=== PATIENT | female | born 1965 | race African-American/Black ===

== ENCOUNTER 2017-01-22 09:29 | Emergency (ER) | payer MEDICAID ==
[~2017-01-22] VITALS: Ht 162.6 cm; Wt 55.0 kg
[~2017-01-22 09:29] MED LIST: DIPH25CA83 PO; FLUO10CA63 PO; GEMF600T PO; HYDR-519 PO; OMEP40CA34 PO; ONDA4TAB5 PO; QUET100T PO
[2017-01-22 09:32] VITALS: BP 106/66
[2017-01-22] MEDS ORDERED: SODIUM CHLORIDE 0.9% 1,000 ML IV ONE (10:42)
[2017-01-22] MEDS ORDERED: MORPHINE SULFATE 4 MG/ML CPJ (NOT FOR IM USE) IV STA (10:42)
[2017-01-22 11:25] LABS: BASOPHILS % 0.6 % (0.0-2.0); EOSINOPHILS % 0.7 % (0.0-5.0); HEMATOCRIT. 37.7 % (36.0-48.0); HEMOGLOBIN. 12.4 g/dL (12.0-16.0); LYMPHOCYTES % 27.5 % (20.0-50.0); MEAN CORPUSCULAR HEMOGLOBIN 30.3 pg (28.0-32.0); MEAN CORPUSCULAR HGB CONC 32.9 g/dL (31.0-37.0); MEAN CORPUSCULAR VOLUME 92.3 fL (81.0-99.0); MEAN PLATELET VOLUME 6.6 fl (7.4-10.4); MONOCYTES % 7.1 % (2.0-8.0); NEUTROPHILS % 64.1 % (40.0-76.0); PLATELET 407 x1000/uL (130-400); RED BLOOD CELL COUNT 4.09 mill/uL (4.2-5.4); RED CELL DISTRIBUTION WIDTH 16.2 % (11.6-14.6); WHITE BLOOD COUNT 6.9 x1000/uL (4.5-11.0)
[2017-01-22 11:32] LABS: PROTHROMBIN TIME 10.5 sec
[2017-01-22 11:40] LABS: ALANINE AMINOTRANSFERASE 18 IU/L (13-61); ANION GAP 9; CALCIUM 8.9 mg/dL (8.5-10.1); CARBON DIOXIDE 29 mEq/L (21-32); CHLORIDE 106 mEq/L (98-107); INDEX HEMOLYSI 1 (1-3); INDEX ICTERIC 1 (1-4); INDEX LIPEMIC 1 (1-3); LIPASE 259 IU/L (73-393); UREA NITROGEN BLOOD 16 mg/dL (7-21); eGFR > 60 mL/min (>60)
[2017-01-22] MEDS ORDERED: DIPHENHYDRAMINE 50MG/ML VIAL IV ONE (12:00)
[2017-01-22] MEDS ORDERED: ONDANSETRON HCL 4MG/2ML VIAL IV ONE (12:00)
[2017-01-22] MEDS ORDERED: MORPHINE SULFATE 4 MG/ML CPJ (NOT FOR IM USE) IV ONE (12:45)
== END 2017-01-22 13:50 | disposition home or self-care (01) ==
LOC: ER 10:26
DX: R10.84 Generalized abdominal pain (principal); R11.2 Nausea with vomiting, unspecified; J44.9 Chronic obstructive pulmonary disease, unspecified; K59.00 Constipation, unspecified; Z87.19 Personal history of other diseases of the digestive system; Z98.890 Other specified postprocedural states; F17.210 Nicotine dependence, cigarettes, uncomplicated
CPT/HCPCS: 36415; 74176; 80053; 83690; 85025; 85610; 96361; 96374; 96375; 96376; 99285; J1200; J2270; J2405; J7030; Z7610

== ENCOUNTER 2017-01-22 13:57 | Emergency (ER) | payer MEDICAID | END 2017-01-22 16:07 | disposition left against medical advice (07) | LOC: ER 15:56 | DX: R07.9 Chest pain, unspecified (principal); R10.9 Unspecified abdominal pain; Z53.21 Procedure and treatment not carried out due to patient leaving prior to being seen by health care provider ==

== ENCOUNTER 2017-02-27 13:39 | Emergency (ER) | payer MEDICAID ==
[~2017-02-27] VITALS: Ht 162.6 cm; Wt 55.0 kg
[2017-02-27] MEDS ORDERED: SODIUM CHLORIDE 0.9% 1,000 ML IV ONE (14:51)
[2017-02-27] MEDS ORDERED: ONDANSETRON HCL 4MG/2ML VIAL IV STA (14:51)
[2017-02-27] MEDS ORDERED: MORPHINE SULFATE 4 MG/ML CPJ (NOT FOR IM USE) IV STA (14:51)
[2017-02-27] MEDS ORDERED: FAMOTIDINE 20MG/2ML VIAL IV ONE (15:00)
[2017-02-27 15:20] LABS: BASOPHILS % 0.6 % (0.0-2.0); HEMATOCRIT. 34.9 % (36.0-48.0); HEMOGLOBIN. 11.7 g/dL (12.0-16.0); LYMPHOCYTES % 33.7 % (20.0-50.0); MEAN CORPUSCULAR HEMOGLOBIN 30.2 pg (28.0-32.0); MEAN CORPUSCULAR HGB CONC 33.5 g/dL (31.0-37.0); MEAN CORPUSCULAR VOLUME 90.1 fL (81.0-99.0); MEAN PLATELET VOLUME 6.5 fl (7.4-10.4); NEUTROPHILS % 58.7 % (40.0-76.0); PLATELET 411 x1000/uL (130-400); RED BLOOD CELL COUNT 3.88 mill/uL (4.2-5.4); RED CELL DISTRIBUTION WIDTH 15.1 % (11.6-14.6); WHITE BLOOD COUNT 8.3 x1000/uL (4.5-11.0)
[2017-02-27 15:26] LABS: PROTHROMBIN TIME 10.7 sec
[2017-02-27 15:27] LABS: ALBUMIN 3.9 g/dL (3.4-5.0); CHLORIDE 108 mEq/L (98-107); INDEX HEMOLYSI 1 (1-3); INDEX ICTERIC 1 (1-4); INDEX LIPEMIC 1 (1-3); LIPASE 170 IU/L (73-393)
[2017-02-27 15:29] LABS: CLARITY URINE CLEAR (CLEAR); COLOR URINE YELLOW (YELLOW); GLUCOSE URINE NEGATIVE (NEGATIVE); KETONES URINE TRACE (NEGATIVE); LEUKOCYTE ESTERASE URINE TRACE (NEGATIVE); NITRITE URINE NEGATIVE (NEGATIVE); OCCULT BLOOD URINE NEGATIVE (NEGATIVE); PH URINE 5.5 (4.5-8.0); PROTEIN URINE NEGATIVE (NEGATIVE); SPECIFIC GRAVITY URINE 1.041 (1.005-1.030)
[2017-02-27 15:31] LABS: HCG SCREEN NEGATIVE
[2017-02-27 15:36] LABS: ALANINE AMINOTRANSFERASE 10 IU/L (13-61); ANION GAP 12; CARBON DIOXIDE 25 mEq/L (21-32); ETHANOL BLOOD < 10 mg/dL; NT PRO B-TYPE NATRIURETIC PEP 79 pg/mL (5-125); TROPONIN I < 0.02 ng/mL (0.00-0.04); UREA NITROGEN BLOOD 15 mg/dL (7-21); eGFR > 60 mL/min (>60)
[2017-02-27 15:43] LABS: SQUAMOUS EPITHELIAL CELL URINE 1+ /lpf (RARE/1+)
[2017-02-27 15:44] LABS: BACTERIA URINE 2+; RBC URINE 0-2 /hpf (0-2)
[2017-02-27 15:53] LABS: *AMPHETAMINES SCREEN URINE NEGATIVE (NEGATIVE); *BARBITURATES SCREEN URINE NEGATIVE (NEGATIVE); *BENZODIAZEPINES SCREEN URINE NEGATIVE (NEGATIVE); *COCAINE SCREEN URINE NEGATIVE (NEGATIVE); CANNABINOID URINE SCREEN NEGATIVE (NEGATIVE); ECSTASY MDMA SCREEN URINE NEGATIVE (NEGATIVE); METHADONE URINE SCREEN NEGATIVE (NEGATIVE); OPIATES URINE SCREEN PRESUMTIVE POSITIVE (NEGATIVE); PHENCYCLIDINE URINE SCREEN NEGATIVE (NEGATIVE)
[2017-02-27] MEDS ORDERED: KETOROLAC 15MG/ML VIAL IV ONE (17:00)
[2017-02-27 17:10] VITALS: BP 148/64
== END 2017-02-27 17:25 | disposition home or self-care (01) ==
LOC: ER 14:41
DX: R07.89 Other chest pain (principal); R11.2 Nausea with vomiting, unspecified; K85.90 Acute pancreatitis without necrosis or infection, unspecified; J44.9 Chronic obstructive pulmonary disease, unspecified; M19.90 Unspecified osteoarthritis, unspecified site; F17.200 Nicotine dependence, unspecified, uncomplicated; Z93.3 Colostomy status; Z88.6 Allergy status to analgesic agent
CPT/HCPCS: 36415; 71010; 80053; 80305; 81001; 83605; 83690; 83880; 84484; 84703; 85025; 85610; 93005; 96374; 96375; 99285; G0482; J1885; J2270; J2405; J3490; J7030; Z7610

== ENCOUNTER 2017-04-24 17:59 | Emergency (ER) | payer MEDICAID ==
[~2017-04-24] VITALS: Ht 162.6 cm; Wt 56.8 kg
[2017-04-24] MEDS ORDERED: MORPHINE SULFATE 4 MG/ML CPJ (NOT FOR IM USE) IV STA (19:51)
[2017-04-24] MEDS ORDERED: METHYLPREDNISOLONE SOD SUCC 125 MG/2 ML VIAL IV STA (19:51)
[2017-04-24] MEDS ORDERED: ONDANSETRON HCL 4MG/2ML VIAL IV STA (19:51)
[2017-04-24] MEDS ORDERED: LEVOFLOXACIN 500MG TABLET PO ONE (20:00)
[2017-04-24] MEDS ORDERED: IPRATROPIUM/ALBUTEROL 0.5-3(2.5)MG/3ML NEB HHN ONE (20:00)
[2017-04-24 20:16] LABS: BASOPHILS % 1.2 % (0.0-2.0); EOSINOPHILS % 0.7 % (0.0-5.0); HEMATOCRIT. 37.2 % (36.0-48.0); HEMOGLOBIN. 12.5 g/dL (12.0-16.0); LYMPHOCYTES % 35.1 % (20.0-50.0); MEAN CORPUSCULAR HEMOGLOBIN 29.7 pg (28.0-32.0); MEAN CORPUSCULAR VOLUME 88.6 fL (81.0-99.0); MEAN PLATELET VOLUME 6.8 fl (7.4-10.4); MONOCYTES % 7.2 % (2.0-8.0); NEUTROPHILS % 55.8 % (40.0-76.0); PLATELET 479 x1000/uL (130-400)
[2017-04-24 20:23] LABS: PARTIAL THROMBOPLASTIN TIME 30.3 sec (24.0-34.0); PROTHROMBIN TIME 10.4 sec
[2017-04-24 20:25] LABS: CARBON DIOXIDE 26 mEq/L (21-32); CHLORIDE 106 mEq/L (98-107)
[2017-04-24 20:28] LABS: CREATINE KINASE 147 IU/L (26-192)
[2017-04-24 20:30] LABS: TROPONIN I < 0.02 ng/mL (0.00-0.04)
[2017-04-24 21:54] LABS: BG BASE EXCESS -1.5 mmol/L (-2.0-2.0); BG CARBOXYHEMOGLOBIN 4.2 % (0.5-1.5); BG DEOXYHEMOGLOBIN 5.5 % (0.0-5.0); BG FRACTION INSPIRED OXYGEN 21; BG HCO3 ACT 23.3 mmol/L (22.0-26.0); BG METHEMOGLOBIN 0.3 % (0.0-1.5); BG OXYGEN SATURATION 94.2 % (92.0-98.5); BG PCO2 39.7 mmHg (35.0-45.0); BG PH 7.387 (7.350-7.450); BG PO2 75.5 mmHg (75.0-100.0); BG SAMPLE SITE RIGHT BRACHIAL; BG TOTAL HEMOGLOBIN 13.8 g/dL (12.0-18.0); BG VENT MODE ROOM AIR
[2017-04-24] MEDS ORDERED: VISCOUS LIDOCAINE 2% 15 ML UDC PO STA (22:27)
[2017-04-24] MEDS ORDERED: MAGNESIUM/ALUMINUM HYDROXIDE/SIMETHICONE 30ML UDC PO STA (22:27)
[2017-04-24] MEDS ORDERED: DICYCLOMINE 10 MG/5 ML ORAL SYR PO STA (22:27)
[2017-04-24] MEDS ORDERED: FAMOTIDINE 20MG/2ML VIAL IV ONE (22:30)
[2017-04-24 23:05] VITALS: BP 126/85
== END 2017-04-25 00:15 | disposition home or self-care (01) ==
LOC: ER 04-25 00:14
DX: J44.1 Chronic obstructive pulmonary disease with (acute) exacerbation (principal); R07.89 Other chest pain; K21.9 Gastro-esophageal reflux disease without esophagitis; M19.90 Unspecified osteoarthritis, unspecified site; K29.70 Gastritis, unspecified, without bleeding; F17.210 Nicotine dependence, cigarettes, uncomplicated; Z71.6 Tobacco abuse counseling; Z87.11 Personal history of peptic ulcer disease; Z98.890 Other specified postprocedural states; Z88.6 Allergy status to analgesic agent
CPT/HCPCS: 36415; 36600; 71010; 80053; 82375; 82550; 82805; 83605; 83690; 83880; 84443; 84484; 85025; 85610; 85730; 87040; 93005; 94640; 96374; 96375; 99285; J2270; J2405; J2930; J3490; Z7610; J7620

== ENCOUNTER 2017-04-26 00:50 | Emergency (ER) | payer MEDICAID ==
[~2017-04-26] VITALS: Ht 162.6 cm; Wt 55.0 kg
[2017-04-26] MEDS ORDERED: ACETAMINOPHEN 325MG TABLET PO ONE (02:00)
[2017-04-26] MEDS ORDERED: DIPHENHYDRAMINE 25MG CAPSULE PO ONE (02:00)
[2017-04-26 02:23] LABS: BASOPHILS % 0.5 % (0.0-2.0); EOSINOPHILS % 0.2 % (0.0-5.0); HEMATOCRIT. 33.9 % (36.0-48.0); HEMOGLOBIN. 11.2 g/dL (12.0-16.0); LYMPHOCYTES % 28.4 % (20.0-50.0); MEAN CORPUSCULAR HEMOGLOBIN 29.5 pg (28.0-32.0); MEAN CORPUSCULAR VOLUME 89.2 fL (81.0-99.0); MEAN PLATELET VOLUME 6.4 fl (7.4-10.4); MONOCYTES % 6.9 % (2.0-8.0); PLATELET 408 x1000/uL (130-400); RED CELL DISTRIBUTION WIDTH 15.1 % (11.6-14.6)
[2017-04-26 02:28] LABS: INR 1.1
[2017-04-26 02:33] LABS: CARBON DIOXIDE 25 mEq/L (21-32); CHLORIDE 104 mEq/L (98-107)
[2017-04-26 03:40] VITALS: BP 152/81
== END 2017-04-26 04:31 | disposition home or self-care (01) ==
LOC: ER 00:50
DX: R10.13 Epigastric pain (principal); K21.9 Gastro-esophageal reflux disease without esophagitis; J44.9 Chronic obstructive pulmonary disease, unspecified; Z87.11 Personal history of peptic ulcer disease; Z88.6 Allergy status to analgesic agent
CPT/HCPCS: 36415; 74176; 80053; 85025; 85610; 93005; 99285; Z7610; Q0163

== ENCOUNTER 2017-06-27 20:42 | Emergency (ER) | payer MEDICAID, OTHER ==
[~2017-06-27] VITALS: Ht 162.6 cm; Wt 59.0 kg
[~2017-06-27 20:42] MED LIST changes: +CARI350T27 PO; +DIPH25CA6 PO; -DIPH25CA83 PO; -FLUO10CA63 PO; -GEMF600T PO; -HYDR-519 PO; -ONDA4TAB5 PO; +ONDA4TAB51 PO; +PROM6.25 PO; -QUET100T PO; +TRAZ-132 PO
[2017-06-27 22:57] LABS: BASOPHILS % 0.6 % (0.0-2.0); HEMATOCRIT. 28.6 % (36.0-48.0); HEMOGLOBIN. 9.6 g/dL (12.0-16.0); LYMPHOCYTES % 34.4 % (20.0-50.0); MEAN CORPUSCULAR HEMOGLOBIN 28.8 pg (28.0-32.0); MEAN CORPUSCULAR VOLUME 86.3 fL (81.0-99.0); MEAN PLATELET VOLUME 6.7 fl (7.4-10.4); MONOCYTES % 10.3 % (2.0-8.0); NEUTROPHILS % 52.7 % (40.0-76.0); PLATELET 492 x1000/uL (130-400); RED BLOOD CELL COUNT 3.31 mill/uL (4.2-5.4); RED CELL DISTRIBUTION WIDTH 16.7 % (11.6-14.6)
[2017-06-27 23:02] LABS: PROTHROMBIN TIME 10.5 sec (9.4-11.6)
[2017-06-27 23:05] LABS: CARBON DIOXIDE 24 mEq/L (21-32); CHLORIDE 109 mEq/L (98-107)
[2017-06-27 23:06] LABS: ETHANOL BLOOD < 10 mg/dL
[2017-06-27 23:12] LABS: TROPONIN I < 0.02 ng/mL (0.00-0.04)
[2017-06-27] MEDS ORDERED: ACETAMINOPHEN 325MG TABLET PO ONE (23:30)
[2017-06-28 00:03] VITALS: BP 128/72
== END 2017-06-28 00:10 | disposition left against medical advice (07) ==
LOC: ER 22:18
DX: R07.9 Chest pain, unspecified (principal); K21.9 Gastro-esophageal reflux disease without esophagitis; F41.9 Anxiety disorder, unspecified; F31.9 Bipolar disorder, unspecified; F17.200 Nicotine dependence, unspecified, uncomplicated; Z88.6 Allergy status to analgesic agent
CPT/HCPCS: 36415; 71010; 80053; 83880; 84484; 85025; 85610; 93005; 99285; G0482

== ENCOUNTER 2017-10-09 17:56 | Emergency (ER) | payer MEDICAID ==
[~2017-10-09] VITALS: Ht 162.6 cm; Wt 61.5 kg
[2017-10-09] MEDS ORDERED: HYDR-519 PO (18:26)
[2017-10-09] MEDS ORDERED: MORPHINE SULFATE 4 MG/ML CPJ (NOT FOR IM USE) IV STA (18:54)
[2017-10-09] MEDS ORDERED: SODIUM CHLORIDE 0.9% 1,000 ML IV ONE (18:54)
[2017-10-09] MEDS ORDERED: ONDANSETRON HCL 4MG/2ML VIAL IV STA (18:54)
[2017-10-09 19:28] LABS: BASOPHILS % 1.1 % (0.0-2.0); EOSINOPHILS % 1.9 % (0.0-5.0); HEMOGLOBIN. 11.1 g/dL (12.0-16.0); LYMPHOCYTES % 49.8 % (20.0-50.0); MEAN CORPUSCULAR HEMOGLOBIN 26.5 pg (28.0-32.0); MEAN CORPUSCULAR VOLUME 83.3 fL (81.0-99.0); MEAN PLATELET VOLUME 6.5 fl (7.4-10.4); MONOCYTES % 8.8 % (2.0-8.0); NEUTROPHILS % 38.4 % (40.0-76.0); PLATELET 394 x1000/uL (130-400); RED CELL DISTRIBUTION WIDTH 17.1 % (11.6-14.6)
[2017-10-09 19:33] LABS: PROTHROMBIN TIME 10.7 sec (9.4-11.6)
[2017-10-09 19:43] LABS: CARBON DIOXIDE 26 mEq/L (21-32); CHLORIDE 105 mEq/L (98-107); TROPONIN I < 0.02 ng/mL (0.00-0.04)
[2017-10-09 19:51] LABS: CLARITY URINE CLEAR (CLEAR); COLOR URINE YELLOW (YELLOW); GLUCOSE URINE NEGATIVE (NEGATIVE); KETONES URINE NEGATIVE (NEGATIVE); LEUKOCYTE ESTERASE URINE NEGATIVE (NEGATIVE); NITRITE URINE NEGATIVE (NEGATIVE); OCCULT BLOOD URINE NEGATIVE (NEGATIVE); PH URINE 5.5 (4.5-8.0); PROTEIN URINE NEGATIVE (NEGATIVE); SPECIFIC GRAVITY URINE 1.025 (1.005-1.030); UROBILINOGEN URINE 0.2 E.U./dL (0.2-1.0)
[2017-10-09 22:00] VITALS: BP 122/80
== END 2017-10-10 02:12 | disposition home or self-care (01) ==
LOC: ER 17:56
DX: R07.89 Other chest pain (principal); R11.0 Nausea; R19.7 Diarrhea, unspecified; K21.9 Gastro-esophageal reflux disease without esophagitis; J43.9 Emphysema, unspecified; F17.210 Nicotine dependence, cigarettes, uncomplicated; Z87.11 Personal history of peptic ulcer disease; Z87.19 Personal history of other diseases of the digestive system; K83.8 Other specified diseases of biliary tract
CPT/HCPCS: 36415; 71010; 74177; 76705; 80053; 81003; 83880; 84484; 85025; 85610; 93005; 96361; 96374; 96375; 99285; J2270; J2405; J7030; Z7610

== ENCOUNTER 2017-10-31 11:37 | Emergency (ER) | payer MEDICAID ==
[~2017-10-31] VITALS: Ht 162.6 cm; Wt 59.0 kg
[~2017-10-31 11:37] MED LIST changes: +HYDR-519 PO
[2017-10-31] MEDS ORDERED: MORPHINE SULFATE 4 MG/ML CPJ (NOT FOR IM USE) IV STA (15:43)
[2017-10-31] MEDS ORDERED: SODIUM CHLORIDE 0.9% 1,000 ML IV ONE (15:43)
[2017-10-31] MEDS ORDERED: ONDANSETRON HCL 4MG/2ML VIAL IV STA (15:43)
[2017-10-31 16:05] LABS: BASOPHILS % 1.3 % (0.0-2.0); EOSINOPHILS % 1.3 % (0.0-5.0); HEMATOCRIT. 35.1 % (36.0-48.0); HEMOGLOBIN. 11.4 g/dL (12.0-16.0); LYMPHOCYTES % 41.9 % (20.0-50.0); MEAN CORPUSCULAR HEMOGLOBIN 26.8 pg (28.0-32.0); MEAN PLATELET VOLUME 6.5 fl (7.4-10.4); MONOCYTES % 7.1 % (2.0-8.0); NEUTROPHILS % 48.4 % (40.0-76.0); PLATELET 492 x1000/uL (130-400); RED BLOOD CELL COUNT 4.24 mill/uL (4.2-5.4); RED CELL DISTRIBUTION WIDTH 17.4 % (11.6-14.6)
[2017-10-31 16:08] LABS: INR 1.1
[2017-10-31 16:12] LABS: CHLORIDE 106 mEq/L (98-107)
[2017-10-31 16:18] LABS: CARBON DIOXIDE 24 mEq/L (21-32)
[2017-10-31] MEDS ORDERED: IOHEXOL-300 100 ML BOTTLE ONE (16:42)
[2017-10-31] MEDS ORDERED: DIPHENHYDRAMINE 50MG/ML VIAL IV ONE (16:45)
[2017-10-31 19:04] LABS: KETONES URINE NEGATIVE (NEGATIVE); LEUKOCYTE ESTERASE URINE NEGATIVE (NEGATIVE); NITRITE URINE NEGATIVE (NEGATIVE); OCCULT BLOOD URINE NEGATIVE (NEGATIVE); PROTEIN URINE NEGATIVE (NEGATIVE); SPECIFIC GRAVITY URINE 1.026 (1.005-1.030); UROBILINOGEN URINE 0.2 E.U./dL (0.2-1.0)
[2017-10-31 19:06] LABS: CLARITY URINE CLEAR (CLEAR); COLOR URINE YELLOW (YELLOW)
[2017-10-31 19:25] VITALS: BP 113/54
== END 2017-10-31 19:55 | disposition home or self-care (01) ==
LOC: ER 13:04
DX: R10.84 Generalized abdominal pain (principal); G89.29 Other chronic pain; R11.2 Nausea with vomiting, unspecified; R19.7 Diarrhea, unspecified; K21.9 Gastro-esophageal reflux disease without esophagitis; I51.7 Cardiomegaly; F17.210 Nicotine dependence, cigarettes, uncomplicated; Z87.19 Personal history of other diseases of the digestive system; Z86.59 Personal history of other mental and behavioral disorders; Z88.6 Allergy status to analgesic agent
CPT/HCPCS: 36415; 74177; 80053; 81003; 81025; 83690; 85025; 85610; 93005; 96361; 96374; 96375; 99285; J1200; J2270; J2405; Q9967; J7030

== ENCOUNTER 2017-11-12 09:52 | Inpatient (IN) | payer MEDICAID ==
[~2017-11-12] VITALS: Ht 162.6 cm; Wt 59.9 kg
[2017-11-12] MEDS ORDERED: ONDANSETRON HCL 4MG/2ML VIAL IV STA (11:50)
[2017-11-12] MEDS ORDERED: MORPHINE SULFATE 4 MG/ML CPJ (NOT FOR IM USE) IV STA (11:50)
[2017-11-12] MEDS ORDERED: SODIUM CHLORIDE 0.9% 1,000 ML IV ONE (11:50)
[2017-11-12 12:22] LABS: HEMATOCRIT. 36.5 % (36.0-48.0); HEMOGLOBIN. 11.8 g/dL (12.0-16.0); LYMPHOCYTES % 22.9 % (20.0-50.0); MEAN CORPUSCULAR HEMOGLOBIN 26.8 pg (28.0-32.0); MEAN PLATELET VOLUME 6.5 fl (7.4-10.4); MONOCYTES % 5.9 % (2.0-8.0); NEUTROPHILS % 69.5 % (40.0-76.0); PLATELET 491 x1000/uL (130-400); RED CELL DISTRIBUTION WIDTH 18.1 % (11.6-14.6)
[2017-11-12 12:23] LABS: BASOPHILS % 0.4 % (0.0-2.0); EOSINOPHILS % 1.3 % (0.0-5.0)
[2017-11-12 12:28] LABS: PROTHROMBIN TIME 10.7 sec (9.4-11.6)
[2017-11-12 12:33] LABS: CARBON DIOXIDE 24 mEq/L (21-32); CHLORIDE 104 mEq/L (98-107); ETHANOL BLOOD < 10 mg/dL
[2017-11-12] MEDS ORDERED: IOHEXOL-300 100 ML BOTTLE ONE (13:42)
[2017-11-12] MEDS ORDERED: DIPHENHYDRAMINE 50MG/ML VIAL IV ONE (14:30)
[2017-11-12 14:54] LABS: CLARITY URINE CLEAR (CLEAR); COLOR URINE YELLOW (YELLOW); KETONES URINE NEGATIVE (NEGATIVE); LEUKOCYTE ESTERASE URINE NEGATIVE (NEGATIVE); NITRITE URINE NEGATIVE (NEGATIVE); OCCULT BLOOD URINE NEGATIVE (NEGATIVE); PH URINE 5.5 (4.5-8.0); PROTEIN URINE NEGATIVE (NEGATIVE); SPECIFIC GRAVITY URINE 1.014 (1.005-1.030); UROBILINOGEN URINE 0.2 E.U./dL (0.2-1.0)
[2017-11-12 15:15] LABS: *AMPHETAMINES SCREEN URINE NEGATIVE (NEGATIVE); *BARBITURATES SCREEN URINE NEGATIVE (NEGATIVE); *BENZODIAZEPINES SCREEN URINE NEGATIVE (NEGATIVE); *COCAINE SCREEN URINE NEGATIVE (NEGATIVE); CANNABINOID URINE SCREEN NEGATIVE (NEGATIVE); METHADONE URINE SCREEN NEGATIVE (NEGATIVE); OPIATES URINE SCREEN PRESUMTIVE POSITIVE (NEGATIVE); PHENCYCLIDINE URINE SCREEN NEGATIVE (NEGATIVE)
[2017-11-12] MEDS ORDERED: MORPHINE SULFATE 4 MG/ML CPJ (NOT FOR IM USE) IV ONE (16:00)
[2017-11-12] MEDS: DIPHENHYDRAMINE 50MG/ML VIAL IV PRN (23:24)
[2017-11-12] MEDS: MORPHINE SULFATE 4 MG/ML CPJ (NOT FOR IM USE) IV PRN (23:24)
[2017-11-12] MEDS ORDERED: SERTRALINE HCL 50MG TABLET PO NR (23:28)
[2017-11-13 02:00] VITALS: BP 95/59
[2017-11-13] MEDS ORDERED: LORA-250 PO (02:03)
[2017-11-13 02:29] VITALS: BP 95/59
[2017-11-13] MEDS ORDERED: DIPHENHYDRAMINE 25MG CAPSULE PO PRN (03:45)
[2017-11-13] MEDS ORDERED: ONDANSETRON 4MG ODT PO PRN (03:45)
[2017-11-13] MEDS ORDERED: HYDROCODONE/ACETAMINOPHEN 10/325MG TABLET PO PRN (03:45)
[2017-11-13] MEDS ORDERED: PROMETHAZINE HCL 6.25 MG/5 ML 118ML PO PRN (05:00)
[2017-11-13] MEDS: MORPHINE SULFATE 4 MG/ML CPJ (NOT FOR IM USE) IV PRN ×4 (05:39→20:26)
[2017-11-13] MEDS: DIPHENHYDRAMINE 50MG/ML VIAL IV PRN ×2 (07:53→20:25)
[2017-11-13] MEDS: OMEPRAZOLE 20MG CAPSULE EXTENDED RELEASE PO SCH (07:53)
[2017-11-13 08:00] VITALS: BP 109/73
[2017-11-13] MEDS ORDERED: MEDICATION NOT ON FORMULARY EA (Omeprazole 40 MG) PO SCH (09:00)
[2017-11-13] MEDS: CARISOPRODOL 350 MG TABLET PO SCH ×3 (09:56→18:36)
[2017-11-13] MEDS: LORAZEPAM 1MG TABLET PO PRN (11:59)
[2017-11-13 12:00] VITALS: BP 94/61
[2017-11-13 16:00] VITALS: BP 104/61
[2017-11-14] VITALS: BP 115/76
[2017-11-14] MEDS: TRAZODONE HCL 100MG TABLET PO PRN ×2 (00:50→22:31)
[2017-11-14] MEDS: MORPHINE SULFATE 4 MG/ML CPJ (NOT FOR IM USE) IV PRN ×5 (00:51→20:45)
[2017-11-14] MEDS: DIPHENHYDRAMINE 50MG/ML VIAL IV PRN ×3 (04:04→22:31)
[2017-11-14 04:18] VITALS: BP 110/67
[2017-11-14] MEDS: OMEPRAZOLE 20MG CAPSULE EXTENDED RELEASE PO SCH (07:20)
[2017-11-14 08:00] VITALS: BP 110/66
[2017-11-14] MEDS: CARISOPRODOL 350 MG TABLET PO SCH ×2 (09:31→13:04)
[2017-11-14 12:00] VITALS: BP 111/64
[2017-11-14] MEDS: LORAZEPAM 1MG TABLET PO PRN (14:02)
[2017-11-14 16:00] VITALS: BP 88/55
[2017-11-14] MEDS ORDERED: CARISOPRODOL 350 MG TABLET PO PRN (17:15)
[2017-11-14] MEDS: SODIUM CHLORIDE 0.9% 1,000 ML IV SCH (18:14)
[2017-11-14 20:00] VITALS: BP 109/64
[2017-11-15] VITALS: BP 103/61
[2017-11-15] MEDS: MORPHINE SULFATE 4 MG/ML CPJ (NOT FOR IM USE) IV PRN ×3 (01:29→09:58)
[2017-11-15 04:00] VITALS: BP 107/63
[2017-11-15] MEDS: OMEPRAZOLE 20MG CAPSULE EXTENDED RELEASE PO SCH (07:38)
[2017-11-15 08:00] VITALS: BP 106/63
[2017-11-15] MEDS: SODIUM CHLORIDE 0.9% 1,000 ML IV SCH (08:04)
[2017-11-15] MEDS: DIPHENHYDRAMINE 50MG/ML VIAL IV PRN (08:14)
[2017-11-15 12:00] VITALS: BP 124/71
[2017-11-15 13:20] VITALS: BP 124/71
== END 2017-11-15 13:45 | disposition home or self-care (01) | DRG 241 ==
LOC: ER 10:35 → 6EST 14:22 → EDBEDREQ 14:25 → ENRESERV 11-13 00:09 → EDBEDREQ 11-13 00:23
PROVIDERS: ADMIT Internal Medicine; ATTEND Internal Medicine
DX: K29.70 Gastritis, unspecified, without bleeding (principal); K31.1 Adult hypertrophic pyloric stenosis; J43.9 Emphysema, unspecified; D64.9 Anemia, unspecified; K21.9 Gastro-esophageal reflux disease without esophagitis; F17.210 Nicotine dependence, cigarettes, uncomplicated; F41.9 Anxiety disorder, unspecified; Z87.11 Personal history of peptic ulcer disease; Z79.899 Other long term (current) drug therapy; Z88.6 Allergy status to analgesic agent; Z93.3 Colostomy status
CPT/HCPCS: 36415; 74177; 80053; 80305; 81003; 83690; 84484; 85025; 85610; 85730; 93005; 96374; 96375; 96376; 99285; G0482; J1200; J2270; J2405; J7030; Q0169; Q9967

== ENCOUNTER 2017-12-13 13:48 | Emergency (ER) | payer MEDICAID ==
[~2017-12-13] VITALS: Ht 162.6 cm; Wt 61.0 kg
[~2017-12-13 13:48] MED LIST changes: +LORA-250 PO
[2017-12-13] MEDS ORDERED: ONDANSETRON HCL 4MG/2ML VIAL IV STA (16:55)
[2017-12-13] MEDS ORDERED: MORPHINE SULFATE 4 MG/ML CPJ (NOT FOR IM USE) IV STA (16:55)
[2017-12-13] MEDS ORDERED: SODIUM CHLORIDE 0.9% 1,000 ML IV ONE (16:55)
[2017-12-13 17:25] LABS: BASOPHILS % 0.4 % (0.0-2.0); EOSINOPHILS % 1.8 % (0.0-5.0); HEMATOCRIT. 34.4 % (36.0-48.0); HEMOGLOBIN. 11.1 g/dL (12.0-16.0); LYMPHOCYTES % 44.4 % (20.0-50.0); MEAN CORPUSCULAR HEMOGLOBIN 26.8 pg (28.0-32.0); MEAN CORPUSCULAR VOLUME 83.1 fL (81.0-99.0); MEAN PLATELET VOLUME 6.5 fl (7.4-10.4); MONOCYTES % 7.9 % (2.0-8.0); NEUTROPHILS % 45.5 % (40.0-76.0); PLATELET 393 x1000/uL (130-400); RED BLOOD CELL COUNT 4.14 mill/uL (4.2-5.4); RED CELL DISTRIBUTION WIDTH 19.5 % (11.6-14.6)
[2017-12-13 17:34] LABS: CHLORIDE 107 mEq/L (98-107)
[2017-12-13] MEDS ORDERED: MECLIZINE 25MG TABLET PO ONE (18:15)
[2017-12-13 18:27] LABS: CLARITY URINE CLEAR (CLEAR); COLOR URINE YELLOW (YELLOW); KETONES URINE NEGATIVE (NEGATIVE); LEUKOCYTE ESTERASE URINE TRACE (NEGATIVE); NITRITE URINE NEGATIVE (NEGATIVE); OCCULT BLOOD URINE NEGATIVE (NEGATIVE); PH URINE 5.5 (4.5-8.0); PROTEIN URINE NEGATIVE (NEGATIVE); SPECIFIC GRAVITY URINE 1.018 (1.005-1.030); UROBILINOGEN URINE 0.2 E.U./dL (0.2-1.0)
[2017-12-13 18:38] LABS: *AMPHETAMINES SCREEN URINE NEGATIVE (NEGATIVE); *BARBITURATES SCREEN URINE NEGATIVE (NEGATIVE); *BENZODIAZEPINES SCREEN URINE NEGATIVE (NEGATIVE); *COCAINE SCREEN URINE NEGATIVE (NEGATIVE); CANNABINOID URINE SCREEN NEGATIVE (NEGATIVE); METHADONE URINE SCREEN NEGATIVE (NEGATIVE); OPIATES URINE SCREEN PRESUMTIVE POSITIVE (NEGATIVE); PHENCYCLIDINE URINE SCREEN NEGATIVE (NEGATIVE)
[2017-12-13 19:40] VITALS: BP 123/74
== END 2017-12-13 20:02 | disposition home or self-care (01) ==
LOC: ER 13:48
DX: R10.9 Unspecified abdominal pain (principal); R19.7 Diarrhea, unspecified; R11.0 Nausea; R42 Dizziness and giddiness; M79.1 Myalgia; K21.9 Gastro-esophageal reflux disease without esophagitis; F41.9 Anxiety disorder, unspecified; F17.200 Nicotine dependence, unspecified, uncomplicated; Z88.6 Allergy status to analgesic agent
CPT/HCPCS: 36415; 71045; 80053; 80305; 81001; 81025; 83690; 85025; 93005; 96361; 96374; 96375; 99285; J2270; J2405; J7030; Z7610; J8597

== ENCOUNTER 2017-12-23 07:23 | Inpatient (IN) | payer MEDICAID ==
[~2017-12-23] VITALS: Ht 162.6 cm; Wt 63.5 kg
[~2017-12-23 07:23] MED LIST changes: -PROM6.25 PO; +PROM6.254 PO; -TRAZ-132 PO; +TRAZ-213 PO
[2017-12-23] MEDS ORDERED: MORPHINE SULFATE 4 MG/ML CPJ (NOT FOR IM USE) IV STA (08:20)
[2017-12-23] MEDS ORDERED: ONDANSETRON HCL 4MG/2ML INJ IV STA (08:20)
[2017-12-23] MEDS ORDERED: ASPIRIN 81MG TABLET PO STA (08:20)
[2017-12-23] MEDS: NITROGLYCERIN 0.4MG TABLET SL SL PRN ×2 (08:39→08:46)
[2017-12-23 09:05] LABS: EOSINOPHILS % 1.9 % (0.0-5.0); HEMATOCRIT. 34.3 % (36.0-48.0); HEMOGLOBIN. 11.2 g/dL (12.0-16.0); LYMPHOCYTES % 22.1 % (20.0-50.0); MEAN CORPUSCULAR HEMOGLOBIN 27.7 pg (28.0-32.0); MEAN CORPUSCULAR VOLUME 84.8 fL (81.0-99.0); MEAN PLATELET VOLUME 6.5 fl (7.4-10.4); MONOCYTES % 6.1 % (2.0-8.0); NEUTROPHILS % 68.9 % (40.0-76.0); PLATELET 418 x1000/uL (130-400); RED BLOOD CELL COUNT 4.05 mill/uL (4.2-5.4); RED CELL DISTRIBUTION WIDTH 18.4 % (11.6-14.6)
[2017-12-23 09:16] LABS: CHLORIDE 107 mEq/L (98-107); PARTIAL THROMBOPLASTIN TIME 31.7 sec (23.4-31.0); PROTHROMBIN TIME 10.2 sec (9.4-11.6)
[2017-12-23] MEDS ORDERED: MORPHINE SULFATE 4 MG/ML CPJ (NOT FOR IM USE) IV PRN ×2 (12:10→16:00)
[2017-12-23] MEDS ORDERED: QUET300T2 PO (14:02)
[2017-12-23] MEDS ORDERED: MAGN296S49 PO (14:02)
[2017-12-23 14:14] VITALS: BP 100/50
[2017-12-23] MEDS ORDERED: ONDANSETRON HCL 4MG/2ML INJ IV PRN (15:00)
[2017-12-23] MEDS ORDERED: MAGNESIUM/ALUMINUM HYDROXIDE/SIMETHICONE 30ML UDC PO PRN (15:00)
[2017-12-23] MEDS ORDERED: LORAZEPAM 0.5MG TABLET PO PRN (15:00)
[2017-12-23] MEDS ORDERED: HYDROMORPHONE HCL/PF 2MG/ML CPJ IV PRN (15:00)
[2017-12-23] MEDS ORDERED: CLONIDINE 0.1MG TABLET PO PRN (15:00)
[2017-12-23] MEDS ORDERED: ACETAMINOPHEN 650MG/20.3ML UDC GT PRN (15:00)
[2017-12-23] MEDS: DEXT 5%/0.45% NACL 1000ML 1,000 ML IV SCH (16:58)
[2017-12-23] MEDS: ENOXAPARIN 40MG/0.4ML SYR SUBCUT SCH (16:58)
[2017-12-23] MEDS: HYDROCODONE/ACETAMINOPHEN 5/325MG TABLET PO PRN (18:35)
[2017-12-23 20:00] VITALS: BP 103/62
[2017-12-23] MEDS: LORAZEPAM 2MG/ML CPJ IV PRN (20:48)
[2017-12-23] MEDS ORDERED: ONDANSETRON 4MG ODT PO PRN (22:15)
[2017-12-23] MEDS ORDERED: HYDROCODONE/ACETAMINOPHEN 10/325MG TABLET PO PRN (22:15)
[2017-12-23] MEDS ORDERED: LORAZEPAM 1MG TABLET PO PRN (22:15)
[2017-12-23] MEDS ORDERED: DIPHENHYDRAMINE 25MG CAPSULE PO PRN (22:15)
[2017-12-23] MEDS ORDERED: TRAZODONE HCL 100MG TABLET PO PRN (22:15)
[2017-12-24] VITALS: BP 98/62
[2017-12-24] MEDS ORDERED: PROMETHAZINE HCL 6.25 MG/5 ML 118ML PO PRN
[2017-12-24] MEDS: MORPHINE SULFATE 4 MG/ML CPJ (NOT FOR IM USE) IV PRN ×6 (00:33→21:36)
[2017-12-24] MEDS: LORAZEPAM 2MG/ML CPJ IV PRN (02:12)
[2017-12-24 04:00] VITALS: BP 115/63
[2017-12-24] MEDS: OMEPRAZOLE 20MG CAPSULE EXTENDED RELEASE PO SCH (06:03)
[2017-12-24] MEDS: HYDROCODONE/ACETAMINOPHEN 5/325MG TABLET PO PRN ×2 (06:04→11:08)
[2017-12-24 06:34] LABS: BASOPHILS % 0.6 % (0.0-2.0); EOSINOPHILS % 2.2 % (0.0-5.0); HEMATOCRIT. 32.1 % (36.0-48.0); HEMOGLOBIN. 10.4 g/dL (12.0-16.0); LYMPHOCYTES % 35.7 % (20.0-50.0); MEAN CORPUSCULAR HEMOGLOBIN 27.3 pg (28.0-32.0); MEAN CORPUSCULAR VOLUME 84.6 fL (81.0-99.0); MEAN PLATELET VOLUME 6.7 fl (7.4-10.4); MONOCYTES % 9.3 % (2.0-8.0); NEUTROPHILS % 52.2 % (40.0-76.0); PLATELET 409 x1000/uL (130-400); RED CELL DISTRIBUTION WIDTH 18.4 % (11.6-14.6)
[2017-12-24 06:59] LABS: CHLORIDE 103 mEq/L (98-107)
[2017-12-24 07:07] LABS: PHOSPHORUS 4.8 mg/dL (2.5-4.9)
[2017-12-24 08:00] VITALS: BP 99/54
[2017-12-24] MEDS ORDERED: CARISOPRODOL 350 MG TABLET PO SCH (09:00)
[2017-12-24] MEDS: MAGNESIUM CITRATE 300ML SOLUTION PO SCH ×3 (09:54→17:00)
[2017-12-24] MEDS ORDERED: SODIUM POLYSTYRENE SULFONATE 15 G/60 ML BOT PO SCH (10:15)
[2017-12-24] MEDS: CARISOPRODOL 350 MG TABLET PO SCH ×2 (10:36→18:48)
[2017-12-24] MEDS: DEXT 5%/0.45% NACL 1000ML 1,000 ML IV SCH (11:14)
[2017-12-24 11:20] LABS: *AMPHETAMINES SCREEN URINE NEGATIVE (NEGATIVE); *BARBITURATES SCREEN URINE NEGATIVE (NEGATIVE); *BENZODIAZEPINES SCREEN URINE NEGATIVE (NEGATIVE); *COCAINE SCREEN URINE NEGATIVE (NEGATIVE); CANNABINOID URINE SCREEN NEGATIVE (NEGATIVE); METHADONE URINE SCREEN NEGATIVE (NEGATIVE); OPIATES URINE SCREEN PRESUMTIVE POSITIVE (NEGATIVE); PHENCYCLIDINE URINE SCREEN NEGATIVE (NEGATIVE)
[2017-12-24 12:00] VITALS: BP 123/59
[2017-12-24] MEDS: ENOXAPARIN 40MG/0.4ML SYR SUBCUT SCH (15:59)
[2017-12-24 16:00] VITALS: BP 92/52
[2017-12-24 18:40] LABS: *AMPHETAMINES SCREEN URINE NEGATIVE (NEGATIVE); *BARBITURATES SCREEN URINE NEGATIVE (NEGATIVE); *BENZODIAZEPINES SCREEN URINE NEGATIVE (NEGATIVE); *COCAINE SCREEN URINE NEGATIVE (NEGATIVE); CANNABINOID URINE SCREEN NEGATIVE (NEGATIVE); METHADONE URINE SCREEN NEGATIVE (NEGATIVE); OPIATES URINE SCREEN PRESUMTIVE POSITIVE (NEGATIVE); PHENCYCLIDINE URINE SCREEN NEGATIVE (NEGATIVE)
[2017-12-24 20:00] VITALS: BP 103/46
[2017-12-25] VITALS: BP 112/58
[2017-12-25] MEDS: MORPHINE SULFATE 4 MG/ML CPJ (NOT FOR IM USE) IV PRN ×4 (01:44→13:59)
[2017-12-25] MEDS: OMEPRAZOLE 20MG CAPSULE EXTENDED RELEASE PO SCH (05:49)
[2017-12-25 08:00] VITALS: BP 116/69
[2017-12-25] MEDS: DEXT 5%/0.45% NACL 1000ML 1,000 ML IV SCH (08:55)
[2017-12-25] MEDS: CARISOPRODOL 350 MG TABLET PO SCH (09:00)
[2017-12-25] MEDS: MAGNESIUM CITRATE 300ML SOLUTION PO SCH ×2 (09:00→13:00)
[2017-12-25 12:00] VITALS: BP 107/60
[2017-12-25] MEDS: ENOXAPARIN 40MG/0.4ML SYR SUBCUT SCH (15:17)
[2017-12-25 16:00] VITALS: BP 107/52
[2017-12-25 16:24] VITALS: BP 116/69
[2017-12-25 16:31] LABS: BASOPHILS % 0.4 % (0.0-2.0); EOSINOPHILS % 2.8 % (0.0-5.0); LYMPHOCYTES % 40.1 % (20.0-50.0); MEAN CORPUSCULAR HEMOGLOBIN 28.2 pg (28.0-32.0); MEAN CORPUSCULAR VOLUME 84.9 fL (81.0-99.0); MEAN PLATELET VOLUME 6.6 fl (7.4-10.4); MONOCYTES % 11.9 % (2.0-8.0); NEUTROPHILS % 44.8 % (40.0-76.0); PLATELET 414 x1000/uL (130-400); RED BLOOD CELL COUNT 3.88 mill/uL (4.2-5.4); RED CELL DISTRIBUTION WIDTH 18.3 % (11.6-14.6)
[2017-12-25 16:43] LABS: CHLORIDE 102 mEq/L (98-107)
[2018-03-22] MEDS ORDERED: TRAZ-213 PO (13:57)
[2018-03-22] MEDS ORDERED: FOLI-43 PO (13:57)
[2018-03-22] MEDS ORDERED: THIA100T72 PO (13:57)
[2018-03-22] MEDS ORDERED: LORA-250 PO (13:57)
[2018-03-22] MEDS ORDERED: PROM-177 PO (13:57)
[2018-03-22] MEDS ORDERED: OMEP20CA10 PO (13:57)
[2018-04-16] MEDS ORDERED: MULT-1146 PO (08:48)
== END 2017-12-25 17:00 | disposition home or self-care (01) | DRG 241 ==
LOC: ER 07:53 → 5WST 09:56 → EDBEDREQTM 09:58 → EDBEDREQ 09:58 → ENRESERV 13:36
PROVIDERS: ADMIT Internal Medicine Nephrology; ATTEND Internal Medicine Nephrology
DX: K29.70 Gastritis, unspecified, without bleeding (principal); J43.9 Emphysema, unspecified; D50.9 Iron deficiency anemia, unspecified; F41.9 Anxiety disorder, unspecified; F17.200 Nicotine dependence, unspecified, uncomplicated; G89.29 Other chronic pain; R07.89 Other chest pain; K21.9 Gastro-esophageal reflux disease without esophagitis; Z76.5 Malingerer [conscious simulation]; Z88.8 Allergy status to other drugs, medicaments and biological substances; Z79.899 Other long term (current) drug therapy; Z72.89 Other problems related to lifestyle
CPT/HCPCS: 36415; 71045; 74018; 80048; 80305; 83735; 84100; 84484; 86850; 86900; 93005; 96374; 96375; 96376; 99285; J1170; J1650; J2060; J2270; J2405; J3490; Q0169

== ENCOUNTER 2018-01-07 11:21 | Emergency (ER) | payer MEDICAID ==
[~2018-01-07] VITALS: Ht 162.6 cm; Wt 61.0 kg
[~2018-01-07 11:21] MED LIST changes: +MAGN296S49 PO; +PROM6.25 PO; -PROM6.254 PO; +QUET300T2 PO; +TRAZ-132 PO; -TRAZ-213 PO
[2018-01-07 14:36] LABS: CLARITY URINE CLEAR (CLEAR); COLOR URINE YELLOW (YELLOW); KETONES URINE NEGATIVE (NEGATIVE); LEUKOCYTE ESTERASE URINE NEGATIVE (NEGATIVE); NITRITE URINE NEGATIVE (NEGATIVE); OCCULT BLOOD URINE NEGATIVE (NEGATIVE); PROTEIN URINE NEGATIVE (NEGATIVE); SPECIFIC GRAVITY URINE 1.034 (1.005-1.030); UROBILINOGEN URINE 0.2 E.U./dL (0.2-1.0)
[2018-01-07 14:42] LABS: BASOPHILS % 0.6 % (0.0-2.0); EOSINOPHILS % 1.5 % (0.0-5.0); HEMATOCRIT. 33.8 % (36.0-48.0); HEMOGLOBIN. 11.2 g/dL (12.0-16.0); LYMPHOCYTES % 40.2 % (20.0-50.0); MEAN CORPUSCULAR HEMOGLOBIN 27.6 pg (28.0-32.0); MEAN CORPUSCULAR VOLUME 83.2 fL (81.0-99.0); MEAN PLATELET VOLUME 6.5 fl (7.4-10.4); MONOCYTES % 7.8 % (2.0-8.0); NEUTROPHILS % 49.9 % (40.0-76.0); PLATELET 491 x1000/uL (130-400); RED BLOOD CELL COUNT 4.06 mill/uL (4.2-5.4); RED CELL DISTRIBUTION WIDTH 18.1 % (11.6-14.6)
[2018-01-07 14:44] LABS: CHLORIDE 109 mEq/L (98-107)
[2018-01-07] MEDS ORDERED: ONDANSETRON HCL 4MG/2ML VIAL IV ONE (14:45)
[2018-01-07] MEDS ORDERED: SODIUM CHLORIDE 0.9% 1,000 ML IV ONE (14:45)
[2018-01-07] MEDS ORDERED: HYDROCODONE/ACETAMINOPHEN 5/325MG TABLET PO ONE (14:45)
[2018-01-07] MEDS ORDERED: MORPHINE SULFATE 2 MG/ML CPJ (NOT FOR IM USE) IV ONE (15:00)
[2018-01-07 15:15] LABS: HCG SCREEN NEGATIVE
[2018-01-07] MEDS ORDERED: MORPHINE SULFATE 4 MG/ML CPJ (NOT FOR IM USE) IV ONE (15:15)
[2018-01-07] MEDS ORDERED: IOHEXOL-300 100 ML BOTTLE ONE (15:52)
[2018-01-07 17:26] VITALS: BP 108/66
== END 2018-01-07 18:24 | disposition home or self-care (01) ==
LOC: ER 12:15
DX: R10.84 Generalized abdominal pain (principal); D50.9 Iron deficiency anemia, unspecified; G89.29 Other chronic pain; F17.200 Nicotine dependence, unspecified, uncomplicated; Z76.5 Malingerer [conscious simulation]; Z87.19 Personal history of other diseases of the digestive system; Z88.6 Allergy status to analgesic agent; Z98.890 Other specified postprocedural states
CPT/HCPCS: 36415; 71046; 74177; 80053; 81003; 83690; 84703; 85025; 87804; 96361; 96374; 96375; 99285; J2270; J2405; J7030; Q9967; Z7610

== ENCOUNTER 2018-01-24 17:32 | Emergency (ER) | payer MEDICAID ==
[~2018-01-24] VITALS: Ht 162.6 cm; Wt 60.0 kg
[2018-01-24 17:46] VITALS: BP 112/81
[2018-01-24 18:49] LABS: BASOPHILS % 0.9 % (0.0-2.0); EOSINOPHILS % 2.3 % (0.0-5.0); HEMATOCRIT. 37.8 % (36.0-48.0); HEMOGLOBIN. 12.6 g/dL (12.0-16.0); MEAN CORPUSCULAR HEMOGLOBIN 28.3 pg (28.0-32.0); MEAN CORPUSCULAR VOLUME 84.7 fL (81.0-99.0); MEAN PLATELET VOLUME 6.3 fl (7.4-10.4); MONOCYTES % 8.1 % (2.0-8.0); NEUTROPHILS % 43.7 % (40.0-76.0); PLATELET 575 x1000/uL (130-400); RED BLOOD CELL COUNT 4.46 mill/uL (4.2-5.4); RED CELL DISTRIBUTION WIDTH 18.8 % (11.6-14.6)
[2018-01-24 18:53] LABS: CHLORIDE 108 mEq/L (98-107)
[2018-01-24 18:56] LABS: PROTHROMBIN TIME 10.2 sec (9.4-11.6)
== END 2018-01-24 23:00 | disposition left against medical advice (07) ==
LOC: ER 18:29
DX: F17.200 Nicotine dependence, unspecified, uncomplicated (principal); Z98.890 Other specified postprocedural states; Z88.6 Allergy status to analgesic agent
CPT/HCPCS: 36415; 80053; 83690; 85025; 85610; 99284

== ENCOUNTER 2018-03-18 14:27 | Emergency (ER) | payer MEDICAID ==
[~2018-03-18] VITALS: Ht 162.6 cm; Wt 62.0 kg
[2018-03-18] MEDS ORDERED: KETOROLAC 30MG/ML VIAL IV STA (14:43)
[2018-03-18] MEDS ORDERED: SODIUM CHLORIDE 0.9% 1,000 ML IV ONE (14:43)
[2018-03-18] MEDS ORDERED: ONDANSETRON HCL 4MG/2ML VIAL IV STA (14:43)
[2018-03-18 14:56] LABS: BASOPHILS % 0.4 % (0.0-2.0); EOSINOPHILS % 0.5 % (0.0-5.0); HEMATOCRIT. 38.4 % (36.0-48.0); HEMOGLOBIN. 12.6 g/dL (12.0-16.0); LYMPHOCYTES % 12.5 % (20.0-50.0); MEAN CORPUSCULAR HEMOGLOBIN 28.3 pg (28.0-32.0); NEUTROPHILS % 82.6 % (40.0-76.0); PLATELET 578 x1000/uL (130-400); RED BLOOD CELL COUNT 4.46 mill/uL (4.2-5.4); RED CELL DISTRIBUTION WIDTH 17.8 % (11.6-14.6)
[2018-03-18 15:01] LABS: CHLORIDE 105 mEq/L (98-107)
[2018-03-18 19:11] LABS: CLARITY URINE CLEAR (CLEAR); COLOR URINE YELLOW (YELLOW); KETONES URINE TRACE (NEGATIVE); LEUKOCYTE ESTERASE URINE NEGATIVE (NEGATIVE); NITRITE URINE NEGATIVE (NEGATIVE); OCCULT BLOOD URINE NEGATIVE (NEGATIVE); PH URINE 5.5 (4.5-8.0); PROTEIN URINE NEGATIVE (NEGATIVE); SPECIFIC GRAVITY URINE 1.036 (1.005-1.030); UROBILINOGEN URINE 0.2 E.U./dL (0.2-1.0)
[2018-03-18] MEDS ORDERED: ACETAMINOPHEN WITH CODEINE 300/30MG TABLET PO ONE (19:45)
[2018-03-18 20:32] VITALS: BP 120/75
[2018-03-22] MEDS ORDERED: THIA100T72 PO (13:57)
[2018-03-22] MEDS ORDERED: OMEP20CA10 PO (13:57)
[2018-03-22] MEDS ORDERED: FOLI-43 PO (13:57)
[2018-03-22] MEDS ORDERED: PROM-177 PO (13:57)
[2018-03-22] MEDS ORDERED: LORA-250 PO (13:57)
[2018-03-22] MEDS ORDERED: TRAZ-132 PO (13:57)
== END 2018-03-18 20:41 | disposition home or self-care (01) ==
LOC: ER 16:09
DX: R07.89 Other chest pain (principal); R10.13 Epigastric pain; R06.02 Shortness of breath; R11.2 Nausea with vomiting, unspecified; F17.210 Nicotine dependence, cigarettes, uncomplicated; J43.9 Emphysema, unspecified; Z86.59 Personal history of other mental and behavioral disorders; K21.9 Gastro-esophageal reflux disease without esophagitis; I51.7 Cardiomegaly; Z88.6 Allergy status to analgesic agent; Z98.890 Other specified postprocedural states
CPT/HCPCS: 36415; 71045; 74176; 80053; 81003; 83690; 84484; 85025; 93005; 96361; 96374; 96375; 99285; J1885; J2405; J7030

== ENCOUNTER 2018-05-07 14:30 | Emergency (ER) | payer MEDICAID ==
[~2018-05-07] VITALS: Ht 162.6 cm; Wt 64.0 kg
[~2018-05-07 14:30] MED LIST changes: +FOLI-43 PO; -HYDR-519 PO; -MAGN296S49 PO; +MULT-1146 PO; -ONDA4TAB51 PO; +THIA100T72 PO
[2018-05-07 15:18] LABS: BASOPHILS % 0.2 % (0.0-2.0); EOSINOPHILS % 1.4 % (0.0-5.0); HEMOGLOBIN. 12.3 g/dL (12.0-16.0); MEAN CORPUSCULAR HEMOGLOBIN 28.8 pg (28.0-32.0); MEAN CORPUSCULAR VOLUME 86.8 fL (81.0-99.0); MEAN PLATELET VOLUME 6.8 fl (7.4-10.4); NEUTROPHILS % 53.4 % (40.0-76.0); PLATELET 528 x1000/uL (130-400); RED BLOOD CELL COUNT 4.26 mill/uL (4.2-5.4); RED CELL DISTRIBUTION WIDTH 17.5 % (11.6-14.6)
[2018-05-07 15:20] LABS: CHLORIDE 111 mEq/L (98-107)
[2018-05-07 15:24] LABS: INR 1.1; PROTHROMBIN TIME 10.9 sec (9.4-11.6)
[2018-05-07] MEDS ORDERED: ONDANSETRON HCL 4MG/2ML VIAL IV ONE (17:30)
[2018-05-07] MEDS ORDERED: FAMOTIDINE 20MG/2ML VIAL IV ONE (17:30)
[2018-05-07 17:43] LABS: CLARITY URINE CLEAR (CLEAR); COLOR URINE YELLOW (YELLOW); KETONES URINE TRACE (NEGATIVE); LEUKOCYTE ESTERASE URINE NEGATIVE (NEGATIVE); NITRITE URINE NEGATIVE (NEGATIVE); OCCULT BLOOD URINE NEGATIVE (NEGATIVE); PROTEIN URINE TRACE (NEGATIVE); SPECIFIC GRAVITY URINE 1.046 (1.005-1.030)
[2018-05-07 17:54] LABS: *AMPHETAMINES SCREEN URINE NEGATIVE (NEGATIVE); *BARBITURATES SCREEN URINE NEGATIVE (NEGATIVE)
[2018-05-07 17:55] LABS: *BENZODIAZEPINES SCREEN URINE NEGATIVE (NEGATIVE); *COCAINE SCREEN URINE NEGATIVE (NEGATIVE); METHADONE URINE SCREEN NEGATIVE (NEGATIVE); OPIATES URINE SCREEN NEGATIVE (NEGATIVE); PHENCYCLIDINE URINE SCREEN NEGATIVE (NEGATIVE)
[2018-05-07 17:56] LABS: CANNABINOID URINE SCREEN NEGATIVE (NEGATIVE)
[2018-05-07 18:42] VITALS: BP 124/80
== END 2018-05-07 18:43 | disposition home or self-care (01) ==
LOC: ER 15:00
DX: R10.13 Epigastric pain (principal); R07.89 Other chest pain; R11.2 Nausea with vomiting, unspecified; N28.89 Other specified disorders of kidney and ureter; Z87.19 Personal history of other diseases of the digestive system
CPT/HCPCS: 36415; 71045; 80053; 80305; 81003; 83690; 84484; 85025; 85610; 85730; 93005; 96374; 96375; 99285; G0482; J2405; J3490

== ENCOUNTER 2018-06-30 06:41 | Emergency (ER) | payer MEDICAID ==
[~2018-06-30] VITALS: Ht 162.6 cm; Wt 64.0 kg
[~2018-06-30 06:41] MED LIST changes: -PROM6.25 PO; +PROM6.254 PO; -TRAZ-132 PO; +TRAZ-213 PO
[2018-06-30] MEDS ORDERED: SODIUM CHLORIDE 0.9% 1,000 ML IV ONE (08:51)
[2018-06-30] MEDS ORDERED: TRAMADOL 50MG TABLET PO ONE (09:00)
[2018-06-30] MEDS ORDERED: MORPHINE SULFATE 4 MG/ML CPJ (NOT FOR IM USE) IV STA (09:39)
[2018-06-30] MEDS ORDERED: CYCLOBENZAPRINE 10MG TABLET PO ONE (09:45)
[2018-06-30 09:56] LABS: BASOPHILS % 0.3 % (0.0-2.0); EOSINOPHILS % 1.5 % (0.0-5.0); HEMATOCRIT. 39.1 % (36.0-48.0); HEMOGLOBIN. 12.8 g/dL (12.0-16.0); LYMPHOCYTES % 26.4 % (20.0-50.0); MEAN CORPUSCULAR HEMOGLOBIN 29.2 pg (28.0-32.0); MEAN PLATELET VOLUME 7.4 fl (7.4-10.4); MONOCYTES % 6.2 % (2.0-8.0); NEUTROPHILS % 65.6 % (40.0-76.0); PLATELET 377 x1000/uL (130-400); RED BLOOD CELL COUNT 4.39 mill/uL (4.2-5.4); RED CELL DISTRIBUTION WIDTH 17.7 % (11.6-14.6)
[2018-06-30 10:01] LABS: CHLORIDE 109 mEq/L (98-107)
[2018-06-30] MEDS ORDERED: IOHEXOL-300 100 ML BOTTLE ONE (11:55)
[2018-06-30 13:30] VITALS: BP 124/90
== END 2018-06-30 13:40 | disposition home or self-care (01) ==
LOC: ER 06:41
DX: S09.8XXA Other specified injuries of head, initial encounter (principal); M54.5 Low back pain; M54.2 Cervicalgia; R07.89 Other chest pain; R10.2 Pelvic and perineal pain; M47.897 Other spondylosis, lumbosacral region; F17.200 Nicotine dependence, unspecified, uncomplicated; Z88.6 Allergy status to analgesic agent; V43.52XA Car driver injured in collision with other type car in traffic accident, initial encounter; Y93.89 Activity, other specified; Y92.488 Other paved roadways as the place of occurrence of the external cause
CPT/HCPCS: 36415; 70450; 71045; 72100; 72125; 74177; 80053; 85025; 96374; 99285; J2270; J7030; Q9967

== ENCOUNTER 2018-08-03 18:53 | Inpatient (IN) | payer MEDICAID ==
[~2018-08-03] VITALS: Ht 162.6 cm; Wt 63.5 kg
[2018-08-03] MEDS ORDERED: METHYLPREDNISOLONE SOD SUCC 125 MG/2 ML VIAL IV STA (19:38)
[2018-08-03] MEDS ORDERED: MORPHINE SULFATE 4 MG/ML CPJ (NOT FOR IM USE) IV STA (19:38)
[2018-08-03] MEDS ORDERED: FAMOTIDINE 20MG/2ML VIAL IV STA (19:38)
[2018-08-03] MEDS ORDERED: SODIUM CHLORIDE 0.9% 1,000 ML IV ONE (19:38)
[2018-08-03] MEDS ORDERED: MAGNESIUM/ALUMINUM HYDROXIDE/SIMETHICONE 30ML UDC PO STA (19:38)
[2018-08-03] MEDS ORDERED: ONDANSETRON HCL 4MG/2ML INJ IV STA (19:38)
[2018-08-03] MEDS ORDERED: LEVOFLOXACIN 500MG PREMIX 100 ML IV ONE (19:45)
[2018-08-03] MEDS ORDERED: IPRATROPIUM/ALBUTEROL 0.5-3(2.5)MG/3ML NEB HHN ONE (19:45)
[2018-08-03 20:02] LABS: CLARITY URINE CLEAR (CLEAR); COLOR URINE YELLOW (YELLOW); KETONES URINE TRACE (NEGATIVE); LEUKOCYTE ESTERASE URINE TRACE (NEGATIVE); NITRITE URINE NEGATIVE (NEGATIVE); OCCULT BLOOD URINE NEGATIVE (NEGATIVE); PROTEIN URINE NEGATIVE (NEGATIVE); SPECIFIC GRAVITY URINE 1.028 (1.005-1.030); UROBILINOGEN URINE 0.2 E.U./dL (0.2-1.0)
[2018-08-03 20:32] LABS: *AMPHETAMINES SCREEN URINE NEGATIVE (NEGATIVE); *BARBITURATES SCREEN URINE NEGATIVE (NEGATIVE); *BENZODIAZEPINES SCREEN URINE NEGATIVE (NEGATIVE); *COCAINE SCREEN URINE NEGATIVE (NEGATIVE); METHADONE URINE SCREEN NEGATIVE (NEGATIVE)
[2018-08-03 20:33] LABS: CANNABINOID URINE SCREEN PRESUMTIVE POSITIVE (NEGATIVE); OPIATES URINE SCREEN NEGATIVE (NEGATIVE); PHENCYCLIDINE URINE SCREEN NEGATIVE (NEGATIVE)
[2018-08-03 20:33] LABS: BG BASE EXCESS -1.7 mmol/L (-2.0-2.0); BG CARBOXYHEMOGLOBIN 3.2 % (0.5-1.5); BG DEOXYHEMOGLOBIN 5.1 % (0.0-5.0); BG FRACTION INSPIRED OXYGEN 21; BG HCO3 ACT 22.2 mmol/L (22.0-26.0); BG METHEMOGLOBIN 0.3 % (0.0-1.5); BG OXYGEN SATURATION 94.7 % (92.0-98.5); BG OXYHEMOGLOBIN 91.4 % (94.0-97.0); BG PO2 79.5 mmHg (75.0-100.0); BG SAMPLE SITE LEFT BRACHIAL; BG TOTAL HEMOGLOBIN 13.1 g/dL (12.0-18.0); BG VENT MODE ROOM AIR
[2018-08-03 20:36] LABS: BASOPHILS % 0.9 % (0.0-2.0); CHLORIDE 106 mEq/L (98-107); EOSINOPHILS % 1.8 % (0.0-5.0); HEMATOCRIT. 40.1 % (36.0-48.0); HEMOGLOBIN. 13.4 g/dL (12.0-16.0); LYMPHOCYTES % 46.6 % (20.0-50.0); MEAN CORPUSCULAR HEMOGLOBIN 29.8 pg (28.0-32.0); MEAN CORPUSCULAR VOLUME 89.2 fL (81.0-99.0); MEAN PLATELET VOLUME 6.9 fl (7.4-10.4); MONOCYTES % 6.6 % (2.0-8.0); NEUTROPHILS % 44.1 % (40.0-76.0); PLATELET 366 x1000/uL (130-400); RED CELL DISTRIBUTION WIDTH 17.4 % (11.6-14.6)
[2018-08-03 20:44] LABS: D-DIMER < 0.19 mg/L FEU (<0.50); ETHANOL BLOOD < 10 mg/dL; PROTHROMBIN TIME 10.2 sec (9.1-11.1)
[2018-08-03 20:52] LABS: HCG SCREEN NEGATIVE
[2018-08-03] MEDS ORDERED: MORPHINE SULFATE 4 MG/ML CPJ (NOT FOR IM USE) IV ONE (23:15)
[2018-08-03] MEDS ORDERED: ONDANSETRON HCL 4MG/2ML INJ IV ONE (23:15)
[2018-08-04] MEDS ORDERED: IPRATROPIUM/ALBUTEROL 0.5-3(2.5)MG/3ML NEB INH PRN (00:30)
[2018-08-04] MEDS ORDERED: ACETAMINOPHEN 325MG TABLET PO PRN ×2 (00:30→16:15)
[2018-08-04] MEDS ORDERED: ACETAMINOPHEN 650MG SUPP PR PRN (00:30)
[2018-08-04] MEDS ORDERED: DOCUSATE SODIUM 100MG CAPSULE PO PRN (00:30)
[2018-08-04] MEDS ORDERED: ACETAMINOPHEN 650MG/20.3ML UDC GT PRN (00:30)
[2018-08-04] MEDS ORDERED: CLONIDINE 0.1MG TABLET PO PRN (00:30)
[2018-08-04] MEDS ORDERED: MAGNESIUM/ALUMINUM HYDROXIDE/SIMETHICONE 30ML UDC PO PRN (00:30)
[2018-08-04] MEDS ORDERED: HYDROCODONE/ACETAMINOPHEN 10/325MG TABLET PO PRN (00:30)
[2018-08-04] MEDS ORDERED: NA PHOS,M-B/NA PHOS,DI-BA ENEMA 118ML PR PRN (00:30)
[2018-08-04] MEDS ORDERED: HYDROCODONE/ACETAMINOPHEN 5/325MG TABLET PO PRN (00:30)
[2018-08-04] MEDS ORDERED: ONDANSETRON HCL 4MG/2ML INJ IV PRN (00:30)
[2018-08-04] MEDS: IPRATROPIUM/ALBUTEROL 0.5-3(2.5)MG/3ML NEB INH SCH ×4 (02:59→20:38)
[2018-08-04 04:00] VITALS: BP 105/59
[2018-08-04 04:37] VITALS: BP 105/69
[2018-08-04] MEDS: GUAIFENESIN 200MG/10ML SUGAR FREE UDC PO PRN ×2 (05:12→09:49)
[2018-08-04] MEDS ORDERED: METHYLPREDNISOLONE SOD SUCC 125 MG/2 ML VIAL IV SCH (06:00)
[2018-08-04] MEDS: SODIUM CHLORIDE 0.9% INJ 3ML FLUSH IVF SCH ×3 (06:48→21:35)
[2018-08-04] MEDS: DIPHENHYDRAMINE 50MG/ML VIAL IV PRN ×3 (07:57→18:57)
[2018-08-04 08:00] VITALS: BP 130/87
[2018-08-04] MEDS ORDERED: MEDICATION NOT ON FORMULARY EA (Carisoprodol 350 MG) PO SCH (09:15)
[2018-08-04] MEDS ORDERED: THIAMINE MONONITRATE 100 MG PO SCH (09:15)
[2018-08-04] MEDS ORDERED: MEDICATION NOT ON FORMULARY EA (Trazodone Hcl 100 MG) PO PRN (09:15)
[2018-08-04] MEDS ORDERED: LORAZEPAM 1 MG PO PRN (09:15)
[2018-08-04] MEDS: FOLIC ACID 1MG TABLET PO SCH (09:49)
[2018-08-04] MEDS: THIAMINE HCL 100MG TABLET PO SCH (09:49)
[2018-08-04] MEDS: SODIUM CHLORIDE 0.9% 1,000 ML IV SCH ×2 (09:51→20:43)
[2018-08-04] MEDS: HYDROCODONE/ACETAMINOPHEN 10/325MG TABLET PO PRN ×4 (09:51→22:50)
[2018-08-04] MEDS: LORAZEPAM 1MG TABLET PO PRN ×2 (11:29→20:20)
[2018-08-04 12:00] VITALS: BP 116/70
[2018-08-04] MEDS ORDERED: CARISOPRODOL 350 MG TABLET PO NR (12:15)
[2018-08-04] MEDS: PANTOPRAZOLE SODIUM 40 MG/VIAL IV SCH (13:30)
[2018-08-04] MEDS ORDERED: ACETAMINOPHEN 650MG/20.3ML UDC PO PRN (16:15)
[2018-08-04] MEDS ORDERED: POTASSIUM CHLORIDE 20MEQ TABLET SR PO ONE (16:15)
[2018-08-04 16:57] LABS: HEMOGLOBIN 12.1 g/dL (12.0-16.0); MEAN CORPUSCULAR HEMOGLOBIN 30.2 pg (28.0-32.0); MEAN CORPUSCULAR VOLUME 89.8 fL (81.0-99.0); PLATELET 349 x1000/uL (130-400); RED BLOOD CELL COUNT 4.01 mill/uL (4.2-5.4); RED CELL DISTRIBUTION WIDTH 17.3 % (11.6-14.6)
[2018-08-04 16:59] LABS: CHLORIDE 105 mEq/L (98-107)
[2018-08-04] MEDS ORDERED: MEDICATION NOT ON FORMULARY EA (Quetiapine Fumarate (Seroquel) 1 TAB) PO SCH (17:00)
[2018-08-04] MEDS ORDERED: MAGNESIUM CITRATE 300ML SOLUTION PO NR (17:30)
[2018-08-04] MEDS: METOCLOPRAMIDE HCL 10MG/2ML VIAL IV SCH (18:04)
[2018-08-04 20:00] VITALS: BP 112/72
[2018-08-04] MEDS ORDERED: METHYLPREDNISOLONE SOD SUCC 40 MG/ML VIAL IV SCH (21:00)
[2018-08-04] MEDS ORDERED: TRAZODONE HCL 100MG TABLET PO PRN (21:00)
[2018-08-04] MEDS ORDERED: QUETIAPINE FUMARATE 100MG TABLET PO SCH (21:00)
[2018-08-04] MEDS: METHYLPREDNISOLONE SOD SUCC 40 MG/ML VIAL IV SCH (21:34)
[2018-08-05] VITALS: BP 110/74
[2018-08-05] MEDS: DIPHENHYDRAMINE 50MG/ML VIAL IV PRN ×3 (00:46→13:24)
[2018-08-05] MEDS: METOCLOPRAMIDE HCL 10MG/2ML VIAL IV SCH ×4 (00:46→17:37)
[2018-08-05 04:00] VITALS: BP 109/65
[2018-08-05] MEDS: HYDROCODONE/ACETAMINOPHEN 10/325MG TABLET PO PRN ×3 (04:11→16:25)
[2018-08-05] MEDS: SODIUM CHLORIDE 0.9% INJ 3ML FLUSH IVF SCH ×2 (06:13→13:24)
[2018-08-05] MEDS: METHYLPREDNISOLONE SOD SUCC 40 MG/ML VIAL IV SCH (06:13)
[2018-08-05 07:42] LABS: BASOPHILS % 0.2 % (0.0-2.0); HEMATOCRIT. 34.8 % (36.0-48.0); HEMOGLOBIN. 11.6 g/dL (12.0-16.0); MEAN CORPUSCULAR VOLUME 89.9 fL (81.0-99.0); MEAN PLATELET VOLUME 7.3 fl (7.4-10.4); MONOCYTES % 3.5 % (2.0-8.0); NEUTROPHILS % 86.3 % (40.0-76.0); PLATELET 330 x1000/uL (130-400); RED BLOOD CELL COUNT 3.87 mill/uL (4.2-5.4); RED CELL DISTRIBUTION WIDTH 16.8 % (11.6-14.6)
[2018-08-05 07:47] LABS: CHLORIDE 105 mEq/L (98-107)
[2018-08-05 07:56] LABS: LDL CHOLESTEROL 82 mg/dL (5-100)
[2018-08-05 07:58] LABS: HDL CHOLESTEROL 80 mg/dL (40-59)
[2018-08-05 08:00] VITALS: BP 101/60
[2018-08-05] MEDS: FOLIC ACID 1MG TABLET PO SCH (08:00)
[2018-08-05] MEDS: IPRATROPIUM/ALBUTEROL 0.5-3(2.5)MG/3ML NEB INH SCH ×2 (08:00→14:25)
[2018-08-05] MEDS: THIAMINE HCL 100MG TABLET PO SCH (08:00)
[2018-08-05] MEDS: PANTOPRAZOLE SODIUM 40 MG/VIAL IV SCH (08:01)
[2018-08-05] MEDS ORDERED: MEDICATION NOT ON FORMULARY EA (Folic Acid 1 MG) PO SCH (09:00)
[2018-08-05] MEDS ORDERED: MAGNESIUM CITRATE 300ML SOLUTION PO SCH (10:30)
[2018-08-05] MEDS: SODIUM CHLORIDE 0.9% 1,000 ML IV SCH (10:45)
[2018-08-05 12:00] VITALS: BP 112/69
[2018-08-05] MEDS: LORAZEPAM 1MG TABLET PO PRN (12:10)
[2018-08-05] MEDS ORDERED: PREDNISONE 20MG TABLET PO SCH (13:15)
[2018-08-05] MEDS ORDERED: AZITHROMYCIN 500 MG TABLET PO SCH (13:15)
[2018-08-05] MEDS ORDERED: LACTULOSE 20G/30ML UDC PO NR (15:45)
[2018-08-05 16:25] VITALS: BP 117/72
[2018-08-05] MEDS ORDERED: DIPHENHYDRAMINE 25MG CAPSULE PO PRN (17:15)
[2018-08-05] MEDS ORDERED: HYDROCODONE/ACETAMINOPHEN 10/325MG TABLET PO PRN (17:30)
[2018-08-05] MEDS: MAGNESIUM CITRATE 300ML SOLUTION PO NR ×2 (17:37→17:44)
== END 2018-08-05 17:55 | disposition left against medical advice (07) | DRG 140 ==
LOC: ER 18:53 → 5WST 08-04 00:03 → EDBEDREQTM 08-04 00:07 → EDBEDREQ 08-04 00:07 → ENRESERV 08-04 02:31
PROVIDERS: ADMIT Family Medicine; ATTEND Family Medicine
DX: J44.1 Chronic obstructive pulmonary disease with (acute) exacerbation (principal); F12.90 Cannabis use, unspecified, uncomplicated; F17.210 Nicotine dependence, cigarettes, uncomplicated; F32.9 Major depressive disorder, single episode, unspecified; F41.9 Anxiety disorder, unspecified; G89.29 Other chronic pain; I10 Essential (primary) hypertension; K21.9 Gastro-esophageal reflux disease without esophagitis; Z82.49 Family history of ischemic heart disease and other diseases of the circulatory system; Z88.6 Allergy status to analgesic agent; Z90.49 Acquired absence of other specified parts of digestive tract; Z93.3 Colostomy status; Z87.11 Personal history of peptic ulcer disease; K29.70 Gastritis, unspecified, without bleeding; K59.00 Constipation, unspecified
CPT/HCPCS: 36415; 36600; 71045; 74018; 74176; 80061; 80305; 82375; 82805; 83880; 84484; 84703; 85027; 85379; 93005; 94640; 96374; 96375; 99285; C9113; G0482; J1200; J1956; J2270; J2405; J2765; J2920; J2930; J3490; J7030; J7512; J7620

== ENCOUNTER 2018-09-25 18:50 | Emergency (ER) | payer MEDICAID ==
[~2018-09-25] VITALS: Ht 162.6 cm; Wt 67.0 kg
[2018-09-25 19:09] VITALS: BP 125/64
== END 2018-09-25 22:00 | disposition left against medical advice (07) ==
LOC: ER 18:50
DX: Z53.21 Procedure and treatment not carried out due to patient leaving prior to being seen by health care provider (principal)

== ENCOUNTER 2018-11-09 15:23 | Emergency (ER) | payer MEDICAID ==
[~2018-11-09] VITALS: Ht 162.6 cm; Wt 64.0 kg
[2018-11-09] MEDS ORDERED: ONDANSETRON HCL 4MG/2ML INJ IV STA (17:39)
[2018-11-09] MEDS ORDERED: MORPHINE SULFATE 4 MG/ML CPJ (NOT FOR IM USE) IV STA (17:39)
[2018-11-09] MEDS ORDERED: SODIUM CHLORIDE 0.9% 1,000 ML IV ONE (17:39)
[2018-11-09 18:09] LABS: BASOPHILS % 0.5 % (0.0-2.0); CHLORIDE 106 mEq/L (98-107); EOSINOPHILS % 0.9 % (0.0-5.0); HEMATOCRIT. 39.9 % (36.0-48.0); LYMPHOCYTES % 35.2 % (20.0-50.0); MEAN CORPUSCULAR HEMOGLOBIN 30.2 pg (28.0-32.0); MEAN CORPUSCULAR VOLUME 92.3 fL (81.0-99.0); MEAN PLATELET VOLUME 7.2 fl (7.4-10.4); MONOCYTES % 4.7 % (2.0-8.0); NEUTROPHILS % 58.7 % (40.0-76.0); PLATELET 459 x1000/uL (130-400); RED BLOOD CELL COUNT 4.32 mill/uL (4.2-5.4)
[2018-11-09 18:11] LABS: PROTHROMBIN TIME 10.3 sec (9.1-11.1)
[2018-11-09] MEDS ORDERED: HYDROCODONE/ACETAMINOPHEN 5/325MG TABLET PO ONE (20:00)
[2018-11-09] MEDS ORDERED: FAMOTIDINE 20MG/2ML VIAL IV ONE (20:00)
[2018-11-09 20:36] LABS: CLARITY URINE CLEAR (CLEAR); COLOR URINE YELLOW (YELLOW); KETONES URINE TRACE (NEGATIVE); LEUKOCYTE ESTERASE URINE NEGATIVE (NEGATIVE); NITRITE URINE NEGATIVE (NEGATIVE); OCCULT BLOOD URINE NEGATIVE (NEGATIVE); PH URINE 6.5 (4.5-8.0); PROTEIN URINE NEGATIVE (NEGATIVE); SPECIFIC GRAVITY URINE 1.019 (1.005-1.030); UROBILINOGEN URINE 0.2 E.U./dL (0.2-1.0)
[2018-11-09 21:06] VITALS: BP 119/68
== END 2018-11-09 21:29 | disposition home or self-care (01) ==
LOC: ER 15:23 → CANBEDREQ 23:42
DX: R10.84 Generalized abdominal pain (principal); K59.00 Constipation, unspecified; F41.9 Anxiety disorder, unspecified; F32.9 Major depressive disorder, single episode, unspecified; K21.9 Gastro-esophageal reflux disease without esophagitis; R06.02 Shortness of breath; R07.89 Other chest pain; Z93.3 Colostomy status; Z98.890 Other specified postprocedural states; Z79.899 Other long term (current) drug therapy; Z88.6 Allergy status to analgesic agent
CPT/HCPCS: 36415; 71045; 74176; 80053; 81003; 81025; 83605; 84484; 85025; 85610; 93005; 96374; 96375; 99284; J2270; J2405; J3490; J7030

== ENCOUNTER 2019-03-03 15:30 | Inpatient (IN) | payer MEDICAID ==
[~2019-03-03] VITALS: Ht 162.6 cm; Wt 64.0 kg
[2019-03-03 18:18] LABS: EOSINOPHILS % 1.3 % (0.0-5.0); HEMATOCRIT. 40.8 % (36.0-48.0); HEMOGLOBIN. 13.4 g/dL (12.0-16.0); LYMPHOCYTES % 34.6 % (20.0-50.0); MEAN CORPUSCULAR HEMOGLOBIN 29.9 pg (28.0-32.0); MEAN CORPUSCULAR VOLUME 90.9 fL (81.0-99.0); MEAN PLATELET VOLUME 6.9 fl (7.4-10.4); MONOCYTES % 6.9 % (2.0-8.0); NEUTROPHILS % 56.2 % (40.0-76.0); PLATELET 398 x1000/uL (130-400); RED BLOOD CELL COUNT 4.49 mill/uL (4.2-5.4); RED CELL DISTRIBUTION WIDTH 16.3 % (11.6-14.6)
[2019-03-03 18:26] LABS: CHLORIDE 108 mEq/L (98-107)
[2019-03-03] MEDS ORDERED: ONDANSETRON HCL 4MG/2ML INJ IV STA (18:26)
[2019-03-03] MEDS ORDERED: MORPHINE SULFATE 4 MG/ML CPJ (NOT FOR IM USE) IV STA (18:26)
[2019-03-03] MEDS ORDERED: SODIUM CHLORIDE 0.9% 1,000 ML IV ONE (18:26)
[2019-03-03] MEDS ORDERED: FAMOTIDINE 20MG/2ML VIAL IV STA (18:26)
[2019-03-03 18:30] LABS: ETHANOL BLOOD < 10 mg/dL
[2019-03-03 18:50] LABS: PARTIAL THROMBOPLASTIN TIME 31.1 sec (23.4-31.0); PROTHROMBIN TIME 10.1 sec (9.6-11.0)
[2019-03-03] MEDS ORDERED: HYDROCODONE/ACETAMINOPHEN 5/325MG TABLET PO ONE (21:00)
[2019-03-03] MEDS ORDERED: ASPIRIN 81MG TABLET PO ONE (21:15)
[2019-03-03] MEDS ORDERED: NITROGLYCERIN OINT 1GM/INCH UDPKT TD ONE (21:15)
[2019-03-03] MEDS ORDERED: IPRATROPIUM/ALBUTEROL 0.5-3(2.5)MG/3ML NEB INH PRN (22:15)
[2019-03-03] MEDS ORDERED: CLONIDINE 0.1MG TABLET PO PRN (22:15)
[2019-03-03] MEDS ORDERED: ACETAMINOPHEN 325MG TABLET PO PRN (22:15)
[2019-03-03] MEDS ORDERED: HYDROCODONE/ACETAMINOPHEN 5/325MG TABLET PO PRN (22:15)
[2019-03-03] MEDS ORDERED: MAGNESIUM/ALUMINUM HYDROXIDE/SIMETHICONE 30ML UDC PO PRN (22:15)
[2019-03-03] MEDS ORDERED: DOCUSATE SODIUM 100MG CAPSULE PO PRN (22:15)
[2019-03-03 22:18] LABS: CHLORIDE 112 mEq/L (98-107)
[2019-03-03] MEDS: MORPHINE SULFATE 4 MG/ML CPJ (NOT FOR IM USE) IV PRN (23:07)
[2019-03-03] MEDS: ENOXAPARIN 40MG/0.4ML SYR SUBCUT SCH (23:55)
[2019-03-04] MEDS: MORPHINE SULFATE 4 MG/ML CPJ (NOT FOR IM USE) IV PRN ×6 (04:08→20:41)
[2019-03-04 05:01] LABS: BASOPHILS % 0.5 % (0.0-2.0); EOSINOPHILS % 2.2 % (0.0-5.0); HEMATOCRIT. 35.1 % (36.0-48.0); HEMOGLOBIN. 11.5 g/dL (12.0-16.0); LYMPHOCYTES % 51.8 % (20.0-50.0); MEAN CORPUSCULAR HEMOGLOBIN 29.7 pg (28.0-32.0); MEAN CORPUSCULAR VOLUME 90.7 fL (81.0-99.0); MEAN PLATELET VOLUME 6.9 fl (7.4-10.4); MONOCYTES % 6.6 % (2.0-8.0); NEUTROPHILS % 38.9 % (40.0-76.0); PLATELET 356 x1000/uL (130-400); RED BLOOD CELL COUNT 3.87 mill/uL (4.2-5.4); RED CELL DISTRIBUTION WIDTH 16.2 % (11.6-14.6)
[2019-03-04 05:13] LABS: HDL CHOLESTEROL 58 mg/dL (40-59)
[2019-03-04 05:14] LABS: CREATINE KINASE 75 IU/L (26-192); LDL CHOLESTEROL 76 mg/dL (5-100)
[2019-03-04 05:15] LABS: CREATINE KINASE MB FRACTION < 1.0 ng/mL (0.5-3.6)
[2019-03-04] MEDS: ONDANSETRON HCL 4MG/2ML INJ IV PRN (08:27)
[2019-03-04] MEDS: ASPIRIN 81MG EC TABLET PO SCH (09:38)
[2019-03-04 11:58] VITALS: BP 107/64
[2019-03-04] MEDS ORDERED: CARISOPRODOL 350 MG TABLET PO PRN (15:15)
[2019-03-04] MEDS ORDERED: LORAZEPAM 1MG TABLET PO PRN (15:15)
[2019-03-04 15:43] LABS: CREATINE KINASE 85 IU/L (26-192)
[2019-03-04 15:45] LABS: CREATINE KINASE MB FRACTION < 1.0 ng/mL (0.5-3.6)
[2019-03-04] MEDS: OMEPRAZOLE 20MG CAPSULE EXTENDED RELEASE PO SCH (15:59)
[2019-03-04] MEDS: THIAMINE HCL 100MG TABLET PO SCH (15:59)
[2019-03-04 16:00] VITALS: BP 105/66
[2019-03-04 20:03] VITALS: BP 111/61
[2019-03-04] MEDS: TRAZODONE HCL 100MG TABLET PO SCH (20:44)
[2019-03-04] MEDS: QUETIAPINE FUMARATE 100MG TABLET PO SCH (20:44)
[2019-03-04] MEDS: ENOXAPARIN 40MG/0.4ML SYR SUBCUT SCH (20:45)
[2019-03-05] VITALS (8 sets, daily range): BP systolic 84–123; BP diastolic 50–67
[2019-03-05] MEDS: OMEPRAZOLE 20MG CAPSULE EXTENDED RELEASE PO SCH (06:28)
[2019-03-05] MEDS: MORPHINE SULFATE 4 MG/ML CPJ (NOT FOR IM USE) IV PRN ×3 (06:28→20:01)
[2019-03-05 07:07] LABS: BASOPHILS % 0.6 % (0.0-2.0); EOSINOPHILS % 2.1 % (0.0-5.0); HEMATOCRIT. 35.9 % (36.0-48.0); HEMOGLOBIN. 11.9 g/dL (12.0-16.0); LYMPHOCYTES % 50.2 % (20.0-50.0); MEAN CORPUSCULAR HEMOGLOBIN 30.1 pg (28.0-32.0); MEAN PLATELET VOLUME 7.2 fl (7.4-10.4); MONOCYTES % 6.7 % (2.0-8.0); NEUTROPHILS % 40.4 % (40.0-76.0); PLATELET 372 x1000/uL (130-400); RED BLOOD CELL COUNT 3.94 mill/uL (4.2-5.4)
[2019-03-05 07:08] LABS: CHLORIDE 107 mEq/L (98-107)
[2019-03-05] MEDS: ASPIRIN 81MG EC TABLET PO SCH (08:29)
[2019-03-05] MEDS: THIAMINE HCL 100MG TABLET PO SCH (08:30)
[2019-03-05] MEDS ORDERED: REGADENOSON 0.4 MG/5 ML IV SCH (14:30)
[2019-03-05] MEDS: ONDANSETRON HCL 4MG/2ML INJ IV PRN (19:53)
[2019-03-05] MEDS: TRAZODONE HCL 100MG TABLET PO SCH (21:10)
[2019-03-05] MEDS: QUETIAPINE FUMARATE 100MG TABLET PO SCH (21:10)
[2019-03-05] MEDS: ENOXAPARIN 40MG/0.4ML SYR SUBCUT SCH (21:10)
[2019-03-06 00:09] VITALS: BP 88/56
[2019-03-06] MEDS: ONDANSETRON HCL 4MG/2ML INJ IV PRN (01:44)
[2019-03-06] MEDS: MORPHINE SULFATE 4 MG/ML CPJ (NOT FOR IM USE) IV PRN ×3 (01:45→13:59)
[2019-03-06 04:00] VITALS: BP 123/71
[2019-03-06 07:01] LABS: CHLORIDE 108 mEq/L (98-107)
[2019-03-06 07:42] LABS: BASOPHILS % 0.5 % (0.0-2.0); EOSINOPHILS % 2.4 % (0.0-5.0); HEMATOCRIT. 34.6 % (36.0-48.0); HEMOGLOBIN. 11.1 g/dL (12.0-16.0); LYMPHOCYTES % 54.5 % (20.0-50.0); MEAN CORPUSCULAR HEMOGLOBIN 29.8 pg (28.0-32.0); NEUTROPHILS % 33.6 % (40.0-76.0); PLATELET 301 x1000/uL (130-400); RED BLOOD CELL COUNT 3.72 mill/uL (4.2-5.4); RED CELL DISTRIBUTION WIDTH 16.3 % (11.6-14.6)
[2019-03-06 08:00] VITALS: BP 102/63
[2019-03-06] MEDS ORDERED: REGADENOSON 0.4 MG/5 ML IV ONE (09:16)
[2019-03-06] MEDS: OMEPRAZOLE 20MG CAPSULE EXTENDED RELEASE PO SCH (10:56)
[2019-03-06] MEDS: ASPIRIN 81MG EC TABLET PO SCH (10:58)
[2019-03-06] MEDS: THIAMINE HCL 100MG TABLET PO SCH (10:58)
[2019-03-06 12:00] VITALS: BP 100/57
[2019-03-06 14:06] VITALS: BP 100/57
[2019-03-06 19:11] LABS: ANTI-NUCLEAR ANTIBODIES DIRECT Positive (Negative)
== END 2019-03-06 14:30 | disposition home or self-care (01) | DRG 203 ==
LOC: ER 15:30 → 6WST 21:13 → EDBEDREQTM 21:24 → EDBEDREQ 21:24 → ENRESERV 03-04 10:01
PROVIDERS: ADMIT Internal Medicine; ATTEND Internal Medicine
DX: M94.0 Chondrocostal junction syndrome [Tietze] (principal); E87.8 Other disorders of electrolyte and fluid balance, not elsewhere classified; I24.9 Acute ischemic heart disease, unspecified; F17.200 Nicotine dependence, unspecified, uncomplicated; F32.9 Major depressive disorder, single episode, unspecified; I10 Essential (primary) hypertension; K29.70 Gastritis, unspecified, without bleeding; F41.9 Anxiety disorder, unspecified; K27.9 Peptic ulcer, site unspecified, unspecified as acute or chronic, without hemorrhage or perforation; G89.29 Other chronic pain; H66.90 Otitis media, unspecified, unspecified ear; K21.9 Gastro-esophageal reflux disease without esophagitis; Z93.3 Colostomy status; Z88.8 Allergy status to other drugs, medicaments and biological substances; Z79.899 Other long term (current) drug therapy
CPT/HCPCS: 36415; 71045; 74176; 78452; 80048; 80061; 80320; 82550; 82553; 83735; 83880; 84443; 84484; 85651; 86038; 86431; 93005; 93017; 93970; 96374; 96375; 99285; A9500; J1650; J2270; J2405; J2785; J3490; J7030; G0480

== ENCOUNTER 2019-04-23 20:56 | Emergency (ER) | payer MEDICAID ==
[~2019-04-23] VITALS: Ht 162.6 cm; Wt 66.0 kg
[2019-04-23] MEDS ORDERED: LORAZEPAM 2MG/ML CPJ IM ONE (22:00)
[2019-04-23] MEDS ORDERED: HYDROCODONE/ACETAMINOPHEN 10/325MG TABLET PO ONE (22:00)
[2019-04-23 22:41] LABS: BASOPHILS % 1.1 % (0.0-2.0); EOSINOPHILS % 1.4 % (0.0-5.0); HEMATOCRIT. 37.6 % (36.0-48.0); HEMOGLOBIN. 12.8 g/dL (12.0-16.0); LYMPHOCYTES % 43.4 % (20.0-50.0); MEAN CORPUSCULAR HEMOGLOBIN 30.9 pg (28.0-32.0); MEAN CORPUSCULAR VOLUME 90.8 fL (81.0-99.0); MEAN PLATELET VOLUME 6.5 fl (7.4-10.4); MONOCYTES % 8.1 % (2.0-8.0); PLATELET 358 x1000/uL (130-400); RED BLOOD CELL COUNT 4.14 mill/uL (4.2-5.4); RED CELL DISTRIBUTION WIDTH 16.1 % (11.6-14.6)
[2019-04-23 22:45] LABS: CHLORIDE 109 mEq/L (98-107)
[2019-04-23 22:50] LABS: ETHANOL BLOOD < 10 mg/dL
[2019-04-23 22:55] LABS: CREATINE KINASE 116 IU/L (26-192)
[2019-04-23 22:57] LABS: CREATINE KINASE MB FRACTION < 1.0 ng/mL (0.5-3.6)
[2019-04-23 23:32] LABS: *AMPHETAMINES SCREEN URINE NEGATIVE (NEGATIVE); *BARBITURATES SCREEN URINE NEGATIVE (NEGATIVE); *BENZODIAZEPINES SCREEN URINE NEGATIVE (NEGATIVE); *COCAINE SCREEN URINE NEGATIVE (NEGATIVE)
[2019-04-23 23:33] LABS: CANNABINOID URINE SCREEN NEGATIVE (NEGATIVE); METHADONE URINE SCREEN NEGATIVE (NEGATIVE); OPIATES URINE SCREEN NEGATIVE (NEGATIVE); PHENCYCLIDINE URINE SCREEN NEGATIVE (NEGATIVE)
[2019-04-24 00:42] VITALS: BP 130/79
[2019-04-24] MEDS ORDERED: LORAZEPAM 2MG/ML CPJ IM ONE (00:45)
[2019-04-24] MEDS ORDERED: MORPHINE SULFATE 10 MG/ML CPJ IV ONE (00:45)
== END 2019-04-24 01:27 | disposition home or self-care (01) ==
LOC: ER 20:56
DX: M54.12 Radiculopathy, cervical region (principal); R07.89 Other chest pain; J44.9 Chronic obstructive pulmonary disease, unspecified; F41.9 Anxiety disorder, unspecified; F32.9 Major depressive disorder, single episode, unspecified; K21.9 Gastro-esophageal reflux disease without esophagitis; M79.7 Fibromyalgia; F17.210 Nicotine dependence, cigarettes, uncomplicated; Z98.890 Other specified postprocedural states; Z71.6 Tobacco abuse counseling; Z88.6 Allergy status to analgesic agent; Z93.3 Colostomy status
CPT/HCPCS: 36415; 71045; 72125; 80053; 80305; 80320; 82550; 82553; 83690; 83880; 84484; 85025; 93005; 96372; 96374; 99284; 99406; J2060; J2270; Z7610; G0480

== ENCOUNTER 2019-04-25 17:51 | Emergency (ER) | payer MEDICAID ==
[~2019-04-25] VITALS: Ht 162.6 cm; Wt 71.0 kg
[2019-04-25] MEDS ORDERED: ASPIRIN 325MG EC TABLET PO ONE (18:15)
[2019-04-25 18:49] LABS: BASOPHILS % 0.2 % (0.0-2.0); EOSINOPHILS % 1.2 % (0.0-5.0); HEMATOCRIT. 40.4 % (36.0-48.0); HEMOGLOBIN. 13.5 g/dL (12.0-16.0); LYMPHOCYTES % 33.7 % (20.0-50.0); MEAN CORPUSCULAR HEMOGLOBIN 30.7 pg (28.0-32.0); MEAN CORPUSCULAR VOLUME 91.5 fL (81.0-99.0); MEAN PLATELET VOLUME 6.8 fl (7.4-10.4); MONOCYTES % 5.4 % (2.0-8.0); NEUTROPHILS % 59.5 % (40.0-76.0); PLATELET 375 x1000/uL (130-400); RED BLOOD CELL COUNT 4.41 mill/uL (4.2-5.4); RED CELL DISTRIBUTION WIDTH 16.2 % (11.6-14.6)
[2019-04-25 18:50] LABS: CLARITY URINE CLEAR (CLEAR); COLOR URINE YELLOW (YELLOW); KETONES URINE NEGATIVE (NEGATIVE); LEUKOCYTE ESTERASE URINE NEGATIVE (NEGATIVE); NITRITE URINE NEGATIVE (NEGATIVE); OCCULT BLOOD URINE NEGATIVE (NEGATIVE); PH URINE 5.5 (4.5-8.0); PROTEIN URINE NEGATIVE (NEGATIVE); SPECIFIC GRAVITY URINE 1.029 (1.005-1.030); UROBILINOGEN URINE 0.2 E.U./dL (0.2-1.0)
[2019-04-25 18:56] LABS: CHLORIDE 107 mEq/L (98-107)
[2019-04-25] MEDS ORDERED: MORPHINE SULFATE 4 MG/ML CPJ (NOT FOR IM USE) IV STA (18:57)
[2019-04-25] MEDS ORDERED: ONDANSETRON HCL 4MG/2ML INJ IV STA (18:57)
[2019-04-25] MEDS ORDERED: METHYLPREDNISOLONE SOD SUCC 125 MG/2 ML VIAL IV STA (20:02)
[2019-04-25] MEDS ORDERED: ALBUTEROL (0.083%) 2.5MG/3ML NEB HHN STA (20:02)
[2019-04-25 21:00] VITALS: BP 123/80
== END 2019-04-25 21:30 | disposition home or self-care (01) ==
LOC: ER 17:51
DX: R07.89 Other chest pain (principal); R06.00 Dyspnea, unspecified; F41.9 Anxiety disorder, unspecified; K21.9 Gastro-esophageal reflux disease without esophagitis; J44.9 Chronic obstructive pulmonary disease, unspecified; F17.210 Nicotine dependence, cigarettes, uncomplicated; M79.7 Fibromyalgia; Z71.6 Tobacco abuse counseling; Z93.3 Colostomy status; Z90.49 Acquired absence of other specified parts of digestive tract; Z88.6 Allergy status to analgesic agent
CPT/HCPCS: 36415; 71045; 80053; 81003; 83690; 83880; 84484; 85025; 85379; 93005; 94640; 96374; 99284; 99406; J2270; J2405; J7611

== ENCOUNTER 2019-05-03 20:36 | Emergency (ER) | payer MEDICAID ==
[~2019-05-03] VITALS: Ht 162.6 cm; Wt 66.0 kg
[2019-05-03] MEDS ORDERED: HYDROCODONE/ACETAMINOPHEN 5/325MG TABLET PO ONE (22:15)
[2019-05-03] MEDS ORDERED: TRAMADOL 50MG TABLET PO ONE (22:15)
[2019-05-03 22:48] LABS: BASOPHILS % 0.1 % (0.0-2.0); HEMATOCRIT. 38.9 % (36.0-48.0); LYMPHOCYTES % 42.9 % (20.0-50.0); MEAN CORPUSCULAR HEMOGLOBIN 30.4 pg (28.0-32.0); MEAN CORPUSCULAR VOLUME 91.2 fL (81.0-99.0); MONOCYTES % 5.7 % (2.0-8.0); NEUTROPHILS % 50.3 % (40.0-76.0); PLATELET 407 x1000/uL (130-400); RED BLOOD CELL COUNT 4.26 mill/uL (4.2-5.4); RED CELL DISTRIBUTION WIDTH 16.2 % (11.6-14.6)
[2019-05-03 22:51] LABS: CHLORIDE 110 mEq/L (98-107)
[2019-05-04] MEDS ORDERED: MORPHINE SULFATE 4 MG/ML CPJ (NOT FOR IM USE) IV NR (00:15)
[2019-05-04] MEDS ORDERED: DIPHENHYDRAMINE 12.5MG/5ML UDC PO ONE (01:45)
[2019-05-04] MEDS ORDERED: VISCOUS LIDOCAINE 2% 15 ML UDC MM ONE (01:45)
[2019-05-04] MEDS ORDERED: MAGNESIUM/ALUMINUM HYDROXIDE/SIMETHICONE 30ML UDC PO ONE (01:45)
[2019-05-04 02:16] VITALS: BP 125/69
== END 2019-05-04 02:15 | disposition home or self-care (01) ==
LOC: ER 20:36
DX: G89.29 Other chronic pain (principal); M79.7 Fibromyalgia; R07.89 Other chest pain; J44.9 Chronic obstructive pulmonary disease, unspecified; F41.9 Anxiety disorder, unspecified; K21.9 Gastro-esophageal reflux disease without esophagitis; F17.210 Nicotine dependence, cigarettes, uncomplicated; Z87.11 Personal history of peptic ulcer disease; Z93.3 Colostomy status; Z88.6 Allergy status to analgesic agent; Z98.890 Other specified postprocedural states
CPT/HCPCS: 36415; 71045; 80053; 81025; 83880; 84484; 85025; 93005; 96374; 99284; J2270; Q0163

== ENCOUNTER 2019-08-08 16:23 | Inpatient (IN) | payer MEDICAID ==
[~2019-08-08] VITALS: Ht 162.6 cm; Wt 63.5 kg
[~2019-08-08 16:23] MED LIST changes: +B25 PO; -DIPH25CA6 PO; +NORCO PO; -OMEP40CA34 PO; +PROT40 PO
[2019-08-08] MEDS ORDERED: MORPHINE SULFATE 4 MG/ML CPJ (NOT FOR IM USE) IV STA (17:34)
[2019-08-08] MEDS ORDERED: SODIUM CHLORIDE 0.9% 1,000 ML IV ONE (17:34)
[2019-08-08] MEDS ORDERED: METHYLPREDNISOLONE SOD SUCC 125 MG/2 ML VIAL IV STA (17:34)
[2019-08-08] MEDS ORDERED: ONDANSETRON HCL 4MG/2ML INJ IV STA (17:34)
[2019-08-08] MEDS ORDERED: IPRATROPIUM/ALBUTEROL 0.5-3(2.5)MG/3ML NEB ONE (17:40)
[2019-08-08] MEDS ORDERED: LEVOFLOXACIN 750MG PREMIX 150 ML IV ONE (17:45)
[2019-08-08] MEDS ORDERED: MAGNESIUM/ALUMINUM HYDROXIDE/SIMETHICONE 30ML UDC PO ONE (17:45)
[2019-08-08] MEDS ORDERED: MAGNESIUM 2 G PREMIX 50 ML IV ONE (17:45)
[2019-08-08] MEDS ORDERED: FAMOTIDINE 20MG/2ML VIAL IV ONE (17:45)
[2019-08-08] MEDS ORDERED: IPRATROPIUM/ALBUTEROL 0.5-3(2.5)MG/3ML NEB HHN ONE (17:45)
[2019-08-08 17:59] LABS: BASOPHILS % 1.3 % (0.0-2.0); EOSINOPHILS % 0.7 % (0.0-5.0); HEMATOCRIT. 45.3 % (36.0-48.0); HEMOGLOBIN. 15.2 g/dL (12.0-16.0); LYMPHOCYTES % 29.8 % (20.0-50.0); MEAN CORPUSCULAR HEMOGLOBIN 30.6 pg (28.0-32.0); MEAN CORPUSCULAR VOLUME 91.1 fL (81.0-99.0); MEAN PLATELET VOLUME 7.2 fl (7.4-10.4); MONOCYTES % 6.1 % (2.0-8.0); NEUTROPHILS % 62.1 % (40.0-76.0); PLATELET 459 x1000/uL (130-400); RED BLOOD CELL COUNT 4.98 mill/uL (4.2-5.4); RED CELL DISTRIBUTION WIDTH 16.5 % (11.6-14.6)
[2019-08-08 18:04] LABS: CHLORIDE 103 mEq/L (98-107); PARTIAL THROMBOPLASTIN TIME 28.8 sec (23.4-31.0)
[2019-08-08 18:11] LABS: ETHANOL BLOOD < 10 mg/dL
[2019-08-08] MEDS ORDERED: MORPHINE SULFATE 4 MG/ML CPJ (NOT FOR IM USE) IV ONE (20:30)
[2019-08-08] MEDS ORDERED: ONDANSETRON HCL 4MG/2ML INJ IV ONE (20:30)
[2019-08-08 23:20] VITALS: BP 103/68
[2019-08-08 23:36] VITALS: BP 103/68
[2019-08-09] MEDS ORDERED: LEVOFLOXACIN 500MG PREMIX 100 ML IV SCH ×2 (00:15→18:00)
[2019-08-09] MEDS ORDERED: PROMETHAZINE/DEXTROMETHORPHAN 6.25-15MG/5ML BOTTLE 120ML PO PRN (00:15)
[2019-08-09] MEDS ORDERED: LORAZEPAM 2MG/ML CPJ IV PRN ×2 (00:15→00:30)
[2019-08-09] MEDS ORDERED: ONDANSETRON HCL 4MG/2ML INJ IV PRN ×2 (00:15→00:30)
[2019-08-09] MEDS ORDERED: KETOROLAC 30MG/ML VIAL IV PRN (00:30)
[2019-08-09] MEDS ORDERED: MAGNESIUM HYDROXIDE 400MG/5ML 30ML UDC PO PRN (00:30)
[2019-08-09] MEDS ORDERED: ACETAMINOPHEN 325MG TABLET PO PRN (00:30)
[2019-08-09] MEDS ORDERED: CLONIDINE 0.1MG TABLET PO PRN (00:30)
[2019-08-09] MEDS ORDERED: IPRATROPIUM/ALBUTEROL 0.5-3(2.5)MG/3ML NEB HHN PRN (00:30)
[2019-08-09] MEDS ORDERED: DIPHENHYDRAMINE 50MG/ML VIAL IV PRN (00:30)
[2019-08-09] MEDS ORDERED: HYDROCODONE/ACETAMINOPHEN 5/325MG TABLET PO PRN (00:30)
[2019-08-09] MEDS ORDERED: LORAZEPAM 0.5MG TABLET PO PRN (00:30)
[2019-08-09] MEDS ORDERED: TEMAZEPAM 15MG CAPSULE PO PRN (00:30)
[2019-08-09] MEDS: TRAZODONE HCL 50MG TABLET PO SCH ×2 (01:48→21:50)
[2019-08-09] MEDS: QUETIAPINE FUMARATE 50MG TABLET PO SCH ×2 (01:48→21:50)
[2019-08-09] MEDS: METHYLPREDNISOLONE SOD SUCC 40 MG/ML VIAL IV SCH ×3 (01:48→18:00)
[2019-08-09] MEDS: HYDROCODONE/ACETAMINOPHEN 10/325MG TABLET PO PRN ×3 (02:12→20:07)
[2019-08-09 02:39] LABS: CLARITY URINE CLEAR (CLEAR); COLOR URINE YELLOW (YELLOW); KETONES URINE NEGATIVE (NEGATIVE); LEUKOCYTE ESTERASE URINE NEGATIVE (NEGATIVE); NITRITE URINE NEGATIVE (NEGATIVE); OCCULT BLOOD URINE NEGATIVE (NEGATIVE); PH URINE 5.5 (4.5-8.0); PROTEIN URINE NEGATIVE (NEGATIVE); UROBILINOGEN URINE 0.2 E.U./dL (0.2-1.0)
[2019-08-09 03:15] LABS: *AMPHETAMINES SCREEN URINE NEGATIVE (NEGATIVE); *BARBITURATES SCREEN URINE NEGATIVE (NEGATIVE); *BENZODIAZEPINES SCREEN URINE NEGATIVE (NEGATIVE); *COCAINE SCREEN URINE NEGATIVE (NEGATIVE)
[2019-08-09 03:16] LABS: CANNABINOID URINE SCREEN NEGATIVE (NEGATIVE); METHADONE URINE SCREEN NEGATIVE (NEGATIVE); OPIATES URINE SCREEN PRESUMTIVE POSITIVE (NEGATIVE); PHENCYCLIDINE URINE SCREEN NEGATIVE (NEGATIVE)
[2019-08-09 04:00] VITALS: BP 102/60
[2019-08-09] MEDS ORDERED: IPRATROPIUM/ALBUTEROL 0.5-3(2.5)MG/3ML NEB HHN SCH (04:00)
[2019-08-09] MEDS ORDERED: METHYLPREDNISOLONE SOD SUCC 125 MG/2 ML VIAL IV SCH (06:00)
[2019-08-09] MEDS ORDERED: SODIUM CHLORIDE 0.9% INJ 3ML FLUSH IVF SCH (06:00)
[2019-08-09 08:00] VITALS: BP 101/66
[2019-08-09] MEDS ORDERED: FAMOTIDINE 20MG TABLET PO SCH (09:00)
[2019-08-09] MEDS: ENOXAPARIN 40MG/0.4ML SYR SUBCUT SCH (09:32)
[2019-08-09] MEDS: IPRATROPIUM/ALBUTEROL 0.5-3(2.5)MG/3ML NEB HHN SCH ×4 (09:39→22:14)
[2019-08-09 12:00] VITALS: BP 114/68
[2019-08-09] MEDS: CARISOPRODOL 350 MG TABLET PO PRN (18:00)
[2019-08-09] MEDS: PANTOPRAZOLE 40MG DR TABLET PO SCH (18:00)
[2019-08-09 20:00] VITALS: BP 117/61
[2019-08-10] VITALS: BP 119/76
[2019-08-10] MEDS: METHYLPREDNISOLONE SOD SUCC 40 MG/ML VIAL IV SCH ×2 (02:00→09:51)
[2019-08-10] MEDS: IPRATROPIUM/ALBUTEROL 0.5-3(2.5)MG/3ML NEB HHN SCH ×4 (02:06→13:17)
[2019-08-10 04:00] VITALS: BP 114/66
[2019-08-10] MEDS: PANTOPRAZOLE 40MG DR TABLET PO SCH (05:49)
[2019-08-10] MEDS: HYDROCODONE/ACETAMINOPHEN 10/325MG TABLET PO PRN ×3 (05:50→14:22)
[2019-08-10 08:00] VITALS: BP 97/55
[2019-08-10] MEDS: CARISOPRODOL 350 MG TABLET PO PRN ×2 (08:13→13:19)
[2019-08-10] MEDS: ENOXAPARIN 40MG/0.4ML SYR SUBCUT SCH (08:30)
[2019-08-10 12:00] VITALS: BP 114/69
[2019-08-10 14:30] VITALS: BP 144/69
== END 2019-08-10 14:45 | disposition home or self-care (01) | DRG 140 ==
LOC: ER 16:23 → EDBEDREQ 20:37 → 5WST 21:49 → EDBEDREQTM 21:53 → EDBEDREQ 21:53 → ENRESERV 22:29 → 5WST 08-09 00:06
PROVIDERS: ADMIT Internal Medicine; ATTEND Internal Medicine
DX: J43.9 Emphysema, unspecified (principal); E78.00 Pure hypercholesterolemia, unspecified; R07.89 Other chest pain; F41.1 Generalized anxiety disorder; G89.4 Chronic pain syndrome; I10 Essential (primary) hypertension; K21.9 Gastro-esophageal reflux disease without esophagitis; M79.7 Fibromyalgia; F32.9 Major depressive disorder, single episode, unspecified; J45.909 Unspecified asthma, uncomplicated; F17.210 Nicotine dependence, cigarettes, uncomplicated; K27.9 Peptic ulcer, site unspecified, unspecified as acute or chronic, without hemorrhage or perforation; Z87.11 Personal history of peptic ulcer disease; Z93.3 Colostomy status; Z79.899 Other long term (current) drug therapy; Z88.8 Allergy status to other drugs, medicaments and biological substances
CPT/HCPCS: 36415; 71045; 80305; 80320; 81003; 83605; 83880; 84484; 93005; 94640; 96365; 99285; J1650; J1956; J2060; J2270; J2405; J2920; J2930; J3475; J3490; J7030; J7620; G0480

== ENCOUNTER 2019-09-14 06:48 | Emergency (ER) | payer MEDICAID, OTHER ==
[~2019-09-14] VITALS: Ht 162.6 cm; Wt 66.0 kg
[2019-09-14] MEDS ORDERED: ONDANSETRON HCL 4MG/2ML INJ IV STA (07:22)
[2019-09-14] MEDS ORDERED: MORPHINE SULFATE 4 MG/ML CPJ (NOT FOR IM USE) IV STA (07:22)
[2019-09-14] MEDS ORDERED: SODIUM CHLORIDE 0.9% 1,000 ML IV ONE (07:22)
[2019-09-14 07:50] LABS: CLARITY URINE CLEAR (CLEAR); COLOR URINE YELLOW (YELLOW); KETONES URINE NEGATIVE (NEGATIVE); LEUKOCYTE ESTERASE URINE NEGATIVE (NEGATIVE); NITRITE URINE NEGATIVE (NEGATIVE); OCCULT BLOOD URINE NEGATIVE (NEGATIVE); PH URINE 5.5 (4.5-8.0); PROTEIN URINE NEGATIVE (NEGATIVE); SPECIFIC GRAVITY URINE 1.033 (1.005-1.030); UROBILINOGEN URINE 0.2 E.U./dL (0.2-1.0)
[2019-09-14 08:07] LABS: EOSINOPHILS % 2.1 % (0.0-5.0); HEMATOCRIT. 40.4 % (36.0-48.0); HEMOGLOBIN. 13.4 g/dL (12.0-16.0); LYMPHOCYTES % 31.2 % (20.0-50.0); MEAN CORPUSCULAR HEMOGLOBIN 30.5 pg (28.0-32.0); MEAN CORPUSCULAR VOLUME 91.8 fL (81.0-99.0); MONOCYTES % 6.7 % (2.0-8.0); PLATELET 403 x1000/uL (130-400)
[2019-09-14 08:14] LABS: CHLORIDE 108 mEq/L (98-107)
[2019-09-14] MEDS ORDERED: MORPHINE SULFATE 4 MG/ML CPJ (NOT FOR IM USE) IV ONE (08:30)
[2019-09-14] MEDS ORDERED: TRAMADOL 50MG TABLET PO ONE (11:15)
[2019-09-14 13:14] VITALS: BP 114/75
== END 2019-09-14 13:30 | disposition home or self-care (01) ==
LOC: ER 06:48
DX: R10.9 Unspecified abdominal pain (principal); R07.89 Other chest pain; M54.5 Low back pain; K21.9 Gastro-esophageal reflux disease without esophagitis; Z87.11 Personal history of peptic ulcer disease; I50.9 Heart failure, unspecified; F17.210 Nicotine dependence, cigarettes, uncomplicated; Z93.3 Colostomy status; Z88.6 Allergy status to analgesic agent; Z98.890 Other specified postprocedural states
CPT/HCPCS: 36415; 71045; 74176; 80053; 81003; 83690; 84484; 85025; 93005; 96374; 96375; 96376; 99284; J2270; J2405; J7030; Z7610

== ENCOUNTER 2019-10-06 06:34 | Inpatient (IN) | payer MEDICAID, OTHER ==
[~2019-10-06] VITALS: Ht 162.6 cm; Wt 56.7 kg
[2019-10-06] MEDS ORDERED: SODIUM CHLORIDE 0.9% 1,000 ML IV ONE (07:22)
[2019-10-06] MEDS ORDERED: ONDANSETRON HCL 4MG/2ML INJ IV STA (07:22)
[2019-10-06] MEDS ORDERED: MORPHINE SULFATE 4 MG/ML CPJ (NOT FOR IM USE) IV STA (07:22)
[2019-10-06] MEDS ORDERED: FAMOTIDINE 20MG/2ML VIAL IV STA (07:22)
[2019-10-06] MEDS ORDERED: NITROGLYCERIN OINT 1GM/INCH UDPKT TD ONE (07:30)
[2019-10-06 08:14] LABS: BASOPHILS % 0.6 % (0.0-2.0); HEMATOCRIT. 38.9 % (36.0-48.0); HEMOGLOBIN. 12.9 g/dL (12.0-16.0); LYMPHOCYTES % 24.5 % (20.0-50.0); MEAN CORPUSCULAR HEMOGLOBIN 30.6 pg (28.0-32.0); MEAN CORPUSCULAR VOLUME 91.9 fL (81.0-99.0); MEAN PLATELET VOLUME 6.6 fl (7.4-10.4); MONOCYTES % 7.2 % (2.0-8.0); NEUTROPHILS % 65.7 % (40.0-76.0); PLATELET 389 x1000/uL (130-400); RED BLOOD CELL COUNT 4.23 mill/uL (4.2-5.4); RED CELL DISTRIBUTION WIDTH 15.5 % (11.6-14.6)
[2019-10-06 08:18] LABS: CHLORIDE 109 mEq/L (98-107)
[2019-10-06 08:28] LABS: CLARITY URINE CLEAR (CLEAR); COLOR URINE YELLOW (YELLOW); KETONES URINE NEGATIVE (NEGATIVE); LEUKOCYTE ESTERASE URINE NEGATIVE (NEGATIVE); NITRITE URINE NEGATIVE (NEGATIVE); OCCULT BLOOD URINE NEGATIVE (NEGATIVE); PROTEIN URINE NEGATIVE (NEGATIVE); SPECIFIC GRAVITY URINE 1.034 (1.005-1.030); UROBILINOGEN URINE 0.2 E.U./dL (0.2-1.0)
[2019-10-06] MEDS ORDERED: ACETAMINOPHEN 325MG TABLET PO PRN (09:00)
[2019-10-06] MEDS ORDERED: ONDANSETRON HCL 4MG/2ML INJ IV PRN (09:00)
[2019-10-06] MEDS: LORAZEPAM 2MG/ML CPJ IV PRN ×2 (11:53→20:44)
[2019-10-06] MEDS: MORPHINE SULFATE 2 MG/ML CPJ (NOT FOR IM USE) IV PRN ×2 (14:45→18:44)
[2019-10-06] MEDS ORDERED: VISCOUS LIDOCAINE 2% 15 ML UDC PO NR (17:45)
[2019-10-06] MEDS ORDERED: MAGNESIUM/ALUMINUM HYDROXIDE/SIMETHICONE 30ML UDC PO NR (17:45)
[2019-10-06] MEDS: METOPROLOL TARTRATE 25MG TABLET PO SCH (21:00)
[2019-10-06 21:20] VITALS: BP 113/70
[2019-10-06] MEDS: NITROGLYCERIN OINT 1GM/INCH UDPKT TD SCH (22:45)
[2019-10-06] MEDS: MORPHINE SULFATE 4 MG/ML CPJ (NOT FOR IM USE) IV PRN (23:47)
[2019-10-07 00:19] VITALS: BP 120/73
[2019-10-07] MEDS: LORAZEPAM 2MG/ML CPJ IV PRN ×2 (02:38→11:35)
[2019-10-07 04:00] VITALS: BP 110/65
[2019-10-07] MEDS: MORPHINE SULFATE 4 MG/ML CPJ (NOT FOR IM USE) IV PRN ×2 (05:29→09:34)
[2019-10-07] MEDS: NITROGLYCERIN OINT 1GM/INCH UDPKT TD SCH (06:00)
[2019-10-07] MEDS: SUCRALFATE 1 G/10 ML UDC PO SCH ×2 (06:55→11:34)
[2019-10-07] MEDS ORDERED: OMEPRAZOLE 20MG CAPSULE EXTENDED RELEASE PO SCH (07:20)
[2019-10-07 08:51] VITALS: BP 105/67
[2019-10-07] MEDS: METOPROLOL TARTRATE 25MG TABLET PO SCH (08:58)
[2019-10-07 09:37] LABS: *AMPHETAMINES SCREEN URINE NEGATIVE (NEGATIVE); *BARBITURATES SCREEN URINE NEGATIVE (NEGATIVE); *COCAINE SCREEN URINE NEGATIVE (NEGATIVE); CANNABINOID URINE SCREEN NEGATIVE (NEGATIVE); OPIATES URINE SCREEN PRESUMTIVE POSITIVE (NEGATIVE); PHENCYCLIDINE URINE SCREEN NEGATIVE (NEGATIVE)
[2019-10-07 09:38] LABS: *BENZODIAZEPINES SCREEN URINE NEGATIVE (NEGATIVE); METHADONE URINE SCREEN NEGATIVE (NEGATIVE)
[2019-10-07] MEDS ORDERED: DIPHENHYDRAMINE 25MG CAPSULE PO PRN (11:15)
[2019-10-07 12:49] VITALS: BP 102/69
[2019-10-07] MEDS ORDERED: SUCR1TAB MT (12:52)
[2019-10-07] MEDS ORDERED: OMEP40CA34 MT (12:52)
[2019-10-07] MEDS ORDERED: TRAZODONE HCL 50MG TABLET PO SCH (21:00)
== END 2019-10-07 13:35 | disposition home or self-care (01) | DRG 241 ==
LOC: ER 06:34 → 6WST 08:25 → EDBEDREQTM 08:31 → EDBEDREQ 08:31 → ENRESERV 20:38 → 6WST 23:10
PROVIDERS: ADMIT Internal Medicine; ATTEND Internal Medicine
DX: K25.9 Gastric ulcer, unspecified as acute or chronic, without hemorrhage or perforation (principal); F17.210 Nicotine dependence, cigarettes, uncomplicated; R07.89 Other chest pain; F41.9 Anxiety disorder, unspecified; J44.9 Chronic obstructive pulmonary disease, unspecified; F32.9 Major depressive disorder, single episode, unspecified; K21.9 Gastro-esophageal reflux disease without esophagitis; Z93.3 Colostomy status; Z79.899 Other long term (current) drug therapy; Z88.8 Allergy status to other drugs, medicaments and biological substances; Z71.89 Other specified counseling
CPT/HCPCS: 36415; 71045; 80305; 81003; 83880; 84484; 93005; 93306; 96361; 96374; 96375; 96376; 99285; J2060; J2270; J2405; J3490; J7030

== ENCOUNTER 2019-10-17 19:21 | Emergency (ER) | payer MEDICAID ==
[~2019-10-17] VITALS: Ht 162.6 cm; Wt 67.0 kg
[~2019-10-17 19:21] MED LIST changes: +OMEP40CA34 MT; +SUCR1TAB MT
[2019-10-17] MEDS ORDERED: ASPIRIN 81MG TABLET PO ONE (23:15)
[2019-10-17] MEDS ORDERED: PANTOPRAZOLE SODIUM 40 MG/VIAL IV ONE (23:15)
[2019-10-17 23:27] LABS: BASOPHILS % 0.9 % (0.0-2.0); EOSINOPHILS % 0.6 % (0.0-5.0); HEMATOCRIT. 39.1 % (36.0-48.0); HEMOGLOBIN. 13.6 g/dL (12.0-16.0); MEAN CORPUSCULAR HEMOGLOBIN 31.2 pg (28.0-32.0); MEAN CORPUSCULAR VOLUME 89.6 fL (81.0-99.0); MEAN PLATELET VOLUME 7.2 fl (7.4-10.4); MONOCYTES % 5.1 % (2.0-8.0); NEUTROPHILS % 72.4 % (40.0-76.0); PLATELET 555 x1000/uL (130-400); RED BLOOD CELL COUNT 4.36 mill/uL (4.2-5.4); RED CELL DISTRIBUTION WIDTH 16.2 % (11.6-14.6)
[2019-10-17] MEDS: NITROGLYCERIN 0.4MG TABLET SL SL PRN ×2 (23:27→23:33)
[2019-10-17] MEDS ORDERED: ACETAMINOPHEN 500MG TABLET PO ONE (23:45)
[2019-10-18 00:44] LABS: CHLORIDE 103 mEq/L (98-107)
[2019-10-18] MEDS ORDERED: VISCOUS LIDOCAINE 2% 15 ML UDC PO STA (01:02)
[2019-10-18] MEDS ORDERED: MAGNESIUM/ALUMINUM HYDROXIDE/SIMETHICONE 30ML UDC PO STA (01:02)
[2019-10-18 04:43] VITALS: BP 126/86
== END 2019-10-18 04:45 | disposition home or self-care (01) ==
LOC: ER 19:21
DX: G89.29 Other chronic pain (principal); R10.9 Unspecified abdominal pain; Z76.5 Malingerer [conscious simulation]; F17.290 Nicotine dependence, other tobacco product, uncomplicated; J44.9 Chronic obstructive pulmonary disease, unspecified; F32.9 Major depressive disorder, single episode, unspecified; K21.9 Gastro-esophageal reflux disease without esophagitis; Z93.3 Colostomy status; Z98.890 Other specified postprocedural states; Z79.899 Other long term (current) drug therapy; Z88.6 Allergy status to analgesic agent
CPT/HCPCS: 36415; 71045; 74176; 80053; 83880; 84484; 85025; 93005; 96374; 99284; C9113; Z7610

== ENCOUNTER 2019-12-22 08:10 | Emergency (ER) | payer MEDICAID ==
[~2019-12-22] VITALS: Ht 162.6 cm; Wt 60.0 kg
[~2019-12-22 08:10] MED LIST changes: +OMEP40CA12 MT; -OMEP40CA34 MT; -TRAZ-213 PO; +TRAZ-252 PO
[2019-12-22] MEDS ORDERED: ONDANSETRON HCL 4MG/2ML INJ IV STA (09:11)
[2019-12-22] MEDS ORDERED: MORPHINE SULFATE 4 MG/ML CPJ (NOT FOR IM USE) IV STA (09:11)
[2019-12-22] MEDS ORDERED: FAMOTIDINE 20MG/2ML VIAL IV ONE (09:15)
[2019-12-22 09:40] LABS: BASOPHILS % 0.5 % (0.0-2.0); EOSINOPHILS % 1.9 % (0.0-5.0); HEMATOCRIT. 36.3 % (36.0-48.0); LYMPHOCYTES % 27.2 % (20.0-50.0); MEAN CORPUSCULAR HEMOGLOBIN 30.3 pg (28.0-32.0); MEAN CORPUSCULAR VOLUME 91.6 fL (81.0-99.0); MEAN PLATELET VOLUME 6.7 fl (7.4-10.4); MONOCYTES % 6.8 % (2.0-8.0); NEUTROPHILS % 63.6 % (40.0-76.0); PLATELET 523 x1000/uL (130-400); RED BLOOD CELL COUNT 3.97 mill/uL (4.2-5.4); RED CELL DISTRIBUTION WIDTH 16.3 % (11.6-14.6)
[2019-12-22 09:45] LABS: CHLORIDE 110 mEq/L (98-107)
[2019-12-22 11:53] VITALS: BP 120/72
[2019-12-22] MEDS ORDERED: MAGNESIUM/ALUMINUM HYDROXIDE/SIMETHICONE 30ML UDC PO ONE (12:15)
[2019-12-22] MEDS ORDERED: VISCOUS LIDOCAINE 2% 15 ML UDC MM PRN (12:15)
== END 2019-12-22 12:26 | disposition home or self-care (01) ==
LOC: ER 08:10
DX: K27.9 Peptic ulcer, site unspecified, unspecified as acute or chronic, without hemorrhage or perforation (principal); J44.9 Chronic obstructive pulmonary disease, unspecified; Z88.6 Allergy status to analgesic agent; Z79.899 Other long term (current) drug therapy; K21.9 Gastro-esophageal reflux disease without esophagitis; Z93.3 Colostomy status; Z87.19 Personal history of other diseases of the digestive system
CPT/HCPCS: 36415; 71045; 80053; 83690; 83880; 84484; 85025; 93005; 96374; 96375; 99285; J2270; J2405; J3490

== ENCOUNTER 2020-06-15 07:28 | Emergency (ER) | payer MEDICAID ==
[~2020-06-15] VITALS: Ht 162.6 cm; Wt 63.0 kg
[~2020-06-15 07:28] MED LIST changes: +HYDR-4009 MT; -OMEP40CA12 MT
[2020-06-15] MEDS ORDERED: ONDANSETRON HCL 4MG/2ML INJ IV STA (07:51)
[2020-06-15] MEDS ORDERED: MORPHINE SULFATE 4 MG/ML CPJ (NOT FOR IM USE) IV STA (07:51)
[2020-06-15 09:44] LABS: BASOPHILS % 0.1 % (0.0-2.0); EOSINOPHILS % 3.8 % (0.0-5.0); HEMATOCRIT. 33.4 % (36.0-48.0); HEMOGLOBIN. 10.8 g/dL (12.0-16.0); LYMPHOCYTES % 36.3 % (20.0-50.0); MEAN CORPUSCULAR VOLUME 83.6 fL (81.0-99.0); MEAN PLATELET VOLUME 6.5 fl (7.4-10.4); MONOCYTES % 5.1 % (2.0-8.0); NEUTROPHILS % 54.7 % (40.0-76.0); PLATELET 435 x1000/uL (130-400); RED BLOOD CELL COUNT 3.99 mill/uL (4.2-5.4); RED CELL DISTRIBUTION WIDTH 16.3 % (11.6-14.6)
[2020-06-15 09:47] LABS: CHLORIDE 107 mEq/L (98-107)
[2020-06-15] MEDS ORDERED: ONDANSETRON HCL 4MG/2ML INJ IV ONE (11:30)
[2020-06-15] MEDS ORDERED: MORPHINE SULFATE 4 MG/ML CPJ (NOT FOR IM USE) IV ONE (11:30)
[2020-06-15 12:00] VITALS: BP 113/69
[2020-08-12] MEDS ORDERED: ATOR10TA69 MT (16:29)
[2020-08-12] MEDS ORDERED: ASPI-1158 MT (16:29)
[2020-08-12] MEDS ORDERED: HYDR-4009 MT (16:52)
[2020-08-12] MEDS ORDERED: CARI350T27 PO (16:52)
== END 2020-06-15 12:11 | disposition home or self-care (01) ==
LOC: ER 07:50
DX: R10.84 Generalized abdominal pain (principal); R07.89 Other chest pain; R11.2 Nausea with vomiting, unspecified; R19.7 Diarrhea, unspecified; R03.0 Elevated blood-pressure reading, without diagnosis of hypertension; N32.89 Other specified disorders of bladder; I70.0 Atherosclerosis of aorta
CPT/HCPCS: 36415; 71045; 74176; 80053; 83690; 83880; 84484; 85025; 93005; 96374; 96375; 96376; 99285; J2270; J2405

== ENCOUNTER 2020-06-27 08:55 | Emergency (ER) | payer MEDICAID ==
[~2020-06-27] VITALS: Ht 162.6 cm; Wt 64.0 kg
[2020-06-27] MEDS ORDERED: ONDANSETRON HCL 4MG/2ML INJ IV STA (09:16)
[2020-06-27] MEDS ORDERED: SODIUM CHLORIDE 0.9% 1,000 ML IV ONE (09:16)
[2020-06-27] MEDS ORDERED: MORPHINE SULFATE 4 MG/ML CPJ (NOT FOR IM USE) IV STA (09:16)
[2020-06-27 09:32] LABS: BASOPHILS % 2.4 % (0.0-2.0); EOSINOPHILS % 2.9 % (0.0-5.0); HEMATOCRIT. 34.6 % (36.0-48.0); HEMOGLOBIN. 11.3 g/dL (12.0-16.0); LYMPHOCYTES % 43.1 % (20.0-50.0); MEAN CORPUSCULAR HEMOGLOBIN 26.8 pg (28.0-32.0); MEAN CORPUSCULAR VOLUME 82.2 fL (81.0-99.0); MEAN PLATELET VOLUME 6.7 fl (7.4-10.4); MONOCYTES % 6.6 % (2.0-8.0); PLATELET 440 x1000/uL (130-400); RED BLOOD CELL COUNT 4.21 mill/uL (4.2-5.4); RED CELL DISTRIBUTION WIDTH 16.7 % (11.6-14.6)
[2020-06-27 09:38] LABS: CHLORIDE 109 mEq/L (98-107)
[2020-06-27 09:44] LABS: CLARITY URINE CLEAR (CLEAR); COLOR URINE YELLOW (YELLOW); KETONES URINE NEGATIVE (NEGATIVE); LEUKOCYTE ESTERASE URINE NEGATIVE (NEGATIVE); NITRITE URINE NEGATIVE (NEGATIVE); OCCULT BLOOD URINE NEGATIVE (NEGATIVE); PROTEIN URINE TRACE (NEGATIVE); SPECIFIC GRAVITY URINE 1.021 (1.005-1.030)
[2020-06-27 10:20] LABS: INR 1.1; PROTHROMBIN TIME 11.2 sec (9.6-11.0)
[2020-06-27 11:35] VITALS: BP 124/79
== END 2020-06-27 11:40 | disposition home or self-care (01) ==
LOC: ER 08:55
DX: R10.13 Epigastric pain (principal); J44.9 Chronic obstructive pulmonary disease, unspecified; Z98.890 Other specified postprocedural states; Z88.6 Allergy status to analgesic agent
CPT/HCPCS: 36415; 71045; 74176; 80053; 81003; 81025; 83690; 84484; 85025; 85610; 93005; 96361; 96374; 96375; 99285; J2270; J2405; J7030

== ENCOUNTER 2020-08-23 14:56 | Emergency (ER) | payer OTHER ==
[~2020-08-23] VITALS: Ht 162.6 cm; Wt 58.0 kg
[~2020-08-23 14:56] MED LIST changes: +ASPI-1158 MT; +ATOR10TA69 MT
[2020-08-23] MEDS ORDERED: MORPHINE SULFATE 4 MG/ML CPJ (NOT FOR IM USE) IV STA (16:41)
[2020-08-23] MEDS ORDERED: FAMOTIDINE 20MG/2ML VIAL IV STA (16:41)
[2020-08-23] MEDS ORDERED: MAGNESIUM/ALUMINUM HYDROXIDE/SIMETHICONE 30ML UDC PO STA (16:41)
[2020-08-23] MEDS ORDERED: SODIUM CHLORIDE 0.9% 500 ML IV ONE (16:45)
[2020-08-23] MEDS ORDERED: DIATR MEGLU/DIATRIZOATE SOLN 30ML PO ONE (16:45)
[2020-08-23] MEDS ORDERED: DIATR MEGLU/DIATRIZOATE SOLN 30ML ONE (16:58)
[2020-08-23 17:55] LABS: BASOPHILS % 0.8 % (0.0-2.0); EOSINOPHILS % 1.4 % (0.0-5.0); HEMATOCRIT. 36.7 % (36.0-48.0); HEMOGLOBIN. 11.8 g/dL (12.0-16.0); LYMPHOCYTES % 34.1 % (20.0-50.0); MEAN PLATELET VOLUME 6.5 fl (7.4-10.4); MONOCYTES % 4.9 % (2.0-8.0); NEUTROPHILS % 58.8 % (40.0-76.0); PLATELET 505 x1000/uL (130-400); RED BLOOD CELL COUNT 4.53 mill/uL (4.2-5.4); RED CELL DISTRIBUTION WIDTH 20.6 % (11.6-14.6)
[2020-08-23] MEDS ORDERED: ONDANSETRON HCL 4MG/2ML INJ IV ONE (18:00)
[2020-08-23 18:01] LABS: CHLORIDE 113 mEq/L (98-107)
[2020-08-23 18:04] LABS: PROTHROMBIN TIME 10.2 sec (9.6-11.0)
[2020-08-23 18:05] LABS: ETHANOL BLOOD < 10 mg/dL
[2020-08-23 19:09] LABS: CLARITY URINE CLEAR (CLEAR); COLOR URINE YELLOW (YELLOW); KETONES URINE TRACE (NEGATIVE); LEUKOCYTE ESTERASE URINE NEGATIVE (NEGATIVE); NITRITE URINE NEGATIVE (NEGATIVE); OCCULT BLOOD URINE NEGATIVE (NEGATIVE); PROTEIN URINE TRACE (NEGATIVE); SPECIFIC GRAVITY URINE 1.038 (1.005-1.030)
[2020-08-23 19:28] LABS: *AMPHETAMINES SCREEN URINE NEGATIVE (NEGATIVE); *BARBITURATES SCREEN URINE NEGATIVE (NEGATIVE)
[2020-08-23 19:29] LABS: *BENZODIAZEPINES SCREEN URINE NEGATIVE (NEGATIVE); *COCAINE SCREEN URINE NEGATIVE (NEGATIVE); CANNABINOID URINE SCREEN NEGATIVE (NEGATIVE); METHADONE URINE SCREEN NEGATIVE (NEGATIVE); OPIATES URINE SCREEN NEGATIVE (NEGATIVE); PHENCYCLIDINE URINE SCREEN NEGATIVE (NEGATIVE)
[2020-08-23 20:30] VITALS: BP 142/76
[2020-08-23] MEDS ORDERED: IOHEXOL-300 100 ML BOTTLE ONE (21:44)
== END 2020-08-23 21:57 | disposition home or self-care (01) ==
LOC: ER 14:56
DX: R10.13 Epigastric pain (principal); R11.2 Nausea with vomiting, unspecified; I10 Essential (primary) hypertension; J44.9 Chronic obstructive pulmonary disease, unspecified; F17.290 Nicotine dependence, other tobacco product, uncomplicated; Z79.899 Other long term (current) drug therapy; Z88.6 Allergy status to analgesic agent
CPT/HCPCS: 36415; 71045; 74177; 80053; 80305; 80320; 81003; 83605; 83690; 83880; 84484; 85025; 85610; 93005; 96361; 96374; 96375; 99285; J2270; J2405; J3490; J7030; Q9963; Q9967; G0480

== ENCOUNTER 2020-10-25 13:36 | Emergency (ER) | payer OTHER ==
[~2020-10-25] VITALS: Ht 162.6 cm; Wt 62.0 kg
[2020-10-25] MEDS ORDERED: MAGNESIUM/ALUMINUM HYDROXIDE/SIMETHICONE 30ML UDC PO STA (15:01)
[2020-10-25] MEDS ORDERED: HYDROCODONE/ACETAMINOPHEN 5/325MG TABLET PO STA (15:01)
[2020-10-25] MEDS ORDERED: ONDANSETRON 4MG ODT PO STA (15:01)
[2020-10-25] MEDS ORDERED: VISCOUS LIDOCAINE 2% 15 ML UDC PO STA (15:01)
[2020-10-25 15:28] LABS: CLARITY URINE CLEAR (CLEAR); COLOR URINE YELLOW (YELLOW); KETONES URINE TRACE (NEGATIVE); LEUKOCYTE ESTERASE URINE NEGATIVE (NEGATIVE); NITRITE URINE NEGATIVE (NEGATIVE); OCCULT BLOOD URINE NEGATIVE (NEGATIVE); PH URINE 5.5 (4.5-8.0); PROTEIN URINE NEGATIVE (NEGATIVE); UROBILINOGEN URINE 0.2 E.U./dL (0.2-1.0)
[2020-10-25 16:29] LABS: CHLORIDE 114 mEq/L (98-107)
[2020-10-25 16:35] LABS: BASOPHILS % 0.6 % (0.0-2.0); EOSINOPHILS % 1.4 % (0.0-5.0); HEMATOCRIT. 29.7 % (36.0-48.0); HEMOGLOBIN. 9.5 g/dL (12.0-16.0); LYMPHOCYTES % 38.9 % (20.0-50.0); MEAN CORPUSCULAR VOLUME 81.1 fL (81.0-99.0); MEAN PLATELET VOLUME 6.4 fl (7.4-10.4); MONOCYTES % 8.5 % (2.0-8.0); NEUTROPHILS % 50.6 % (40.0-76.0); PLATELET 483 x1000/uL (130-400); RED BLOOD CELL COUNT 3.66 mill/uL (4.2-5.4); RED CELL DISTRIBUTION WIDTH 17.1 % (11.6-14.6)
[2020-10-25 17:41] VITALS: BP 121/67
== END 2020-10-25 17:41 | disposition home or self-care (01) ==
LOC: ER 14:02
DX: K29.00 Acute gastritis without bleeding (principal); D64.9 Anemia, unspecified; J44.9 Chronic obstructive pulmonary disease, unspecified; F32.9 Major depressive disorder, single episode, unspecified; F17.290 Nicotine dependence, other tobacco product, uncomplicated; Z79.899 Other long term (current) drug therapy; Z88.6 Allergy status to analgesic agent
CPT/HCPCS: 36415; 74176; 80053; 81003; 81025; 83690; 84484; 85025; 93005; 99285; Q0162

== ENCOUNTER 2021-01-03 08:05 | Emergency (ER) | payer MEDICAID, OTHER ==
[~2021-01-03] VITALS: Ht 162.6 cm; Wt 59.0 kg
[~2021-01-03 08:05] MED LIST changes: -ASPI-1158 MT; +ASPI-1406 MT; -NORCO PO
[2021-01-03] MEDS ORDERED: MORPHINE SULFATE 4 MG/ML CPJ (NOT FOR IM USE) IV STA (08:28)
[2021-01-03] MEDS ORDERED: ONDANSETRON HCL 4MG/2ML INJ IV STA (08:28)
[2021-01-03 09:01] LABS: BASOPHILS % 0.5 % (0.0-2.0); EOSINOPHILS % 0.1 % (0.0-5.0); HEMATOCRIT. 34.3 % (36.0-48.0); LYMPHOCYTES % 12.5 % (20.0-50.0); MEAN CORPUSCULAR HEMOGLOBIN 27.2 pg (28.0-32.0); MEAN CORPUSCULAR VOLUME 84.7 fL (81.0-99.0); MONOCYTES % 0.7 % (2.0-8.0); NEUTROPHILS % 86.2 % (40.0-76.0); PLATELET 296 x1000/uL (130-400); RED BLOOD CELL COUNT 4.05 mill/uL (4.2-5.4); RED CELL DISTRIBUTION WIDTH 25.2 % (11.6-14.6)
[2021-01-03 09:09] LABS: CHLORIDE 111 mEq/L (98-107)
[2021-01-03 10:08] LABS: PLATELET ESTIMATE NORMAL
[2021-01-03] MEDS ORDERED: MORPHINE SULFATE 4 MG/ML CPJ (NOT FOR IM USE) IV NR (10:44)
[2021-01-03] MEDS ORDERED: ONDANSETRON HCL 4MG/2ML INJ IV NR (10:44)
[2021-01-03] MEDS ORDERED: SODIUM CHLORIDE 0.9% 1,000 ML IV ONE (10:45)
[2021-01-03 12:38] VITALS: BP 105/61
== END 2021-01-03 13:26 | disposition home or self-care (01) ==
LOC: ER 08:05
DX: R07.89 Other chest pain (principal); R10.9 Unspecified abdominal pain; F41.9 Anxiety disorder, unspecified; J44.9 Chronic obstructive pulmonary disease, unspecified; F32.9 Major depressive disorder, single episode, unspecified; K21.9 Gastro-esophageal reflux disease without esophagitis; Z79.899 Other long term (current) drug therapy
CPT/HCPCS: 36415; 71045; 80053; 83605; 83880; 84484; 85025; 93005; 96361; 96374; 96375; 96376; 99285; J2270; J2405

== ENCOUNTER 2021-03-27 16:36 | Emergency (ER) | payer MEDICAID, OTHER ==
[~2021-03-27] VITALS: Ht 162.6 cm; Wt 60.0 kg
[2021-03-27 16:49] VITALS: BP 133/79
[2021-03-27 19:54] LABS: CLARITY URINE CLEAR (CLEAR); COLOR URINE YELLOW (YELLOW); KETONES URINE NEGATIVE (NEGATIVE); LEUKOCYTE ESTERASE URINE NEGATIVE (NEGATIVE); NITRITE URINE NEGATIVE (NEGATIVE); OCCULT BLOOD URINE NEGATIVE (NEGATIVE); PROTEIN URINE NEGATIVE (NEGATIVE); SPECIFIC GRAVITY URINE 1.016 (1.005-1.030); UROBILINOGEN URINE 0.2 E.U./dL (0.2-1.0)
[2021-03-27 19:59] LABS: BASOPHILS % 0.5 % (0.0-2.0); HEMATOCRIT. 37.8 % (36.0-48.0); HEMOGLOBIN. 12.5 g/dL (12.0-16.0); LYMPHOCYTES % 41.5 % (20.0-50.0); MEAN CORPUSCULAR HEMOGLOBIN 29.2 pg (28.0-32.0); MEAN CORPUSCULAR VOLUME 88.3 fL (81.0-99.0); MEAN PLATELET VOLUME 6.6 fl (7.4-10.4); MONOCYTES % 5.5 % (2.0-8.0); NEUTROPHILS % 51.5 % (40.0-76.0); PLATELET 370 x1000/uL (130-400); RED BLOOD CELL COUNT 4.28 mill/uL (4.2-5.4)
[2021-03-27 20:05] LABS: CHLORIDE 111 mEq/L (98-107)
[2021-03-27 20:12] LABS: PROTHROMBIN TIME 10.3 sec (9.6-11.0)
[2021-03-27 20:22] LABS: HCG SCREEN NEGATIVE
== END 2021-03-27 21:55 | disposition left against medical advice (07) ==
LOC: ER 16:46
DX: R10.9 Unspecified abdominal pain (principal); R07.9 Chest pain, unspecified
CPT/HCPCS: 36415; 80053; 81003; 84703; 85025; 99283

== ENCOUNTER 2021-06-14 17:11 | Emergency (ER) | payer OTHER ==
[~2021-06-14] VITALS: Ht 162.6 cm; Wt 64.0 kg
[2021-06-14 17:14] VITALS: BP 144/72
== END 2021-06-14 23:49 | disposition left against medical advice (07) ==
LOC: ER 17:11
DX: Z53.21 Procedure and treatment not carried out due to patient leaving prior to being seen by health care provider (principal); R07.9 Chest pain, unspecified
CPT/HCPCS: 93005

== ENCOUNTER 2022-06-15 16:09 | Emergency (ER) | payer MEDICAID ==
[~2022-06-15] VITALS: Ht 162.6 cm; Wt 68.0 kg
[2022-06-15 20:13] VITALS: BP 136/71
[2022-06-15] MEDS ORDERED: MECLIZINE 25MG TABLET PO ONE (20:15)
[2022-06-15] MEDS ORDERED: SODIUM CHLORIDE 0.9% 1,000 ML IV ONE (20:15)
[2022-06-15 20:45] LABS: BASOPHILS % 0.6 % (0.0-2.0); EOSINOPHILS % 0.8 % (0.0-5.0); HEMATOCRIT. 33.8 % (36.0-48.0); HEMOGLOBIN. 10.5 g/dL (12.0-16.0); LYMPHOCYTES % 45.1 % (20.0-50.0); MEAN CORPUSCULAR HEMOGLOBIN 24.9 pg (28.0-32.0); MEAN CORPUSCULAR VOLUME 80.4 fL (81.0-99.0); MEAN PLATELET VOLUME 6.4 fl (7.4-10.4); MONOCYTES % 5.4 % (2.0-8.0); NEUTROPHILS % 48.1 % (40.0-76.0); PLATELET 487 x1000/uL (130-400); RED BLOOD CELL COUNT 4.21 mill/uL (4.2-5.4); RED CELL DISTRIBUTION WIDTH 19.1 % (11.6-14.6)
[2022-06-15 20:56] LABS: CHLORIDE 109 mEq/L (98-107)
[2022-06-15] MEDS ORDERED: PROCHLORPERAZINE 10MG/2ML VIAL IV ONE (21:30)
[2022-06-15] MEDS ORDERED: DIPHENHYDRAMINE 50MG/ML VIAL IV ONE (21:30)
[2022-06-15] MEDS ORDERED: MECL-217 MT (22:20)
== END 2022-06-15 23:09 | disposition home or self-care (01) ==
LOC: ER 16:09
DX: H81.10 Benign paroxysmal vertigo, unspecified ear (principal); J44.9 Chronic obstructive pulmonary disease, unspecified; K21.9 Gastro-esophageal reflux disease without esophagitis; F41.9 Anxiety disorder, unspecified; F32.A Depression, unspecified; Z87.19 Personal history of other diseases of the digestive system; Z88.6 Allergy status to analgesic agent; Z88.5 Allergy status to narcotic agent
CPT/HCPCS: 36415; 80053; 85025; 93005; 96374; 96375; 99284; J0780; J1200; J7030; J8597

== ENCOUNTER 2023-02-15 12:04 | Inpatient (IN) | payer MEDICAID, OTHER ==
[~2023-02-15] VITALS: Ht 157.5 cm; Wt 73.0 kg
[~2023-02-15 12:04] MED LIST changes: -B25 PO; +DIPH-1207 PO; +MECL-217 MT
[2023-02-15] MEDS ORDERED: ONDANSETRON HCL 4MG/2ML INJ IV STA (12:18)
[2023-02-15] MEDS ORDERED: FAMOTIDINE 20MG/2ML VIAL IV STA (12:18)
[2023-02-15] MEDS ORDERED: SODIUM CHLORIDE 0.9% 1,000 ML IV ONE (12:30)
[2023-02-15 12:43] LABS: BASOPHILS % 0.2 % (0.0-2.0); EOSINOPHILS % 0.6 % (0.0-5.0); HEMATOCRIT. 32.2 % (36.0-48.0); HEMOGLOBIN. 10.7 g/dL (12.0-16.0); LYMPHOCYTES % 8.5 % (20.0-50.0); MEAN CORPUSCULAR HEMOGLOBIN 27.6 pg (28.0-32.0); MEAN CORPUSCULAR VOLUME 82.9 fL (81.0-99.0); MONOCYTES % 6.4 % (2.0-8.0); NEUTROPHILS % 84.3 % (40.0-76.0); PLATELET 455 x1000/uL (130-400); RED BLOOD CELL COUNT 3.88 mill/uL (4.2-5.4); RED CELL DISTRIBUTION WIDTH 19.9 % (11.6-14.6)
[2023-02-15 12:52] LABS: CHLORIDE 96 mEq/L (98-107)
[2023-02-15 13:01] LABS: ETHANOL BLOOD < 10 mg/dL
[2023-02-15 13:03] LABS: PROTHROMBIN TIME 10.3 sec (9.6-11.0)
[2023-02-15] MEDS ORDERED: FENTANYL CITRATE/PF 50MCG/ML 2ML VIAL IV ONE ×2 (13:30→15:15)
[2023-02-15] MEDS ORDERED: VISCOUS LIDOCAINE 2% 15 ML UDC PO STA (16:30)
[2023-02-15] MEDS ORDERED: MAGNESIUM/ALUMINUM HYDROXIDE/SIMETHICONE 30ML UDC PO STA (16:30)
[2023-02-15] MEDS ORDERED: DICYCLOMINE 10 MG/5 ML ORAL SYR PO STA (16:30)
[2023-02-15] MEDS ORDERED: CEFTRIAXONE 1GM PREMIX 50 ML IV NR (18:45)
[2023-02-15] MEDS ORDERED: CLONIDINE 0.1MG TABLET PO PRN (18:45)
[2023-02-15] MEDS ORDERED: ACETAMINOPHEN 325MG TABLET PO PRN (18:45)
[2023-02-15] MEDS ORDERED: MORPHINE SULFATE 2 MG/ML CPJ (NOT FOR IM USE) IV PRN (18:45)
[2023-02-15] MEDS: SODIUM CHLORIDE 0.9% 1,000 ML IV SCH (19:03)
[2023-02-15] MEDS: ONDANSETRON HCL 4MG/2ML INJ IV PRN (19:14)
[2023-02-15] MEDS: HYDROMORPHONE HCL/PF 2MG/ML CPJ IV PRN (19:14)
[2023-02-15 20:30] VITALS: BP 163/78
[2023-02-16] VITALS: BP 169/74
[2023-02-16] MEDS: DIPHENHYDRAMINE 50MG/ML VIAL IV PRN ×3 (00:33→20:34)
[2023-02-16] MEDS: ONDANSETRON HCL 4MG/2ML INJ IV PRN ×3 (03:23→20:35)
[2023-02-16] MEDS: HYDROMORPHONE HCL/PF 2MG/ML CPJ IV PRN ×4 (03:25→20:36)
[2023-02-16 04:00] VITALS: BP 115/76
[2023-02-16 08:00] VITALS: BP 143/77
[2023-02-16] MEDS: SODIUM CHLORIDE 0.9% 1,000 ML IV SCH (11:32)
[2023-02-16 12:00] VITALS: BP 153/80
[2023-02-16 16:00] VITALS: BP 171/79
[2023-02-16 20:00] VITALS: BP 152/71
[2023-02-16] MEDS: CEFTRIAXONE 1,000 MG in DEXTROSE 5% WATER 50 ML IV SCH (20:34)
[2023-02-16] MEDS ORDERED: NALOXONE HCL 0.4MG/ML VIAL IV PRN (22:15)
[2023-02-17] VITALS: BP 151/64
[2023-02-17] MEDS: HYDROMORPHONE HCL/PF 2MG/ML CPJ IV PRN ×5 (02:44→23:12)
[2023-02-17 04:00] VITALS: BP 115/60
[2023-02-17] MEDS: SODIUM CHLORIDE 0.9% 1,000 ML IV SCH ×2 (04:34→15:06)
[2023-02-17 08:00] VITALS: BP 129/67
[2023-02-17] MEDS: DIPHENHYDRAMINE 50MG/ML VIAL IV PRN ×3 (10:54→23:46)
[2023-02-17] MEDS: ONDANSETRON HCL 4MG/2ML INJ IV PRN ×3 (10:55→22:59)
[2023-02-17 11:58] VITALS: BP 130/64
[2023-02-17 16:00] VITALS: BP 114/56
[2023-02-17] MEDS: CEFTRIAXONE 1,000 MG in DEXTROSE 5% WATER 50 ML IV SCH (20:12)
[2023-02-18] MEDS: ONDANSETRON HCL 4MG/2ML INJ IV PRN ×4 (03:32→21:32)
[2023-02-18] MEDS: HYDROMORPHONE HCL/PF 2MG/ML CPJ IV PRN ×5 (03:36→20:25)
[2023-02-18] MEDS: DIPHENHYDRAMINE 50MG/ML VIAL IV PRN ×3 (04:10→21:32)
[2023-02-18] MEDS: SODIUM CHLORIDE 0.9% 1,000 ML IV SCH (13:25)
[2023-02-18 15:26] LABS: BASOPHILS % 0.2 % (0.0-2.0); HEMATOCRIT. 30.2 % (36.0-48.0); MEAN CORPUSCULAR HEMOGLOBIN 26.9 pg (28.0-32.0); MEAN CORPUSCULAR VOLUME 81.7 fL (81.0-99.0); MEAN PLATELET VOLUME 6.9 fl (7.4-10.4); MONOCYTES % 4.9 % (2.0-8.0); NEUTROPHILS % 86.9 % (40.0-76.0); PLATELET 656 x1000/uL (130-400); RED CELL DISTRIBUTION WIDTH 19.5 % (11.6-14.6)
[2023-02-18 15:41] LABS: CHLORIDE 99 mEq/L (98-107)
[2023-02-18 15:50] LABS: PHOSPHORUS 3.4 mg/dL (2.5-4.9)
[2023-02-18] MEDS: CEFTRIAXONE 1,000 MG in DEXTROSE 5% WATER 50 ML IV SCH (20:25)
[2023-02-19] MEDS: POTASSIUM CHLORIDE 20MEQ TABLET SR PO NR ×2 (01:27→01:44)
[2023-02-19] MEDS: HYDROMORPHONE HCL/PF 2MG/ML CPJ IV PRN ×6 (01:29→23:34)
[2023-02-19] MEDS: SODIUM CHLORIDE 0.9% 1,000 ML IV SCH ×2 (06:26→23:33)
[2023-02-19] MEDS: ONDANSETRON HCL 4MG/2ML INJ IV PRN (11:01)
[2023-02-19] MEDS: DIPHENHYDRAMINE 50MG/ML VIAL IV PRN ×2 (12:12→19:16)
[2023-02-19 19:22] VITALS: BP 149/91
[2023-02-19] MEDS: CEFTRIAXONE 1,000 MG in DEXTROSE 5% WATER 50 ML IV SCH (20:17)
[2023-02-20] VITALS: BP 111/65
[2023-02-20] MEDS: DIPHENHYDRAMINE 50MG/ML VIAL IV PRN ×4 (02:07→21:19)
[2023-02-20] MEDS: HYDROMORPHONE HCL/PF 2MG/ML CPJ IV PRN ×5 (04:42→22:14)
[2023-02-20 06:32] LABS: CHLORIDE 101 mEq/L (98-107)
[2023-02-20 06:42] LABS: PHOSPHORUS 3.1 mg/dL (2.5-4.9)
[2023-02-20 06:59] LABS: HEMATOCRIT. 25.2 % (36.0-48.0); HEMOGLOBIN. 8.4 g/dL (12.0-16.0); MEAN CORPUSCULAR HEMOGLOBIN 27.3 pg (28.0-32.0); MEAN CORPUSCULAR VOLUME 82.2 fL (81.0-99.0); MEAN PLATELET VOLUME 7.3 fl (7.4-10.4); PLATELET 677 x1000/uL (130-400); RED BLOOD CELL COUNT 3.07 mill/uL (4.2-5.4); RED CELL DISTRIBUTION WIDTH 19.1 % (11.6-14.6)
[2023-02-20 08:00] VITALS: BP 110/80
[2023-02-20] MEDS ORDERED: HYDROCODONE/ACETAMINOPHEN 5/325MG TABLET PO PRN (09:15)
[2023-02-20] MEDS: ONDANSETRON HCL 4MG/2ML INJ IV PRN ×2 (09:27→16:24)
[2023-02-20 11:45] LABS: PLATELET ESTIMATE INCREASED
[2023-02-20 12:31] VITALS: BP 112/68
[2023-02-20 16:09] VITALS: BP 116/69
[2023-02-20] MEDS: SODIUM CHLORIDE 0.9% 1,000 ML IV SCH (16:12)
[2023-02-20 20:00] VITALS: BP 109/42
[2023-02-20] MEDS: CEFTRIAXONE 1,000 MG in DEXTROSE 5% WATER 50 ML IV SCH (21:15)
[2023-02-21] VITALS: BP 109/67
[2023-02-21] MEDS: HYDROMORPHONE HCL/PF 2MG/ML CPJ IV PRN ×5 (02:34→20:54)
[2023-02-21 04:00] VITALS: BP 118/74
[2023-02-21 05:38] LABS: HEMATOCRIT. 23.9 % (36.0-48.0); HEMOGLOBIN. 7.9 g/dL (12.0-16.0); MEAN PLATELET VOLUME 7.1 fl (7.4-10.4); PLATELET 715 x1000/uL (130-400); RED BLOOD CELL COUNT 2.92 mill/uL (4.2-5.4); RED CELL DISTRIBUTION WIDTH 18.8 % (11.6-14.6)
[2023-02-21 06:06] LABS: CHLORIDE 98 mEq/L (98-107)
[2023-02-21] MEDS: DIPHENHYDRAMINE 50MG/ML VIAL IV PRN ×3 (06:42→20:19)
[2023-02-21 08:00] VITALS: BP 118/66
[2023-02-21] MEDS: SODIUM CHLORIDE 0.9% 1,000 ML IV SCH (08:05)
[2023-02-21 12:00] VITALS: BP 105/67
[2023-02-21 16:00] VITALS: BP 106/69
[2023-02-21 20:00] VITALS: BP 118/66
[2023-02-22] VITALS (7 sets, daily range): BP systolic 90–141; BP diastolic 54–76
[2023-02-22] MEDS: SODIUM CHLORIDE 0.9% 1,000 ML IV SCH (00:29)
[2023-02-22] MEDS: PIPERACILLIN/TAZOBACTAM 3.375 G in DEXTROSE 5% WATER 50 ML IV SCH ×4 (00:29→22:23)
[2023-02-22] MEDS: HYDROMORPHONE HCL/PF 2MG/ML CPJ IV PRN ×6 (00:46→23:47)
[2023-02-22] MEDS: DIPHENHYDRAMINE 50MG/ML VIAL IV PRN ×2 (07:07→22:44)
[2023-02-22] MEDS: ONDANSETRON HCL 4MG/2ML INJ IV PRN ×2 (07:07→10:22)
[2023-02-22 07:49] LABS: PLATELET ESTIMATE NORMAL
[2023-02-22 09:15] LABS: BASOPHILS % 0.2 % (0.0-2.0); EOSINOPHILS % 0.2 % (0.0-5.0); HEMATOCRIT. 21.9 % (36.0-48.0); HEMOGLOBIN. 7.3 g/dL (12.0-16.0); LYMPHOCYTES % 7.6 % (20.0-50.0); MEAN CORPUSCULAR HEMOGLOBIN 27.3 pg (28.0-32.0); MEAN CORPUSCULAR VOLUME 82.1 fL (81.0-99.0); MEAN PLATELET VOLUME 7.2 fl (7.4-10.4); MONOCYTES % 12.4 % (2.0-8.0); NEUTROPHILS % 79.6 % (40.0-76.0); PLATELET 744 x1000/uL (130-400); RED BLOOD CELL COUNT 2.66 mill/uL (4.2-5.4); RED CELL DISTRIBUTION WIDTH 18.7 % (11.6-14.6)
[2023-02-22 09:26] LABS: CHLORIDE 97 mEq/L (98-107)
[2023-02-22] MEDS ORDERED: IOHEXOL-300 100 ML BOTTLE ONE (17:12)
[2023-02-22 19:18] LABS: CLARITY URINE CLEAR (CLEAR); COLOR URINE YELLOW (YELLOW); KETONES URINE 1+ (NEGATIVE); LEUKOCYTE ESTERASE URINE TRACE (NEGATIVE); NITRITE URINE NEGATIVE (NEGATIVE); OCCULT BLOOD URINE NEGATIVE (NEGATIVE); PH URINE 6.5 (4.5-8.0); PROTEIN URINE 1+ (NEGATIVE)
[2023-02-22] MEDS ORDERED: ENOXAPARIN 40MG/0.4ML SYR SUBCUT SCH (21:00)
[2023-02-23] VITALS: BP 111/63
[2023-02-23 04:00] VITALS: BP 95/67
[2023-02-23] MEDS: HYDROMORPHONE HCL/PF 2MG/ML CPJ IV PRN ×4 (04:52→19:16)
[2023-02-23] MEDS: PIPERACILLIN/TAZOBACTAM 3.375 G in DEXTROSE 5% WATER 50 ML IV SCH ×3 (06:02→22:33)
[2023-02-23 08:00] VITALS: BP 110/66
[2023-02-23] MEDS: SODIUM CHLORIDE 0.9% 1,000 ML IV SCH (09:06)
[2023-02-23 12:00] VITALS: BP 94/55
[2023-02-23] MEDS: DIPHENHYDRAMINE 50MG/ML VIAL IV PRN (13:02)
[2023-02-23 16:00] VITALS: BP 90/51
[2023-02-23 16:19] LABS: HEMATOCRIT. 23.7 % (36.0-48.0); MEAN CORPUSCULAR HEMOGLOBIN 27.6 pg (28.0-32.0); MEAN CORPUSCULAR VOLUME 82.1 fL (81.0-99.0); MEAN PLATELET VOLUME 7.5 fl (7.4-10.4); PLATELET 752 x1000/uL (130-400); RED BLOOD CELL COUNT 2.89 mill/uL (4.2-5.4)
[2023-02-23 16:32] LABS: CHLORIDE 95 mEq/L (98-107)
[2023-02-23 17:33] LABS: PLATELET ESTIMATE INCREASED
[2023-02-23 20:00] VITALS: BP 92/60
[2023-02-24] VITALS (14 sets, daily range): BP systolic 96–118; BP diastolic 53–71
[2023-02-24] MEDS: DIPHENHYDRAMINE 50MG/ML VIAL IV PRN ×3 (00:35→21:34)
[2023-02-24] MEDS: ONDANSETRON HCL 4MG/2ML INJ IV PRN ×2 (00:35→15:50)
[2023-02-24] MEDS: HYDROMORPHONE HCL/PF 2MG/ML CPJ IV PRN ×5 (00:38→21:31)
[2023-02-24] MEDS: SODIUM CHLORIDE 0.9% 1,000 ML IV SCH ×2 (04:00→19:25)
[2023-02-24] MEDS: PIPERACILLIN/TAZOBACTAM 3.375 G in DEXTROSE 5% WATER 50 ML IV SCH ×3 (06:27→22:00)
[2023-02-24] MEDS ORDERED: SODIUM BICARBONATE 4% (2.4MEQ) 5ML VIAL IV ONE (09:58)
[2023-02-24] MEDS ORDERED: LIDOCAINE HCL 1% 10 MG/ML 10ML VIAL ONE (09:58)
[2023-02-24] MEDS ORDERED: FENTANYL CITRATE/PF 50MCG/ML 2ML VIAL ONE (11:41)
[2023-02-25] VITALS: BP 101/56
[2023-02-25] MEDS: HYDROMORPHONE HCL/PF 2MG/ML CPJ IV PRN ×5 (03:25→22:19)
[2023-02-25] MEDS: DIPHENHYDRAMINE 50MG/ML VIAL IV PRN ×5 (03:34→22:19)
[2023-02-25 04:00] VITALS: BP 100/50
[2023-02-25 07:06] LABS: BASOPHILS % 0.4 % (0.0-2.0); EOSINOPHILS % 0.4 % (0.0-5.0); HEMATOCRIT. 22.4 % (36.0-48.0); HEMOGLOBIN. 7.8 g/dL (12.0-16.0); LYMPHOCYTES % 17.1 % (20.0-50.0); MEAN CORPUSCULAR HEMOGLOBIN 28.2 pg (28.0-32.0); MEAN CORPUSCULAR VOLUME 81.5 fL (81.0-99.0); MEAN PLATELET VOLUME 6.9 fl (7.4-10.4); MONOCYTES % 11.4 % (2.0-8.0); NEUTROPHILS % 70.7 % (40.0-76.0); PLATELET 819 x1000/uL (130-400); RED BLOOD CELL COUNT 2.75 mill/uL (4.2-5.4)
[2023-02-25 07:23] LABS: CHLORIDE 97 mEq/L (98-107)
[2023-02-25 08:00] VITALS: BP 119/66
[2023-02-25] MEDS: PIPERACILLIN/TAZOBACTAM 3.375 G in DEXTROSE 5% WATER 50 ML IV SCH ×3 (08:50→22:54)
[2023-02-25 12:00] VITALS: BP 99/55
[2023-02-25] MEDS: SODIUM CHLORIDE 0.9% 1,000 ML IV SCH (12:12)
[2023-02-25] MEDS: ONDANSETRON HCL 4MG/2ML INJ IV PRN (14:31)
[2023-02-25 16:00] VITALS: BP 88/53
[2023-02-25 20:00] VITALS: BP 104/65
[2023-02-26 04:00] VITALS: BP 119/72
[2023-02-26] MEDS: PIPERACILLIN/TAZOBACTAM 3.375 G in DEXTROSE 5% WATER 50 ML IV SCH ×2 (05:45→13:43)
[2023-02-26] MEDS: SODIUM CHLORIDE 0.9% 1,000 ML IV SCH ×2 (05:45→21:25)
[2023-02-26] MEDS: HYDROMORPHONE HCL/PF 2MG/ML CPJ IV PRN ×4 (06:41→21:39)
[2023-02-26] MEDS: DIPHENHYDRAMINE 50MG/ML VIAL IV PRN ×4 (06:45→21:38)
[2023-02-26 07:12] LABS: BASOPHILS % 0.6 % (0.0-2.0); HEMATOCRIT. 22.1 % (36.0-48.0); HEMOGLOBIN. 7.5 g/dL (12.0-16.0); LYMPHOCYTES % 18.7 % (20.0-50.0); MEAN CORPUSCULAR HEMOGLOBIN 27.9 pg (28.0-32.0); MEAN PLATELET VOLUME 6.4 fl (7.4-10.4); MONOCYTES % 11.5 % (2.0-8.0); NEUTROPHILS % 68.2 % (40.0-76.0); PLATELET 790 x1000/uL (130-400); RED BLOOD CELL COUNT 2.69 mill/uL (4.2-5.4); RED CELL DISTRIBUTION WIDTH 19.2 % (11.6-14.6)
[2023-02-26 07:34] LABS: CHLORIDE 98 mEq/L (98-107)
[2023-02-26 08:00] VITALS: BP 98/57
[2023-02-26 11:50] VITALS: BP 114/65
[2023-02-26 16:00] VITALS: BP 106/66
[2023-02-26] MEDS: MEROPENEM 1,000 MG in SODIUM CHLORIDE 0.9% 100 ML IV SCH (18:13)
[2023-02-26 20:00] VITALS: BP 107/61
[2023-02-27 05:36] LABS: CHLORIDE 101 mEq/L (98-107)
[2023-02-27] MEDS: MEROPENEM 1,000 MG in SODIUM CHLORIDE 0.9% 100 ML IV SCH ×3 (05:36→18:49)
[2023-02-27 05:50] LABS: BASOPHILS % 0.4 % (0.0-2.0); EOSINOPHILS % 0.7 % (0.0-5.0); HEMATOCRIT. 24.1 % (36.0-48.0); LYMPHOCYTES % 21.9 % (20.0-50.0); MEAN CORPUSCULAR HEMOGLOBIN 27.4 pg (28.0-32.0); MEAN CORPUSCULAR VOLUME 82.8 fL (81.0-99.0); MEAN PLATELET VOLUME 6.9 fl (7.4-10.4); MONOCYTES % 12.4 % (2.0-8.0); NEUTROPHILS % 64.6 % (40.0-76.0); PLATELET 797 x1000/uL (130-400); RED BLOOD CELL COUNT 2.92 mill/uL (4.2-5.4); RED CELL DISTRIBUTION WIDTH 19.2 % (11.6-14.6)
[2023-02-27 08:00] VITALS: BP 116/62
[2023-02-27] MEDS: HYDROMORPHONE HCL/PF 2MG/ML CPJ IV PRN ×4 (08:48→23:22)
[2023-02-27] MEDS: DIPHENHYDRAMINE 50MG/ML VIAL IV PRN ×3 (11:09→20:43)
[2023-02-27 12:00] VITALS: BP 111/63
[2023-02-27] MEDS: SODIUM CHLORIDE 0.9% 1,000 ML IV SCH (14:05)
[2023-02-27] MEDS: ONDANSETRON HCL 4MG/2ML INJ IV PRN ×2 (14:55→20:42)
[2023-02-27 16:06] VITALS: BP 109/67
[2023-02-27 20:00] VITALS: BP 102/61
[2023-02-28] VITALS: BP 108/64
[2023-02-28] MEDS: ONDANSETRON HCL 4MG/2ML INJ IV PRN ×4 (00:36→22:57)
[2023-02-28] MEDS: DIPHENHYDRAMINE 50MG/ML VIAL IV PRN ×6 (00:36→22:57)
[2023-02-28] MEDS: HYDROMORPHONE HCL/PF 2MG/ML CPJ IV PRN ×4 (03:05→19:30)
[2023-02-28] MEDS: MEROPENEM 1,000 MG in SODIUM CHLORIDE 0.9% 100 ML IV SCH ×3 (03:05→17:45)
[2023-02-28] MEDS: SODIUM CHLORIDE 0.9% 1,000 ML IV SCH (06:30)
[2023-02-28 08:00] VITALS: BP 106/65
[2023-02-28 12:00] VITALS: BP 90/55
[2023-02-28] MEDS ORDERED: IOHEXOL-300 50 ML BOTTLE IV ONE (13:40)
[2023-02-28 16:00] VITALS: BP 100/60
[2023-02-28 20:00] VITALS: BP 102/70
[2023-03-01] VITALS: BP 99/65
[2023-03-01] MEDS: HYDROMORPHONE HCL/PF 2MG/ML CPJ IV PRN ×6 (00:09→23:45)
[2023-03-01] MEDS: DIPHENHYDRAMINE 50MG/ML VIAL IV PRN ×5 (03:00→23:49)
[2023-03-01] MEDS: MEROPENEM 1,000 MG in SODIUM CHLORIDE 0.9% 100 ML IV SCH ×3 (03:00→19:23)
[2023-03-01] MEDS: ONDANSETRON HCL 4MG/2ML INJ IV PRN ×3 (03:00→19:14)
[2023-03-01] MEDS: SODIUM CHLORIDE 0.9% 1,000 ML IV SCH ×2 (03:00→16:05)
[2023-03-01 04:00] VITALS: BP 101/67
[2023-03-01 08:00] VITALS: BP 101/69
[2023-03-01 12:00] VITALS: BP 100/70
[2023-03-01] MEDS ORDERED: LIDOCAINE HCL 1% 10 MG/ML 10ML VIAL ONE (12:44)
[2023-03-01 16:00] VITALS: BP 104/59
[2023-03-01 20:00] VITALS: BP 103/59
[2023-03-02] VITALS: BP 123/70
[2023-03-02] MEDS: MEROPENEM 1,000 MG in SODIUM CHLORIDE 0.9% 100 ML IV SCH ×2 (02:59→15:58)
[2023-03-02 04:00] VITALS: BP 109/59
[2023-03-02] MEDS: HYDROMORPHONE HCL/PF 2MG/ML CPJ IV PRN ×4 (05:30→21:00)
[2023-03-02] MEDS: DIPHENHYDRAMINE 50MG/ML VIAL IV PRN ×3 (05:36→23:09)
[2023-03-02 08:00] VITALS: BP 96/60
[2023-03-02] MEDS: SODIUM CHLORIDE 0.9% 1,000 ML IV SCH (08:45)
[2023-03-02 12:00] VITALS: BP 102/70
[2023-03-02 12:39] LABS: BASOPHILS % 0.5 % (0.0-2.0); EOSINOPHILS % 0.8 % (0.0-5.0); HEMATOCRIT. 24.7 % (36.0-48.0); HEMOGLOBIN. 8.3 g/dL (12.0-16.0); MEAN CORPUSCULAR HEMOGLOBIN 28.2 pg (28.0-32.0); MEAN CORPUSCULAR VOLUME 84.4 fL (81.0-99.0); MEAN PLATELET VOLUME 6.6 fl (7.4-10.4); MONOCYTES % 7.3 % (2.0-8.0); NEUTROPHILS % 57.4 % (40.0-76.0); PLATELET 671 x1000/uL (130-400); RED BLOOD CELL COUNT 2.93 mill/uL (4.2-5.4); RED CELL DISTRIBUTION WIDTH 19.9 % (11.6-14.6)
[2023-03-02 13:01] LABS: CHLORIDE 105 mEq/L (98-107)
[2023-03-02] MEDS: ONDANSETRON HCL 4MG/2ML INJ IV PRN (14:04)
[2023-03-02 16:00] VITALS: BP 98/70
[2023-03-02 20:00] VITALS: BP 103/58
[2023-03-03] VITALS: BP 100/61
[2023-03-03] MEDS: HYDROMORPHONE HCL/PF 2MG/ML CPJ IV PRN ×5 (01:50→22:55)
[2023-03-03] MEDS: MEROPENEM 1,000 MG in SODIUM CHLORIDE 0.9% 100 ML IV SCH ×3 (01:53→18:36)
[2023-03-03] MEDS: SODIUM CHLORIDE 0.9% 1,000 ML IV SCH ×2 (01:53→18:37)
[2023-03-03 08:00] VITALS: BP 113/67
[2023-03-03 09:49] LABS: BASOPHILS % 0.5 % (0.0-2.0); HEMATOCRIT. 28.2 % (36.0-48.0); HEMOGLOBIN. 9.5 g/dL (12.0-16.0); LYMPHOCYTES % 26.8 % (20.0-50.0); MEAN CORPUSCULAR HEMOGLOBIN 28.4 pg (28.0-32.0); MEAN CORPUSCULAR VOLUME 84.4 fL (81.0-99.0); MEAN PLATELET VOLUME 6.6 fl (7.4-10.4); MONOCYTES % 6.6 % (2.0-8.0); NEUTROPHILS % 65.1 % (40.0-76.0); PLATELET 636 x1000/uL (130-400); RED BLOOD CELL COUNT 3.34 mill/uL (4.2-5.4)
[2023-03-03] MEDS: ONDANSETRON HCL 4MG/2ML INJ IV PRN ×2 (10:25→18:52)
[2023-03-03 12:00] VITALS: BP 119/71
[2023-03-03] MEDS: DIPHENHYDRAMINE 50MG/ML VIAL IV PRN (13:35)
[2023-03-03 16:00] VITALS: BP 116/63
[2023-03-03 20:00] VITALS: BP 110/65
[2023-03-04] VITALS: BP 96/62
[2023-03-04] MEDS: MEROPENEM 1,000 MG in SODIUM CHLORIDE 0.9% 100 ML IV SCH ×3 (02:00→18:53)
[2023-03-04 04:00] VITALS: BP 104/62
[2023-03-04] MEDS: HYDROMORPHONE HCL/PF 2MG/ML CPJ IV PRN ×4 (04:22→20:58)
[2023-03-04 05:57] LABS: BASOPHILS % 1.3 % (0.0-2.0); EOSINOPHILS % 1.3 % (0.0-5.0); HEMATOCRIT. 25.9 % (36.0-48.0); HEMOGLOBIN. 8.6 g/dL (12.0-16.0); LYMPHOCYTES % 33.4 % (20.0-50.0); MEAN CORPUSCULAR HEMOGLOBIN 28.2 pg (28.0-32.0); MEAN CORPUSCULAR VOLUME 84.7 fL (81.0-99.0); MEAN PLATELET VOLUME 6.9 fl (7.4-10.4); MONOCYTES % 6.5 % (2.0-8.0); NEUTROPHILS % 57.5 % (40.0-76.0); PLATELET 568 x1000/uL (130-400); RED BLOOD CELL COUNT 3.05 mill/uL (4.2-5.4); RED CELL DISTRIBUTION WIDTH 20.4 % (11.6-14.6)
[2023-03-04] MEDS: ONDANSETRON HCL 4MG/2ML INJ IV PRN ×3 (06:52→20:58)
[2023-03-04 07:01] LABS: CHLORIDE 106 mEq/L (98-107)
[2023-03-04 08:00] VITALS: BP 98/55
[2023-03-04] MEDS: SODIUM CHLORIDE 0.9% 1,000 ML IV SCH (11:36)
[2023-03-04 12:00] VITALS: BP 119/68
[2023-03-04 16:00] VITALS: BP 103/69
[2023-03-04] MEDS: DIPHENHYDRAMINE 50MG/ML VIAL IV PRN (18:53)
[2023-03-04 20:00] VITALS: BP 102/68
[2023-03-05] VITALS: BP 108/65
[2023-03-05] MEDS: HYDROMORPHONE HCL/PF 2MG/ML CPJ IV PRN ×4 (02:12→20:58)
[2023-03-05] MEDS: MEROPENEM 1,000 MG in SODIUM CHLORIDE 0.9% 100 ML IV SCH ×3 (02:12→17:25)
[2023-03-05] MEDS: SODIUM CHLORIDE 0.9% 1,000 ML IV SCH ×2 (02:12→20:44)
[2023-03-05 04:00] VITALS: BP 107/71
[2023-03-05 08:00] VITALS: BP 90/50
[2023-03-05 12:00] VITALS: BP 110/63
[2023-03-05] MEDS: ONDANSETRON HCL 4MG/2ML INJ IV PRN ×2 (13:59→18:41)
[2023-03-05] MEDS ORDERED: QUET100T PO (14:26)
[2023-03-05] MEDS ORDERED: TRAZ-252 PO (14:26)
[2023-03-05] MEDS ORDERED: DIPHENHYDRAMINE 25MG CAPSULE PO PRN (14:45)
[2023-03-05 16:00] VITALS: BP 116/69
[2023-03-05] MEDS: OXYCODONE HCL/ACETAMINOPHEN 5/325MG TABLET PO PRN ×2 (17:22→23:20)
[2023-03-05 20:00] VITALS: BP 104/61
[2023-03-06] VITALS: BP 113/65
[2023-03-06] MEDS: HYDROMORPHONE HCL/PF 2MG/ML CPJ IV PRN ×5 (01:03→22:47)
[2023-03-06 04:00] VITALS: BP 114/63
[2023-03-06] MEDS: ONDANSETRON HCL 4MG/2ML INJ IV PRN (05:21)
[2023-03-06 08:00] VITALS: BP 102/54
[2023-03-06] MEDS: OXYCODONE HCL/ACETAMINOPHEN 5/325MG TABLET PO PRN (09:20)
[2023-03-06 12:00] VITALS: BP 113/65
[2023-03-06] MEDS: SODIUM CHLORIDE 0.9% 1,000 ML IV SCH (12:45)
[2023-03-06 16:00] VITALS: BP 113/63
[2023-03-06 20:00] VITALS: BP 107/71
[2023-03-07] VITALS: BP 110/65
[2023-03-07 04:00] VITALS: BP 110/65
[2023-03-07] MEDS: HYDROMORPHONE HCL/PF 2MG/ML CPJ IV PRN (04:08)
[2023-03-07] MEDS: SODIUM CHLORIDE 0.9% 1,000 ML IV SCH (05:10)
[2023-03-07 08:00] VITALS: BP 127/41
[2023-03-07] MEDS ORDERED: LACTOBACILLUS GG CAPSULE PO SCH (09:00)
[2023-03-07] MEDS: OXYCODONE HCL/ACETAMINOPHEN 5/325MG TABLET PO PRN (09:43)
[2023-03-07 12:00] VITALS: BP 90/59
[2023-03-07 16:00] VITALS: BP 99/59
[2023-03-07] MEDS ORDERED: HYDROMORPHONE HCL/PF 2MG/ML CPJ IV PRN (16:00)
== END 2023-03-07 16:19 | disposition home health service (06) | DRG 720 ==
LOC: ER 12:15 → 6EST 16:18 → EDBEDREQ 16:23 → EDBEDREQTM 16:23 → ENRESERV 19:39 → ER 20:20
PROVIDERS: ADMIT Internal Medicine; ATTEND Internal Medicine
PROC: 0D9W30Z Drainage of Peritoneum with Drainage Device, Percutaneous Approach (ICD-10-PCS; principal; 2023-02-24)
PROC: 02HV33Z Insertion of Infusion Device into Superior Vena Cava, Percutaneous Approach (ICD-10-PCS; 2023-03-01)
PROC: B5181ZA Fluoroscopy of Superior Vena Cava using Low Osmolar Contrast, Guidance (ICD-10-PCS; 2023-03-01)
PROC: B548ZZA Ultrasonography of Superior Vena Cava, Guidance (ICD-10-PCS; 2023-03-01)
DX: A41.9 Sepsis, unspecified organism (principal); K65.1 Peritoneal abscess; E87.1 Hypo-osmolality and hyponatremia; G89.18 Other acute postprocedural pain; E86.0 Dehydration; E87.6 Hypokalemia; K21.9 Gastro-esophageal reflux disease without esophagitis; D75.839 Thrombocytosis, unspecified; D64.9 Anemia, unspecified; G89.29 Other chronic pain; Z76.5 Malingerer [conscious simulation]; Z87.11 Personal history of peptic ulcer disease; Z82.49 Family history of ischemic heart disease and other diseases of the circulatory system; Z90.49 Acquired absence of other specified parts of digestive tract
CPT/HCPCS: 36415; 36573; 71045; 74018; 74176; 74177; 74181; 76700; 77012; 78227; 80048; 80053; 80076; 80320; 81003; 82248; 83605; 83735; 84100; 84145; 84484; 85025; 87075; 87077; 87186; 93005; 93970; 99291; A9537; C1725; C1729; C1769; C1893; J0696; J1170; J1200; J2185; J2270; J2405; J2543; J3010; J3490; J7030; J7050; J7060; L8514; Q0163; Q9967; G0480

== ENCOUNTER 2023-04-04 11:07 | Emergency (ER) | payer MEDICAID, OTHER ==
[~2023-04-04] VITALS: Ht 162.6 cm; Wt 54.0 kg
[~2023-04-04 11:07] MED LIST changes: -HYDR-4009 MT; -PROM6.254 PO
[2023-04-04 11:50] LABS: BASOPHILS % 0.4 % (0.0-2.0); CHLORIDE 110 mEq/L (98-107); EOSINOPHILS % 2.6 % (0.0-5.0); HEMOGLOBIN. 11.7 g/dL (12.0-16.0); MEAN CORPUSCULAR HEMOGLOBIN 27.9 pg (28.0-32.0); MEAN CORPUSCULAR VOLUME 86.5 fL (81.0-99.0)
[2023-04-04 11:52] LABS: HEMATOCRIT. 36.4 % (36.0-48.0); MEAN PLATELET VOLUME 6.6 fl (7.4-10.4); MONOCYTES % 3.4 % (2.0-8.0); NEUTROPHILS % 66.6 % (40.0-76.0); PLATELET 499 x1000/uL (130-400); RED CELL DISTRIBUTION WIDTH 18.9 % (11.6-14.6)
[2023-04-04 12:12] LABS: CLARITY URINE CLEAR (CLEAR); COLOR URINE YELLOW (YELLOW); KETONES URINE TRACE (NEGATIVE); LEUKOCYTE ESTERASE URINE NEGATIVE (NEGATIVE); NITRITE URINE NEGATIVE (NEGATIVE); OCCULT BLOOD URINE NEGATIVE (NEGATIVE); PROTEIN URINE TRACE (NEGATIVE); SPECIFIC GRAVITY URINE 1.027 (1.005-1.030)
[2023-04-04] MEDS ORDERED: DICYCLOMINE 10 MG/5 ML ORAL SYR PO STA (14:27)
[2023-04-04] MEDS ORDERED: MAGNESIUM/ALUMINUM HYDROXIDE/SIMETHICONE 30ML UDC PO STA (14:27)
[2023-04-04] MEDS ORDERED: ONDANSETRON HCL 4MG/2ML INJ IV STA (14:27)
[2023-04-04] MEDS ORDERED: VISCOUS LIDOCAINE 2% 15 ML UDC PO STA (14:27)
[2023-04-04] MEDS ORDERED: SODIUM CHLORIDE 0.9% 1,000 ML IV ONE (14:30)
[2023-04-04] MEDS ORDERED: MORPHINE SULFATE 2 MG/ML CPJ (NOT FOR IM USE) IV ONE (14:30)
[2023-04-04] MEDS ORDERED: KETOROLAC 15MG/ML VIAL IV ONE (16:00)
[2023-04-04] MEDS ORDERED: IOHEXOL-300 100 ML BOTTLE ONE (17:26)
[2023-04-04] MEDS ORDERED: OXYCODONE HCL/ACETAMINOPHEN 5/325MG TABLET PO NR (17:30)
[2023-04-04] MEDS ORDERED: ONDA4TAB50 MT (18:37)
[2023-04-04] MEDS ORDERED: BISM262T15 MT (18:38)
[2023-04-04 18:49] VITALS: BP 145/87
== END 2023-04-04 18:51 | disposition home or self-care (01) ==
LOC: ER 11:07
DX: R10.9 Unspecified abdominal pain (principal); J44.1 Chronic obstructive pulmonary disease with (acute) exacerbation; Z79.899 Other long term (current) drug therapy; Z90.49 Acquired absence of other specified parts of digestive tract
CPT/HCPCS: 36415; 74177; 80053; 81003; 83690; 85025; 93005; 96361; 96374; 96375; 99285; J1885; J2405; J7030; Q9967; J2270

== ENCOUNTER 2024-04-03 13:29 | Inpatient (IN) | payer MEDICAID, OTHER ==
[~2024-04-03] VITALS: Ht 315 cm; Wt 49.9 kg
[~2024-04-03 13:29] MED LIST changes: +BISM262T15 MT; +ONDA4TAB50 MT
[2024-04-03] MEDS: MORPHINE SULFATE 4 MG/ML INJ (FOR IV/IM USE) IV STA (14:12)
[2024-04-03] MEDS: SODIUM CHLORIDE 0.9% 1,000 ML IV ONE ×2 (14:12→16:37)
[2024-04-03] MEDS: ACETAMINOPHEN 1000MG/100ML 100 ML IV ONE ×2 (14:13→20:00)
[2024-04-03] MEDS: METOCLOPRAMIDE HCL 10MG/2ML VIAL IV ONE (14:43)
[2024-04-03] MEDS: DIPHENHYDRAMINE 50MG/ML VIAL IV ONE (14:43)
[2024-04-03 15:00] LABS: D-DIMER 0.31 mg/L FEU (<0.50); PROTHROMBIN TIME 11.2 sec (9.6-11.0); TROPONIN I HIGH SENSITIVITY 7 ng/L (3.0-34)
[2024-04-03 15:05] LABS: CHLORIDE 104 mEq/L (98-107); POTASSIUM 3.9 mEq/L (3.5-5.1); SODIUM 136 mEq/L (136-145)
[2024-04-03 15:06] LABS: CALCIUM 8.7 mg/dL (8.7-10.4); CARBON DIOXIDE 14 mEq/L (21-32)
[2024-04-03 15:10] LABS: LACTIC ACID 9.4 mmol/L (0.4-2.0)
[2024-04-03 15:11] LABS: CREATININE 1.7 mg/dL (0.6-1.0)
[2024-04-03 15:12] LABS: GLUCOSE 176 mg/dL (70-105); UREA NITROGEN BLOOD 39 mg/dL (9-23)
[2024-04-03 15:29] LABS: ETHANOL BLOOD < 10 mg/dL (<10)
[2024-04-03 15:43] LABS: BG HCO3 ACT 14.2 mmol/L (22.0-26.0); BG PCO2 35.2 mmHg (35.0-45.0); BG PH 7.224 (7.350-7.450); BG PO2 < 30.3 mmHg (75.0-100.0); BG SAMPLE SITE LEFT BRACHIAL; BG TOTAL HEMOGLOBIN < 4.5 g/dL (12.0-18.0); BG VENT MODE ROOM AIR
[2024-04-03] MEDS: ONDANSETRON HCL 4MG/2ML INJ IV ONE (16:11)
[2024-04-03 16:36] LABS: MEAN CORPUSCULAR HEMOGLOBIN 27.9 pg (28.0-32.0); MEAN CORPUSCULAR HGB CONC 30.2 g/dL (31.0-37.0); MEAN CORPUSCULAR VOLUME 92.3 fL (81.0-99.0); MEAN PLATELET VOLUME 7.2 fl (7.4-10.4); PLATELET 314 x1000/uL (130-400); RED BLOOD CELL COUNT 1.31 mill/uL (4.2-5.4); RED CELL DISTRIBUTION WIDTH 17.7 % (11.6-14.6); WHITE BLOOD COUNT 13.4 x1000/uL (4.5-11.0)
[2024-04-03] MEDS: CEFTRIAXONE 1GM/50ML 50 ML IV NR (16:37)
[2024-04-03 16:40] LABS: DIFFERENTIAL COMMENT 1
[2024-04-03 16:47] LABS: HEMOGLOBIN. 3.6 g/dL (12.0-16.0)
[2024-04-03 16:49] LABS: TROPONIN I HIGH SENSITIVITY 6 ng/L (3.0-34)
[2024-04-03 16:50] LABS: HEMATOCRIT. 12.1 % (36.0-48.0)
[2024-04-03] MEDS ORDERED: PANTOPRAZOLE 80 MG in SODIUM CHLORIDE 0.9% 100 ML IV STA (17:07)
[2024-04-03] MEDS: MORPHINE SULFATE 4 MG/ML INJ (FOR IV/IM USE) IV NR (17:15)
[2024-04-03] MEDS: VANCOMYCIN 1G PREMIX 200 ML IV NR (17:15)
[2024-04-03] MEDS: PANTOPRAZOLE SODIUM 40 MG/VIAL IV NR (17:28)
[2024-04-03 17:45] LABS: ANISOCYTOSIS 1+; PLATELET ESTIMATE NORMAL
[2024-04-03] MEDS ORDERED: PANTOPRAZOLE 80 MG in SODIUM CHLORIDE 0.9% 100 ML IV SCH ×2 (17:45→23:30)
[2024-04-03 17:58] LABS: IRON 34 ug/dL (50-170)
[2024-04-03 18:00] LABS: ALANINE AMINOTRANSFERASE 10 IU/L (10-49); ASPARTATE AMINOTRANSFERASE 26 IU/L (<34)
[2024-04-03 18:01] LABS: ALBUMIN 3.6 g/dL (3.2-4.8); BILIRUBIN TOTAL 0.2 mg/dL (0.1-1.0); TOTAL IRON BINDING CAPACITY 377 ug/dl (250-425)
[2024-04-03 18:02] LABS: BILIRUBIN DIRECT < 0.1 mg/dL (<=3.0); PROTEIN TOTAL 5.6 g/dL (6.0-8.3)
[2024-04-03 20:00] VITALS: BP_SYST 139; BP_DIAS 75; BP_DIAS 90; PULSE 98; RESP 19; TEMP 98
[2024-04-03 22:00] VITALS: BP 130/88; PULSE 99; RESP 23
[2024-04-03] MEDS ORDERED: OCTREOTIDE 50 MCG in SODIUM CHLORIDE 0.9% 100 ML IV ONE (23:00)
[2024-04-03 23:30] VITALS: BP 116/90; PULSE 99; RESP 19; TEMP 98
[2024-04-03] MEDS: ONDANSETRON HCL 4MG/2ML INJ IV PRN (23:42)
[2024-04-03] MEDS ORDERED: OCTREOTIDE 1,000 MCG in SODIUM CHLORIDE 0.9% 98 ML IV PRN (23:45)
[2024-04-04] VITALS (22 sets, daily range): BP systolic 123–169; BP diastolic 74–118; PULSE 74–114; RESP 9–32; TEMP 97–100
[2024-04-04] MEDS: PANTOPRAZOLE 80 MG in SODIUM CHLORIDE 0.9% 100 ML IV SCH
[2024-04-04] MEDS: DIPHENHYDRAMINE 50MG/ML VIAL IV NR ×3 (00:08→06:05)
[2024-04-04] MEDS: MORPHINE SULFATE 2 MG/ML CPJ (NOT FOR IM USE) IV PRN (00:08)
[2024-04-04] MEDS: MORPHINE SULFATE 2 MG/ML CPJ (NOT FOR IM USE) IV NR ×2 (02:51→06:01)
[2024-04-04] MEDS: HYDRALAZINE 20MG/ML VIAL IV PRN (02:53)
[2024-04-04] MEDS: HYDRALAZINE 20MG/ML VIAL IV NR (05:59)
[2024-04-04 07:17] LABS: HEMATOCRIT. 31.6 % (36.0-48.0); MEAN CORPUSCULAR HEMOGLOBIN 29.3 pg (28.0-32.0); MEAN CORPUSCULAR VOLUME 83.8 fL (81.0-99.0); PLATELET 217 x1000/uL (130-400); RED BLOOD CELL COUNT 3.77 mill/uL (4.2-5.4); RED CELL DISTRIBUTION WIDTH 15.7 % (11.6-14.6)
[2024-04-04 07:27] LABS: DIFFERENTIAL COMMENT 1
[2024-04-04 07:36] LABS: CALCIUM 8.6 mg/dL (8.7-10.4); CHLORIDE 106 mEq/L (98-107); POTASSIUM 3.7 mEq/L (3.5-5.1); SODIUM 136 mEq/L (136-145)
[2024-04-04 07:37] LABS: CARBON DIOXIDE 19 mEq/L (21-32)
[2024-04-04 07:42] LABS: CREATININE 1.1 mg/dL (0.6-1.0); GLUCOSE 121 mg/dL (70-105); UREA NITROGEN BLOOD 21 mg/dL (9-23)
[2024-04-04] MEDS ORDERED: HYDROCODONE/ACETAMINOPHEN 5/325MG TABLET PO PRN (11:15)
[2024-04-04] MEDS: CEFTRIAXONE 1GM/50ML 50 ML IV SCH (13:07)
[2024-04-04] MEDS: AMLODIPINE 10MG TABLET PO SCH (13:07)
[2024-04-04] MEDS: IRON SUCROSE COMPLEX 100 MG/5 ML ML IV SCH (13:10)
[2024-04-04] MEDS: OXYCODONE HCL/ACETAMINOPHEN 5/325MG TABLET PO PRN (14:30)
[2024-04-04] MEDS ORDERED: NALOXONE HCL 0.4MG/ML VIAL IV PRN (15:00)
[2024-04-04 17:36] LABS: PLATELET ESTIMATE NORMAL
[2024-04-04 18:50] LABS: FERRITIN 14 ng/mL (10-291)
[2024-04-04 18:51] LABS: VITAMIN B12 SERUM 514 pg/mL (211-911)
[2024-04-04 19:05] LABS: FOLIC ACID (FOLATE) SERUM > 20.00 ng/mL (>5.38)
[2024-04-04 19:19] LABS: CLARITY URINE CLEAR (CLEAR); COLOR URINE YELLOW (YELLOW); GLUCOSE URINE NEGATIVE (NEGATIVE); KETONES URINE TRACE (NEGATIVE); LEUKOCYTE ESTERASE URINE NEGATIVE (NEGATIVE); NITRITE URINE NEGATIVE (NEGATIVE); OCCULT BLOOD URINE TRACE (NEGATIVE); PH URINE 6.5 (4.5-8.0); PROTEIN URINE NEGATIVE (NEGATIVE); UROBILINOGEN URINE 0.2 E.U./dL (0.2-1.0)
[2024-04-04 19:27] LABS: *AMPHETAMINES SCREEN URINE NEGATIVE (NEGATIVE); *BARBITURATES SCREEN URINE NEGATIVE (NEGATIVE); *BENZODIAZEPINES SCREEN URINE NEGATIVE (NEGATIVE); *COCAINE SCREEN URINE NEGATIVE (NEGATIVE); CANNABINOID URINE SCREEN NEGATIVE (NEGATIVE); ECSTASY MDMA SCREEN URINE NEGATIVE (NEGATIVE); METHADONE URINE SCREEN NEGATIVE (NEGATIVE); OPIATES URINE SCREEN PRESUMPTIVE POSITIVE (NEGATIVE); PHENCYCLIDINE URINE SCREEN NEGATIVE (NEGATIVE)
[2024-04-04 19:48] LABS: BACTERIA URINE TRACE; RBC URINE 0-2 /hpf (0-2); SQUAMOUS EPITHELIAL CELL URINE FEW /lpf (RARE/1+); WBC URINE 0-2 /hpf (0-2)
[2024-04-05] VITALS (10 sets, daily range): BP systolic 103–139; BP diastolic 66–94; PULSE 67–84; RESP 11–19; TEMP 98.6–99; O2SAT 97
[2024-04-05 07:54] LABS: PROTHROMBIN TIME 10.8 sec (9.6-11.0)
[2024-04-05 08:03] LABS: CHLORIDE 103 mEq/L (98-107); POTASSIUM 4.1 mEq/L (3.5-5.1); SODIUM 137 mEq/L (136-145)
[2024-04-05 08:04] LABS: CALCIUM 9.1 mg/dL (8.7-10.4); CARBON DIOXIDE 24 mEq/L (21-32)
[2024-04-05 08:09] LABS: CREATININE 1.1 mg/dL (0.6-1.0); GLUCOSE 110 mg/dL (70-105); UREA NITROGEN BLOOD 11 mg/dL (9-23)
[2024-04-05 08:41] LABS: BASOPHILS % 0.3 % (0.0-2.0); EOSINOPHILS % 0.1 % (0.0-5.0); HEMOGLOBIN. 10.7 g/dL (12.0-16.0); LYMPHOCYTES % 19.7 % (20.0-50.0); MEAN CORPUSCULAR HEMOGLOBIN 29.9 pg (28.0-32.0); MEAN CORPUSCULAR HGB CONC 34.6 g/dL (31.0-37.0); MEAN CORPUSCULAR VOLUME 86.5 fL (81.0-99.0); MEAN PLATELET VOLUME 6.9 fl (7.4-10.4); MONOCYTES % 10.5 % (2.0-8.0); NEUTROPHILS % 69.4 % (40.0-76.0); PLATELET 228 x1000/uL (130-400); RED BLOOD CELL COUNT 3.58 mill/uL (4.2-5.4); RED CELL DISTRIBUTION WIDTH 15.6 % (11.6-14.6)
[2024-04-05] MEDS ORDERED: PROPOFOL 200MG/20ML VIAL IV ONE (11:46)
[2024-04-05] MEDS ORDERED: FENTANYL CITRATE/PF 50MCG/ML 2ML VIAL IV PRN (12:00)
[2024-04-05] MEDS: ONDANSETRON HCL 4MG/2ML INJ IV PRN (13:21)
[2024-04-06] MEDS ORDERED: ONDA4TAB50 MT (01:08)
[2024-04-06] MEDS ORDERED: PANT40TA51 MT (01:08)
[2024-04-06] MEDS ORDERED: BISM-77 MT (01:08)
== END 2024-04-05 19:24 | disposition home or self-care (01) | DRG 663 ==
LOC: ER 13:29 → 5EST 19:49 → EDBEDREQ 20:23 → EDBEDREQSVC 20:23 → EDBEDREQTM 20:23
PROVIDERS: ADMIT Internal Medicine; ATTEND Internal Medicine
PROC: 30233N1 Transfusion of Nonautologous Red Blood Cells into Peripheral Vein, Percutaneous Approach (ICD-10-PCS; 2024-04-03)
PROC: 0DJ68ZZ Inspection of Stomach, Via Natural or Artificial Opening Endoscopic (ICD-10-PCS; principal; 2024-04-05)
DX: D50.9 Iron deficiency anemia, unspecified (principal); N17.0 Acute kidney failure with tubular necrosis; Z43.3 Encounter for attention to colostomy; I11.0 Hypertensive heart disease with heart failure; I50.9 Heart failure, unspecified; J44.9 Chronic obstructive pulmonary disease, unspecified; F32.A Depression, unspecified; K92.1 Melena; K44.9 Diaphragmatic hernia without obstruction or gangrene; D72.829 Elevated white blood cell count, unspecified; I25.10 Atherosclerotic heart disease of native coronary artery without angina pectoris; K21.9 Gastro-esophageal reflux disease without esophagitis; F41.9 Anxiety disorder, unspecified; R09.02 Hypoxemia; M79.7 Fibromyalgia; K64.8 Other hemorrhoids; G89.29 Other chronic pain; Z76.5 Malingerer [conscious simulation]; Z87.11 Personal history of peptic ulcer disease; Z82.49 Family history of ischemic heart disease and other diseases of the circulatory system; Z88.5 Allergy status to narcotic agent
CPT/HCPCS: 36415; 36600; 71045; 71270; 74178; 80048; 80076; 80305; 80320; 81003; 82375; 82607; 82728; 82746; 83540; 83550; 83605; 83880; 84484; 85025; 85044; 85379; 86850; 86900; 86920; 93005; 99291; C9113; J0360; J0696; J1200; J2270; J2405; J2704; J2765; J3370; J7030; J7050; P9016; G0480; J0131

== ENCOUNTER 2024-04-05 23:46 | Emergency (ER) | payer OTHER ==
[2024-04-05 23:56] VITALS: O2SAT 98
[2024-04-06 00:14] LABS: BASOPHILS % 0.2 % (0.0-2.0); EOSINOPHILS % 0.2 % (0.0-5.0); HEMATOCRIT. 35.4 % (36.0-48.0); HEMOGLOBIN. 11.8 g/dL (12.0-16.0); LYMPHOCYTES % 22.3 % (20.0-50.0); MEAN CORPUSCULAR HEMOGLOBIN 29.4 pg (28.0-32.0); MEAN CORPUSCULAR HGB CONC 33.3 g/dL (31.0-37.0); MEAN CORPUSCULAR VOLUME 88.5 fL (81.0-99.0); MEAN PLATELET VOLUME 6.7 fl (7.4-10.4); MONOCYTES % 11.3 % (2.0-8.0); PLATELET 257 x1000/uL (130-400); RED BLOOD CELL COUNT 4.01 mill/uL (4.2-5.4); RED CELL DISTRIBUTION WIDTH 15.9 % (11.6-14.6)
[2024-04-06] MEDS: PANTOPRAZOLE 40MG DR TABLET PO NR (00:27)
[2024-04-06] MEDS: ACETAMINOPHEN 325MG TABLET PO NR (00:28)
[2024-04-06 00:35] LABS: POTASSIUM 4.1 mEq/L (3.5-5.1)
[2024-04-06 00:41] LABS: CREATININE 1.2 mg/dL (0.6-1.0)
[2024-04-06] MEDS: MAGNESIUM/ALUMINUM HYDROXIDE/SIMETHICONE 30ML UDC PO ONE (00:41)
[2024-04-06 00:43] VITALS: TEMP 98
[2024-04-06] MEDS ORDERED: BISM-77 MT (01:08)
[2024-04-06] MEDS ORDERED: ONDA4TAB50 MT (01:08)
[2024-04-06] MEDS ORDERED: PANT40TA51 MT (01:08)
[2024-04-06 02:23] VITALS: BP 123/72; PULSE 63; RESP 17
== END 2024-04-06 02:24 | disposition home or self-care (01) ==
LOC: ER 23:46
DX: K29.70 Gastritis, unspecified, without bleeding (principal); R13.10 Dysphagia, unspecified; D64.9 Anemia, unspecified; F41.9 Anxiety disorder, unspecified; I50.9 Heart failure, unspecified; J44.9 Chronic obstructive pulmonary disease, unspecified; F32.9 Major depressive disorder, single episode, unspecified; K21.9 Gastro-esophageal reflux disease without esophagitis; Z90.49 Acquired absence of other specified parts of digestive tract; Z79.899 Other long term (current) drug therapy
CPT/HCPCS: 36415; 80048; 85025; 99284